=== PATIENT | male | born 1955 | race Caucasian/White ===

== ENCOUNTER 2019-04-29 09:42 | Inpatient (IN) | payer MEDICARE, MEDICAID, SELFPAY ==
[2019-04-29] VITALS (18 sets, daily range): BP systolic 100–161; BP diastolic 63–113; PULSE 71–120; RESP 16–28; TEMP 36–36.8; O2SAT 81–100
--- NOTE | 2019-04-29 | ECHO_ITS ---
Patient Info Name: Dez Platt Age: 64 years : 1955 Gender: Male Ht: 68 in Wt: 250 lbs BSA: 2.38 m2 HR: 95 bpm Heart Rhythm: Sinus Rhythm Technical Quality: Poor Exam Date: 04/29/2019 4:55 PM Exam Location: [facility] Pulmonary Patient Status: Inpatient Admit Date: 04/29/2019 Staff Ordering Physician: Wes Mandujano MD Coverstitch Elastic Attacher: Tomy Loco RDCS Attending Provider: Eliza Tilley MD Referring Physician: Nazia GOMEZ; Exam Type: CA echo dop color flow w con Study Info Indications R06.02 - Shortness of breath Complete two-dimensional, color flow and Doppler transthoracic echocardiogram is performed with contrast to opacify the left ventrical and to improve the deliniation of the left ventrical endocarial boarders. Contrast/Agitated Saline Contrast/Ag. Saline: Definity Amount: 3.00 ml Administered By: Adelaida Ansari RN Reason for Poor Study: poor echocardiographic windows History/Risk Factors SOB, COPD exacerbation; CAD, HTN. Summary 1. Technically difficult study, poor image quality. Low normal LV systolic function, ejection fraction estimated at about 50-55%. Cannot comment on segmental wall motion abnormality due to poor image quality. Diastolic dysfunction is present. valves are not well visualized. No hemodynamically significant aortic stenosis by Doppler. Unable to assess RVSP due to suboptimal TR jet. Left Ventricle Left ventricular chamber dimension is normal. Left ventricular systolic function is normal, estimated at 50-55%. There is mildly increased left ventricular wall thickness. Left ventricular septal wall motion is normal. The left ventricular diastolic function is abnormal. Right Ventricle Right ventricular chamber dimension is normal. Right ventricular systolic function is normal. Left Atria Left atrial chamber dimension is not well visualized. Right Atria Right atrial chamber dimension is not well visualized. Aortic Valve The aortic valve is not well visualized. Pulmonic Valve The pulmonic valve is not well visualized. Mitral Valve The mitral valve has not well visualized. Tricuspid Valve The tricuspid valve leaflets are not well visualized. Pericardium/Pleural The pericardium appears epicardial fat pad. Aorta The aortic root size at the sinus of Valsalva is not well visualized. The prox ascending aorta size is not well visualized. Left Ventricular Outflow Tract Name Value Normal LVOT 2D LVOT Diameter 2.00 cm LVOT Doppler LVOT Peak Gradient 3 mmHg LVOT Mean Gradient 1 mmHg LVOT VTI 10.60 cm LVOT VTI/AV VTI Ratio 0.59 LVOT Stroke Volume 33.41 ml LVOT CO 2.99 l/min LVOT CI 1.26 L/min/m2 Aortic Valve Name Value Normal
--- NOTE | ~2019-04-29 | XR_ITS ---
EXAMINATION: XR chest 2V EXAM DATE: 04/29/2019 10:26 INDICATION: Upper mid back pain since fall 2018. TECHNIQUE: Frontal and lateral projections of the chest obtained and reviewed. Comparison is made to prior examination from 05/11/2018. FINDINGS: The lungs are clear. There are no pleural effusions. The cardiomediastinal silhouette is within normal limits. There is no pneumothorax suspected. The bones and soft tissues are unremarkab le. IMPRESSION: No acute cardiopulmonary findings. Reviewed, dictated and finalized at location A. ETRICS INSTRUCTOR
--- NOTE | ~2019-04-29 | CT_ITS ---
EXAMINATION: CTA chest PE protocol EXAM DATE: 04/30/2019 09:28 INDICATION: Respiratory recent travel. COPD emphysema bronchitis asthma. Elevated troponin. History h ypertension. TECHNIQUE: Spiral CTA of the chest (pulmonary arteries) was performed with 100 cc Omnipaque 350 intr avenous contrast injection. Images were acquired during the pulmonary arterial phase. Coronal maxi mum intensity projection 3D-reconstructions were created by the technologist on dedicated workstation . Axial, coronal and sagittal reformatted images were reviewed. The dose-length product (DLP) for t his examination was 781.06 mGy-cm. The exposure was tailored according to patient size (auto mA exp osure control), and iterative reconstruction (ASIR) was used as additional dose reduction technique. Comparison is made to prior examination from 02/15/2019. FINDINGS: Pulmonary arteries are well opacified and without intraluminal filling defects. Mildly dil ated ascending aorta at 4.6 cm. The main, central pulmonary arteries are dilated which can indicate e levated pulmonary arterial pressure, pulmonary arterial hypertension. No thoracic aortic dissection . There is moderate to severe emphysema, upper lobes most affected. Some scattered small regions of bilateral tree-in-bud opacities, post infectious or possibly infectious. These are new compared to pr ior study. No confluent consolidation. There are no pleural or pericardial effusions. Tracheobronc hial tree is patent. There is no mediastinal, hilar or axillary lymphadenopathy. There is no pneu mothorax. Heart normal in size. There is moderate coronary arterial calcification, arterial scler osis. Upper abdomen is unremarkable. There is mild thoracic spondylosis without osteoblastic or os teolytic lesions identified. IMPRESSION: 1. No pulmonary emboli. 2. Small regions tree-in-bud opacities likely postinfectious or possibly infectious. These are new c ompared to February examination. 3. Moderate to severe emphysema. Reviewed, dictated and finalized at location A. OW DRAPER IMPRESSION: 1. No pulmonary emboli. 2. Small regions tree-in-bud opacities likely postinfectious or possibly infec tious. These are new compared to February examination. 3. Moderate to severe emphysema.
--- NOTE | 2019-04-29 09:50 | ECG_ITS ---
Measurements Intervals [place] Rate: 112 P: 83 MT: 177 QRS: 239 QRSD: 109 T: 62 QT: 334 QTc: 457 Interpretive Statements SINUS TACHYCARDIA RIGHT AXIS DEVIATION INCOMPLETE RIGHT BUNDLE BRANCH BLOCK CONSIDER ANTEROLATERAL INFARCT, AGE INDETERMINATE INFERIOR INFARCT, AGE INDETERMINATE BASELINE ARTIFACT- I, II, III, AVR, AVL, AVF, V1 ABNORMAL ECG Electronically Signed On 04-29-2019 17:26:42 ILLUSTRATOR SET by Yonatan Kennedy D.O.
[2019-04-29 10:29] LABS: Basophils Percent Auto 0.3 % (0.2-1.2); Eosinophils Absolute Auto 0.1 K/mm3 (0-0.3); Eosinophils Percent Auto 0.6 % (0-4.4); Hemoglobin 14.5 g/dL (14.0-18.0); Immature Granulocyte Absolute 0.09 K/mm3 (0.00-0.031); Immature Granulocyte Percent A 0.7 % (0-0.5); Lymphocytes Absolute Auto 0.83 K/mm3 (0.9-3.2); Lymphocytes Percent Auto 6.8 % (18.3-44.2); Mean Corpuscular HGB Conc 33.7 g/dl (32-36); Mean Corpuscular Hemoglobin 36.3 pg (26-34); Mean Corpuscular Volume 107.5 fl (80-100); Mean Platelet Volume 10.3 fl (7.4-10.4); Monocytes Absolute Auto 1.1 K/mm3 (0.1-0.6); Monocytes Percent Auto 9.3 % (2.6-8.5); Neutrophils Absolute Auto 10.1 K/mm3 (1.3-6.7); Neutrophils Percent Auto 82.3 % (45.5-73.1); Platelet Count Result 334 k/mm3 (150-375); Red Cell Distribution Width 13.4 % (11.5-14.5); White Blood Count 12.2 K/mm3 (4.5-10.0)
--- NOTE | 2019-04-29 11:11 | ED.SOB ---
HPI - SOB/Dyspnea General Chief Complaint: Shortness of Breath/Dyspnea Stated Complaint: anxiety/diff breathing Time Seen by Provider: 04/29/19 09:54 Source: patient and RN notes reviewed Mode of arrival: ambulatory Limitations: no limitations History of Present Illness HPI Narrative: Pt is a 64 y/o male who presents to the ED with c/o SOB which began 5 days ago. Pt states he recently traveled by air from [place] back here 5 days ago and has been experiencing increasing SOB and anxiety since then. He also reports diaphoresis and a productive cough of white sputum. He reports his symptoms are alleviated when he sits up, but are aggravated when he lays down on his back. Pt reports he is typically on 2 liters of oxygen at night only, but this has not been alleviating his symptoms. Pt was at 81% oxygen saturation upon arrival to the ED. After starting the pt on 4 liters of oxygen, his oxygen saturation increased to 95%. Pt reports a PMHx of COPD, but denies a PMHx of CHF. MD elicited complaint: shortness of breath Pertinent past history: COPD Onset (ago): day(s) (5 days ago) Context: anxiety and other (recent air travel) Timing: constant Exacerbating factors: lying flat Relieving factors: oxygen (4 liters) and other (sitting up) Known history of: COPD Associated symptoms: cough (productive), sputum production (white) and diaphoresis Related Data Home Medications Medication Instructions Recorded Confirmed albuterol sulfate 2.5 mg INHALATION Q4-6H PRN 01/30/19 alprazolam 0.25 mg tablet 0.25 mg PO BID 01/30/19 metoprolol succinate 50 mg capsule 50 mg PO DAILY 01/30/19 sprinkle, ext. release 24 hr aspirin 81 mg tablet,delayed 81 mg PO DAILY 01/31/19 release ursodiol 300 mg capsule 300 mg PO QID cap 01/31/19 Allergies Allergy/AdvReac Type Severity Reaction Status Date / Time adhesive tape Allergy Mild BLISTERS Verified 03/05/19 10:50 ciprofloxacin Allergy Unknown Rash Verified 03/05/19 10:50 venom-honey bee Allergy Unknown ANAPHYLAXIS Verified 03/05/19 10:50 Review of Systems Review of Systems: All systems reviewed & are unremarkable except as noted in HPI and below Constitutional: Constitutional: Reports excessive sweating Cardiovascular: Cardiovascular: Reports diaphoresis Respiratory: Respiratory: Reports cough (productive), Reports dyspnea and Reports other (white sputum production) Psychiatric: Psychiatric: Reports anxiety (increased) [facility] Past Medical History Medical History (Updated 04/29/19 @ 15:48 by Michel Kline MD) Anemia Arthritis CAD (coronary atherosclerotic disease) Diverticulitis Esophageal ulcer GERD (gastroesophageal reflux disease) GI bleed Hypercholesterolemia Hypertension Liver disease Rectal polyp TIA (transient ischemic attack) Surgical History Surgical History (Updated 04/29/19 @ 11:29 by Raeann Bardales) H/O inguinal hernia repair H/O vasectomy History of appendectomy History of colon resection Hx of tonsillectomy Social History Social History Smoking packs per day: 1 Smoking cigarettes per day: 20.0 Smoking status: Current every day smoker Alcohol intake: current Gender identity (if verbalized by the patient): Male Exam Narrative: Exam Narrative: GENERAL: Well-appearing, well-nourished, extremely diaphoretic and anxious. HEAD: Normocephalic, atraumatic. EYES: PERRLA and EOMI. ENT: Mucous membranes moist. NECK: Supple. CHEST: Bilateral wheeze and rhonchi HEART: Regular rate and rhythm. No murmur heard. Normal peripheral pulses. ABDOMEN: Soft, non tender, non distended, normal active bowel sounds. EXTREMITIES: Normal range of motion. No edema. SKIN: Diaphoretic NEURO: No focal deficits. Alert and oriented x3. PSYCH: Normal mood and affect. Course Course Emergency Course: Patient have to work after couple doses of Ativan seem to be more relaxed. However throughout his entire stay he den
[2019-04-29 11:16] LABS: Blood Urea Nitrogen 12 mg/dL (9-20); Calcium 9.5 mg/dL (8.4-10.2); Carbon Dioxide 29 mmol/L (22-30); Chloride 96 mmol/L (98-107); Estimated CRCL calculation 92 ml/min; Estimated Glomerular Filt Rate > 60; Glucose 123 mg/dL (75-110); Sodium 136 mmol/L (137-145)
[2019-04-29] MEDS: LORAZEPAM INJ 2 MG/ML VIAL 0.5 MG IV PUSH ×2 (11:18→13:30)
[2019-04-29] MEDS: methylPREDNISolone SOD SUCC 125 MG VIAL (11:19)
[2019-04-29] MEDS: FUROSEMIDE INJ 40 MG/4 ML VIAL (11:19)
[2019-04-29 11:38] LABS: Alveolar/Arterial O2 Gradient 121.1 mmHg; Base Excess ABG 3.2 mEq/l (+/-2.0); Device NASAL CANNULA; Fractional Inspired Oxygen 36 %; HCO3 ABG 30.2 mEq/l (22.0-26.0); Modified Allen's Test Pass; Oxygen Content ABG 19.5 %vol (16.0-22.0); Oxygen Saturation ABG 93.4 % (95.0-100.0); Oxyhemoglobin 91.1 % THb (90.0-100.0); PCO2 ABG 55.4 mmHg (35.0-45.0); PO2 ABG 71.3 mmHg (80.0-100.0); PO2 FiO2 Ratio Arterial Blood 1.98 %; Site Drawn RIGHT RADIAL; Total Hemoglobin 15.2 g/dL (12.0-18.0); pH ABG 7.355 (7.350-7.450)
[2019-04-29 11:39] LABS: NT Pro B Type Natriuretic Pept 347 PG/ML (5-100)
--- NOTE | 2019-04-29 13:03 | ECG_ITS ---
Measurements Intervals [place] Rate: 102 P: 76 IA: 167 QRS: 239 QRSD: 109 T: 66 QT: 351 QTc: 458 Interpretive Statements SINUS TACHYCARDIA RIGHT AXIS DEVIATION INCOMPLETE RIGHT BUNDLE BRANCH BLOCK LOW QRS VOLTAGE IN LIMB LEADS POOR R WAVE PROGRESSION, ANTERIOR LEADS MINIMAL Q WAVES- LATERAL LEADS INFERIOR INFARCT, AGE INDETERMINATE BORDERLINE T WAVE ABNORMALITY- ANTERIOR LEADS BASELINE ARTIFACT- II, III, AVL, AVF, V1, V3-V6 ABNORMAL ECG Electronically Signed On 04-29-2019 17:33:32 INFRASTRUCTURE TECHNICIAN by Yonatan Kennedy D.O.
--- NOTE | 2019-04-29 13:26 | PC.NURSE ---
ERP CONRADO VERBAL ORDER FOR 0.5 MG ATIVAN IVP STAT. ORDER PLACED.
[2019-04-29 13:49] LABS: D Dimer 0.86 ug/mL (<0.48)
[2019-04-29 14:15] LABS: Troponin I 0.649 ng/mL (0.000-0.034)
[2019-04-29] MEDS: METOPROLOL TARTRATE INJ 5 MG/5 ML VIAL (15:21)
[2019-04-29] MEDS: NITROGLYCERIN OINTMENT 1 INCH DOSE (15:21)
--- NOTE | 2019-04-29 16:04 | PM.CNCAR ---
Assessment and Plan Additional Plan Elevated troponin level done in this 64-year-old man who appears clinically to have obvious COPD exacerbation. 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 As stated above he has had these inferior Q-waves chronically. At the moment I will order an echocardiogram to see if he has wall motion abnormalities compatible with the infarction described above. It would be interesting to review the stress test findings of those are in the old records. At this point I do not believe he is a candidate for an ischemic evaluation since his work of breathing is his principal problem and needs to be addressed by the primary team. He is on appropriate medical therapy for his heart including aspirin anti-platelet therapy beta-madisyn and BRYN-inhibitor. Wes Mandujano MD [facility] History of Present Illness History of Present Illness Consult date/time: Date of service: 04/29/19 16:04 Reason For Visit: non stemi Narrative: This is a 64-year-old man I am seeing in the emergency room he is being admitted to the hospitalist service because of dyspnea, apparent COPD exacerbation. In the emergency room for reasons that are not immediately clear troponin levels were done and are abnormal at 0.6 resulting in the request for me to see him in consultation. The patient is a gentleman with well known significant lung disease due to heavy tobacco use. According to the records he has accumulated between 80-100 pack years of smoking and sees a offset assistant press operator as well as his PCP and has significant chronic obstructive lung disease. Patient states that he does not believe he is known to have any significant cardiac problems. Before this he denies any specific symptoms of chest pain. He states that his PCP has performed stress test on him several times over the years he can't remember the reason for those test but he was told that they were favorable results. In the emergency room he was being evaluated for his respiratory difficulty and electrocardiogram was done which shows sinus mechanism with inferior Q-waves compatible with previous inferior infarction. Looking at his chart these are not new electrocardiographic findings. 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 No surgical treatment of this was felt to be appropriate and was not recommended. He states his left carotid artery was patent and providing adequate cerebral perfusion. Patient is in the ER room 8. Awaiting for a bed upstairs and so I came down here to see him. He does not appear to be in any distress he was talking to family members on his cell phone. Review of Systems Constitutional: Constitutional: Reports lethargy Eyes: Eyes: Reports no additional eye complaints ENT: Reports system reviewed and no additional complaints, except as documented Cardiovascular: Cardiovascular: Reports no additional cardiovascular complaints Respiratory: Respiratory: Reports chest congestion, Reports dyspnea and Reports wheezing Gastrointestinal: Gastrointestinal: Reports no additional gastrointestinal complaints Genitourinary: Genitourinary: Reports no additional male genitourinary complaints Comments: Previous history of colovesical fistula repaired in the past according to his history today. Musculoskeletal: Musculoskeletal: Reports no additional musculoskeletal complaints Neurologic: Reports system reviewed and no additional complaints, except as documented [facility] Past Medical History Medical History (Updated 04/29/19 @ 15:48 by Michel Kline MD) Anemia Arthritis CAD (coronary atherosclerotic disease) Diverticulitis Esophageal ulcer GERD (gastroe
[2019-04-29] MEDS: PERFLUTREN LIPID MICROSPHERES 1.5 ML VIAL DILUTED TO 10 ML TOTAL VOLUME IV PUSH (17:14)
--- NOTE | 2019-04-29 17:21 | ADMIMU ---
This patient, Dez Platt, was admitted to IMU status, and placed in IMU Room 202-01. Patient/family oriented to hospital policies and general routines including ID bracelet, bed and alarms, visiting hours, pain management, procedures, bathroom and other care routines, personal items, smoking policy, room service/diet, and visiting hours. Valuables list has been completed. Information on how to activate the Rapid Response Team has been discussed. Patient/Family are encouraged to report perceived risks to care and to ask questions if they do not understand what they are told or what they should do.
--- NOTE | 2019-04-29 17:42 | PM.IMHP ---
H&P: HPI History of Present Illness Chief complaint: non stemi Narrative: Dez Platt is a 64 year old male who lives home alone. He does have severe COPD. The patient denies having any history of CHF. He denies having any coronary artery disease. The patient stated he became short of breath approximately 5 days going he was more anxious. Patient stated he was having a panic attack and became very diaphoretic. The patient states that he has a bed at home that he can races had in his feet. He never lays flat. The patient is having thick yellow sputum. He does wear oxygen at night but he tells me that he does not have sleep apnea. He tells me that he did apneic link and they determined that he did get hypoxic during the night. He states that he just worse the 2 L at night. He also has nebulizer treatments at home that he has been using. The patient stated that he recently went to [place] and just got back a few days ago. He has had no history of any DVTs or PEs has no swelling in his legs. Patient had O2 saturation of 81% when he arrived to the emergency room. He was started on 4 L per nasal cannula his O2 saturations came back up to 95%. On his ABGs pH was normal but he his CO2 slightly high at 55.4 PO2 71.3. Bicarb 30.2. Chest x-ray shows no acute cardiopulmonary findings. Echo was performed but not read as of yet. Patient was given IV Lasix and started on IV Solu-Medrol in the emergency room he was given nebulizer treatments. He was given metoprolol for his elevated blood pressure. The patient was very talkative and talking full sentences. Date of service 04/29/2019 Review of Systems Review of Systems: Narrative: The patient was unsure about on his TIA diagnosis. The patient states that he lost temporary vision in the right eye and went to the eye doctor and they told him that he had a stroke in his right eye. All systems reviewed & are unremarkable except as noted in HPI and below Constitutional: Constitutional: Reports as per HPI and Reports no additional constitutional complaints Eyes: Eyes: Reports as per HPI and Reports no additional eye complaints ENT: Reports system reviewed and no additional complaints, except as documented and Reports Normal hearing present Cardiovascular: Cardiovascular: Reports no additional cardiovascular complaints Respiratory: Respiratory: Reports no additional respiratory complaints and Reports no additional respiratory complaints Gastrointestinal: Gastrointestinal: Reports as per HPI and Reports no additional gastrointestinal complaints Musculoskeletal: Musculoskeletal: Reports no additional musculoskeletal complaints Integumentary/Breasts: Skin/Breast: Reports system reviewed and no additional complaints, except as docu and Reports as per HPI Neurologic: Reports system reviewed and no additional complaints, except as documented, Reports as per HPI and Reports Normal hearing present Psychiatric: Psychiatric: Reports no additional psychiatric complaints and Reports as per HPI Comments: Patient stated that he has panic attacks at times. Endocrine: Endocrine: Reports no additional endocrine complaints Hematologic/Lymphatic: Hematologic/Lymphatic: Reports no additional hematologic/lymphatic complaints Allergic/Immunologic: Allergic/Immunologic: Reports no additional allergic/immunologic complaints [facility] Past Medical History Medical History (Updated 04/29/19 @ 18:18 by Sena Osullivan NP) Anemia Arthritis CAD (coronary atherosclerotic disease) Diverticulitis Esophageal ulcer Essential (primary) hypertension GERD (gastroesophageal reflux disease) GI bleed Hypercholesterolemia Hypertension Liver disease Mixed hyperlipidemia Rectal polyp TIA (transient ischemic attack) 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 now sees okay Surgical History Surgical History (Updated 04/29/19 @ 18:00 by Sena Osullivan NP) H/O inguinal hernia repair H/O rectal polypectomy H/O vasectomy Histor
[2019-04-29] MEDS: ALPRAZOLAM 0.25 MG TABLET PO (18:22)
[2019-04-29] MEDS: methylPREDNISolone SOD SUCC 125 MG VIAL 60 MG IV PUSH (18:22)
[2019-04-29] MEDS: lisinopriL 20 MG TABLET 40 MG PO (18:24)
[2019-04-29 18:35] LABS: Troponin I 0.514 ng/mL (0.000-0.034)
[2019-04-29] MEDS: IPRATROPIUM BR 0.02% INH SOLN 0.5 MG/2.5 ML VIAL INHALATION (20:23)
[2019-04-29] MEDS: ALBUTEROL SULFATE NEB 2.5 MG/0.5 ML INH 5 MG INHALATION (20:23)
[2019-04-29 20:41] LABS: Troponin I 0.473 ng/mL (0.000-0.034)
[2019-04-29] MEDS: ursodioL 300 MG CAPSULE PO (21:32)
[2019-04-30] VITALS (24 sets, daily range): BP systolic 120–151; BP diastolic 67–94; PULSE 77–110; RESP 16–24; TEMP 35.8–36.9; O2SAT 91–100
[2019-04-30] MEDS: methylPREDNISolone SOD SUCC 125 MG VIAL 60 MG IV PUSH ×4 (00:10→17:18)
[2019-04-30] MEDS: IPRATROPIUM BR 0.02% INH SOLN 0.5 MG/2.5 ML VIAL INHALATION ×4 (02:02→20:19)
[2019-04-30] MEDS: ALBUTEROL SULFATE NEB 2.5 MG/0.5 ML INH 5 MG INHALATION ×4 (02:02→20:18)
[2019-04-30 04:52] LABS: Basophils Percent Auto 0.1 % (0.2-1.2); Hematocrit 40.2 % (42.0-52.0); Hemoglobin 13.3 g/dL (14.0-18.0); Immature Granulocyte Absolute 0.05 K/mm3 (0.00-0.031); Immature Granulocyte Percent A 0.5 % (0-0.5); Lymphocytes Absolute Auto 0.35 K/mm3 (0.9-3.2); Lymphocytes Percent Auto 3.4 % (18.3-44.2); Mean Corpuscular HGB Conc 33.1 g/dl (32-36); Mean Corpuscular Hemoglobin 35.5 pg (26-34); Mean Corpuscular Volume 107.2 fl (80-100); Mean Platelet Volume 10.2 fl (7.4-10.4); Monocytes Absolute Auto 0.3 K/mm3 (0.1-0.6); Monocytes Percent Auto 3.1 % (2.6-8.5); Neutrophils Absolute Auto 9.4 K/mm3 (1.3-6.7); Neutrophils Percent Auto 92.9 % (45.5-73.1); Platelet Count Result 325 k/mm3 (150-375); Red Blood Count 3.75 M/mm3 (4.6-6.20); Red Cell Distribution Width 13.1 % (11.5-14.5); White Blood Count 10.2 K/mm3 (4.5-10.0)
[2019-04-30 05:13] LABS: Blood Urea Nitrogen 19 mg/dL (9-20); Calcium 9.4 mg/dL (8.4-10.2); Carbon Dioxide 32 mmol/L (22-30); Chloride 94 mmol/L (98-107); Estimated CRCL calculation 126 ml/min; Estimated Glomerular Filt Rate > 60; Glucose 141 mg/dL (75-110); Magnesium 2.3 mg/dL (1.6-2.3); Potassium 4.4 mmol/L (3.4-5.0); Sodium 134 mmol/L (137-145)
[2019-04-30] MEDS: lisinopriL 20 MG TABLET 40 MG PO ×2 (08:12→17:18)
[2019-04-30] MEDS: ALPRAZOLAM 0.25 MG TABLET PO ×2 (08:12→17:17)
[2019-04-30] MEDS: METOPROLOL SUCCINATE EXT REL 50 MG TABCR PO (08:13)
[2019-04-30] MEDS: CLOPIDOGREL BISULFATE 75 MG TABLET PO (08:13)
[2019-04-30] MEDS: ursodioL 300 MG CAPSULE PO (08:13)
[2019-04-30] MEDS: ATORVASTATIN 10 MG TABLET PO (08:13)
[2019-04-30] MEDS: ASPIRIN 81 MG CHEWABLE TABLET PO (08:13)
[2019-04-30] MEDS: ESCITALOPRAM OXALATE 10 MG TABLET PO (08:13)
--- NOTE | 2019-04-30 11:11 | PM.PNCARD ---
Progress Note: A&P Assessment and Plan (1) Elevated troponin: Code(s): R79.89 - Other specified abnormal findings of blood chemistry Status: Acute Assessment and Plan: Patient has some mild troponin elevation; no symptoms of chest pain at present. Echocardiogram which I personally evaluated shows EF 50-55%. He had MPI done on 07/30/2018 which was negative as ischemia. Mild troponin elevation appears to be type 2 [place] in the setting of COPD exacerbation, respiratory failure. Continue antiplatelet therapy. Continue statin. Outpatient follow-up with Cardiology. Need for any further ischemic evaluation to be determined as an outpatient. (2) Acute exacerbation of chronic obstructive pulmonary disease (COPD): Code(s): J44.1 - Chronic obstructive pulmonary disease with (acute) exacerbation Status: Acute Assessment and Plan: Management as per primary team Subjective Date/time seen: 04/30/19 11:11 Patient reports improvement in his shortness of breath. Denies chest pain. He still coughs with scanty expectoration. Denies any fever or chills. Exam Const: General: no acute distress, alert and awake HENMT: Head: normocephalic and atraumatic Ears: hearing grossly normal bilaterally and external ears normal General nose exam: Normal external nose present and no epistaxis Face and sinus: normal facial exam and no ecchymosis Mouth: Yes tongue normal and Yes moist mucous membranes Teeth and gingiva: dentition normal Eyes: Conjunctivae: conjunctivae normal Sclera: sclerae normal Pupils: Equal, round and reactive pupils present EOM: EOMs intact bilaterally Neck: Neck: normal visual inspection, supple and no JVD Thyroid: thyroid normal Carotids: normal carotid upstroke Resp: Effort & Inspection: normal respiratory effort, able to speak in complete sentences and audible wheezes Cardio: Jugular venous distension: no JVD Rate: regular rate Rhythm: regular rhythm Heart sounds: S1 normal heart sound present, S2 normal heart sound present and no murmurs GI: Inspection: normal to inspection GI Palp: No abdominal tenderness Auscultation: normal bowel sounds Skin: Other: no rash on exposed areas, no cyanosis Neuro: Cranial nerves: Yes Equal, round and reactive pupils present and Yes Normal hearing present Other: alert, oriented, no major focal deficits on gross neurological examination Extrem: Other: no edema, no cyanosis, no major deformities Psych: Appearance: grossly normal Mental Status: mental status grossly normal Objective Data Vital Signs Vital Signs: Vital Signs - 24 hr 04/29/19 13:04 04/29/19 15:21 04/29/19 15:30 Temperature Pulse Rate 113 H 104 H 86 Respiratory Rate 18 16 Blood Pressure 160/113 H 139/113 H Pulse Oximetry 100 93 04/29/19 16:11 04/29/19 16:20 04/29/19 17:00 Temperature Pulse Rate 91 95 91 Respiratory Rate 16 Blood Pressure 153/107 H 112/90 Pulse Oximetry 92 95 04/29/19 17:16 04/29/19 18:00 04/29/19 19:27 Temperature 36.0 C L 36.8 C Pulse Rate 94 94 98 Respiratory Rate 20 24 H Blood Pressure 138/103 H 100/63 Pulse Oximetry 97 93 04/29/19 20:00 04/29/19 20:25 04/29/19 20:35 Temperature Pulse Rate 107 H 110 H 115 H Respiratory Rate 24 H 24 H Blood Pressure Pulse Oximetry 100 95 04/29/19 21:00 04/29/19 22:00 04/29/19 23:47 Temperature 36.1 C L Pulse Rate 91 71 Respiratory Rate 18 Blood Pressure 124/74 Pulse Oximetry 95 98 04/30/19 00:00 04/30/19 02:00 04/30/19 02:05 Temperature Pulse Rate 77 81 91 Respiratory Rate 20 Blood Pressure Pulse Oximetry 98 04/30/19 03:51 04/30/19 04:00 04/30/19 06:00 Temperature 36.9 C Pulse Rate 79 81 82 Respiratory Rate 18 Blood Pressure 120/67 Pulse Oximetry 96 96 04/30/19 07:22 04/30/19 07:37 04/30/19 08:00 Temperature 35.8 C L Pulse Rate 86 98 98 Respiratory Rate 16 18 24 H Blood Pressure 134/89 Pulse Oximetry 91 100
--- NOTE | 2019-04-30 11:13 | PM.IMPN ---
Progress Note: A&P Assessment and Plan (1) Acute and chronic respiratory failure: Code(s): J96.20 - Acute and chronic respiratory failure, unspecified whether with hypoxia or hypercapnia Status: Acute Assessment and Plan: Patient hypoxic and hypercapnic on admission. pH normal so some of this may be chronic. Has chronic nocturnal hypoxia requiring O2 at night. Clinically improving. Wean O2 as toelrated. (2) COPD (chronic obstructive pulmonary disease): Qualifiers: COPD type: COPD with acute exacerbation Qualified Code(s): J44.1 - Chronic obstructive pulmonary disease with (acute) exacerbation Code(s): J44.9 - Chronic obstructive pulmonary disease, unspecified Status: Acute Assessment and Plan: Improving. CTA showing moderate to severe emphysema. Smoking cessation imperative. THis was discussed with the patient in detail. Continue with nebulizer treatments and Solu-Medrol. CTA noted and possibly infectious or postinfectious. Currently on doxycycline which we will continue. (3) Elevated troponin: Code(s): R79.89 - Other specified abnormal findings of blood chemistry Status: Acute Assessment and Plan: Trop elevated to 0.65. EKG reviewed showing RBBB but no acute changes. Cardiology consulted and felt Type II [place] from the respiratory failure. Echo showing EF 50% and diastolic dysfunction. Further workup being considered as outpatient. (4) Essential (primary) hypertension: Code(s): I10 - Essential (primary) hypertension Status: Chronic Assessment and Plan: BP reviewed on 04/30/19. BP mostly well controlled. Continue with lisinopril and metoprolol. Continue to monitor. (5) Mixed hyperlipidemia: Code(s): E78.2 - Mixed hyperlipidemia Status: Chronic Assessment and Plan: LFTs in the past have been normal. Continue home Lipitor. (6) Hypoxia: Code(s): R09.02 - Hypoxemia Status: Acute Assessment and Plan: Related to COPD. Has chronic nocturnal hypoxia requiring 2L NC. He may have LIANNE given the desats during the apnea link. CTA negative for PE. Treatment as above. Wean O2 as tolerated during the day. (7) Iron deficiency anemia: Qualifiers: Iron deficiency anemia type: unspecified iron deficiency Qualified Code(s): D50.9 - Iron deficiency anemia, unspecified Code(s): D50.9 - Iron deficiency anemia, unspecified Status: Acute Assessment and Plan: Stable. Hgb 14 on admission and about the same today. Contine to follow. No longer on iron. (8) Anxiety: Code(s): F41.9 - Anxiety disorder, unspecified Status: Acute Assessment and Plan: Patient has a hx of anxiety with panic attacks. Currently on scheduled Xanax and Lexapro. Mood stable. Continue to monitor. (9) WHITNEY (dyspnea on exertion): Code(s): R06.09 - Other forms of dyspnea Status: Acute Assessment and Plan: Related to above. (10) Tobacco abuse: Code(s): Z72.0 - Tobacco use Status: Acute Assessment and Plan: Patient educated about the benefits of smoking cessation. Even discussed the benefit of not smoking marijuana or any other agents using the lung as the portal of entry. Subjective Date/time seen: 04/30/19 11:13 Interval history: 64yo male with COPD and chronic respiratory failure here for COPD exacerbation. Assuming care. Chart reviewed. Patient complains of dry mouth. He has not had breakfast this morning. Still has a cough productive white sputum. He has chronic respiratory failure wearing 2 L of oxygen at night. He also uses albuterol 2 to 3 times a day on average. He ran out of his trelogy recently and converted back to [employer] that he had left over. No chest pain. No nausea or vomiting. He does feel hungry. Exam Narrative: Exam Narrative: Gen - NARD Chest -diffuse harsh inspiratory
[2019-04-30 20:51] LABS: Free T4 Free Thyroxine Reflex 0.79 ng/dL (0.78-2.19)
[2019-04-30 22:31] LABS: Total Triiodothyronine (T3) 0.68 NG/ML (0.97-1.69)
[2019-05-01] VITALS (25 sets, daily range): BP systolic 118–155; BP diastolic 66–107; PULSE 65–117; RESP 18–26; TEMP 35.9–37; O2SAT 91–97
[2019-05-01] MEDS: IPRATROPIUM BR 0.02% INH SOLN 0.5 MG/2.5 ML VIAL INHALATION ×4 (02:04→20:12)
[2019-05-01] MEDS: ALBUTEROL SULFATE NEB 2.5 MG/0.5 ML INH 5 MG INHALATION ×4 (02:04→20:12)
[2019-05-01] MEDS: methylPREDNISolone SOD SUCC 125 MG VIAL 60 MG IV PUSH ×3 (03:55→17:14)
[2019-05-01 04:53] LABS: Hematocrit 38.4 % (42.0-52.0); Hemoglobin 12.9 g/dL (14.0-18.0); Mean Corpuscular HGB Conc 33.6 g/dl (32-36); Mean Corpuscular Hemoglobin 35.4 pg (26-34); Mean Corpuscular Volume 105.5 fl (80-100); Mean Platelet Volume 10.1 fl (7.4-10.4); Platelet Count Result 346 k/mm3 (150-375); Red Blood Count 3.64 M/mm3 (4.6-6.20); Red Cell Distribution Width 12.9 % (11.5-14.5); White Blood Count 12.3 K/mm3 (4.5-10.0)
[2019-05-01 05:21] LABS: Blood Urea Nitrogen 25 mg/dL (9-20); Calcium 9.4 mg/dL (8.4-10.2); Carbon Dioxide 33 mmol/L (22-30); Chloride 90 mmol/L (98-107); Estimated CRCL calculation 109 ml/min; Estimated Glomerular Filt Rate > 60; Glucose 151 mg/dL (75-110); Sodium 132 mmol/L (137-145)
[2019-05-01 06:25] LABS: Folic Acid 7.4 ng/mL (2.76->20)
[2019-05-01] MEDS: ALPRAZOLAM 0.25 MG TABLET PO ×2 (08:56→17:13)
[2019-05-01] MEDS: lisinopriL 20 MG TABLET 40 MG PO ×2 (08:56→17:14)
[2019-05-01] MEDS: CLOPIDOGREL BISULFATE 75 MG TABLET PO (08:56)
[2019-05-01] MEDS: ATORVASTATIN 10 MG TABLET PO (08:56)
[2019-05-01] MEDS: ESCITALOPRAM OXALATE 10 MG TABLET PO (08:57)
[2019-05-01] MEDS: METOPROLOL SUCCINATE EXT REL 50 MG TABCR PO (08:57)
[2019-05-01] MEDS: ASPIRIN 81 MG CHEWABLE TABLET PO (08:58)
--- NOTE | 2019-05-01 10:47 | PM.PNCARD ---
Progress Note: A&P Assessment and Plan (1) Elevated troponin: Code(s): R79.89 - Other specified abnormal findings of blood chemistry Status: Acute Assessment and Plan: Mild troponin elevation; no symptoms of chest pain. Echocardiogram : EF 50-55%. He had MPI done on 07/30/2018 which was negative as ischemia. Mild troponin elevation appears to be type 2 VT in the setting of COPD exacerbation, respiratory failure. Continue antiplatelet therapy. Continue statin. Outpatient follow-up with Cardiology. See discharge instructions. (2) Acute exacerbation of chronic obstructive pulmonary disease (COPD): Code(s): J44.1 - Chronic obstructive pulmonary disease with (acute) exacerbation Status: Acute Assessment and Plan: Management as per primary team Additional Plan Plan discussed with Dr Mandujano [id number] 05/01/2019 Subjective Date/time seen: 05/01/19 10:47 Interval history: Follow-up for: Mild troponin elevation, COPD with acute exacerbation, hypertension, mixed hyperlipidemia Date of service: 05/01/2019 Subjective: Denied chest discomfort or lightheadedness. Cough is productive at times. Short of breath with exertional activity and anxiety. Just got off the phone with his sister and feeling very anxious. Review of Systems Constitutional: Constitutional: Reports lethargy Eyes: Eyes: Denies blurry vision ENT: Denies epistaxis Cardiovascular: Cardiovascular: Denies chest pain, Denies pedal edema, Denies leg edema, Denies lightheadedness and Denies palpitations Respiratory: Respiratory: Reports chest congestion, Reports cough (Productive only at times), Reports dyspnea, Reports dyspnea on exertion and Denies wheezing Gastrointestinal: Gastrointestinal: Denies abdominal pain Genitourinary: Genitourinary: Denies hematuria Musculoskeletal: Musculoskeletal: Reports arthralgias Integumentary/Breasts: Skin/Breast: Denies erythema and Denies rash Neurologic: Denies headache(s) and Denies numbness Psychiatric: Psychiatric: Reports anxiety Exam Const: General: no acute distress, alert and awake HENMT: Head: normocephalic and atraumatic Ears: hearing grossly normal bilaterally and external ears normal General nose exam: Normal external nose present, Normal nares present and no epistaxis Face and sinus: normal facial exam and no ecchymosis Mouth: Yes tongue normal and Yes moist mucous membranes Eyes: Conjunctivae: conjunctivae normal Sclera: sclerae normal Neck: Neck: normal visual inspection and supple Other: No audible bruits, JVD difficult to assess with very thick neck Resp: Effort & Inspection: normal respiratory effort and able to speak in complete sentences Auscultation: rhonchi and diminished lung sounds bilateral throughout Cardio: Rate: tachycardic Rhythm: regular rhythm Heart sounds: S1 normal heart sound present, S2 normal heart sound present and no murmurs Peripheral pulses: Peripheral pulses 2+ throughout GI: Inspection: normal to inspection and distended Auscultation: normal bowel sounds Skin: General skin exam: normal color Lesions: lesions noted Other: no rash on exposed areas, no cyanosis Neuro: Cranial nerves: Yes Equal, round and reactive pupils present and Yes Normal hearing present Extrem: General: normal to inspection and pedal edema present Psych: Appearance: grossly normal Mental Status: mental status grossly normal Speech and movement: Normal speech and movement present Affect: Anxious affect present Attitude: cooperative Objective Data Vital Signs Vital Signs: Vital Signs - 24 hr 04/30/19 12:00 04/30/19 14:00 04/30/19 14:36 Temperature 36.6 C Pulse Rate 99 103 H 109 H Respiratory Rate 24 H 20 Blood Pressure 151/91 H Pulse Oximetry 100 04/30/19 14:51 04/30/19 16:00 04/30/19 18:00 Temperature 36.2 C L Pulse Rate 109
[2019-05-01] MEDS: ONDANSETRON INJ 4 MG/2 ML VIAL IV PUSH (17:13)
--- NOTE | 2019-05-01 18:15 | PM.IMPN ---
Progress Note: A&P Assessment and Plan (1) Acute and chronic respiratory failure: Code(s): J96.20 - Acute and chronic respiratory failure, unspecified whether with hypoxia or hypercapnia Status: Acute Assessment and Plan: Patient hypoxic and hypercapnic on admission. pH normal so some of this may be chronic. Has chronic nocturnal hypoxia requiring O2 at night. Clinically improving. Wean O2 as toelrated. Home O2 evaluation close to discharge. (2) COPD (chronic obstructive pulmonary disease): Qualifiers: COPD type: COPD with acute exacerbation Qualified Code(s): J44.1 - Chronic obstructive pulmonary disease with (acute) exacerbation Code(s): J44.9 - Chronic obstructive pulmonary disease, unspecified Status: Acute Assessment and Plan: Improving. CTA showing moderate to severe emphysema. Influenza screen negative. Smoking cessation imperative. Continue with nebulizer treatments and Solu-Medrol. CTA noted and possibly infectious or postinfectious. Currently on doxycycline which we will continue. Wean O2 as tolerted. Out of bed. PT/OT (3) Elevated troponin: Code(s): R79.89 - Other specified abnormal findings of blood chemistry Status: Acute Assessment and Plan: Trop elevated to 0.65. EKG reviewed showing RBBB but no acute changes. Cardiology consulted and felt Type II [place] from the respiratory failure. Echo showing EF 50% and diastolic dysfunction. Further workup being considered as outpatient. (4) Essential (primary) hypertension: Code(s): I10 - Essential (primary) hypertension Status: Chronic Assessment and Plan: BP reviewed on 05/01/19. BP elevated at times but overall improved. Continue with lisinopril and metoprolol. Continue to monitor. (5) Mixed hyperlipidemia: Code(s): E78.2 - Mixed hyperlipidemia Status: Chronic Assessment and Plan: LFTs in the past have been normal. Continue home Lipitor. (6) Iron deficiency anemia: Qualifiers: Iron deficiency anemia type: unspecified iron deficiency Qualified Code(s): D50.9 - Iron deficiency anemia, unspecified Code(s): D50.9 - Iron deficiency anemia, unspecified Status: Acute Assessment and Plan: Stable. Hgb 14 on admission and stable. No longer on iron. Continue to follow. B12 low end of normal. Will add oral B12. (7) Anxiety: Code(s): F41.9 - Anxiety disorder, unspecified Status: Acute Assessment and Plan: Patient has a hx of anxiety with panic attacks. Currently on scheduled Xanax and Lexapro. Mood stable. Continue to monitor. (8) Tobacco abuse: Code(s): Z72.0 - Tobacco use Status: Acute Assessment and Plan: Patient educated about the benefits of smoking cessation. Also have discussed the benefit of not smoking marijuana or any other agents using the lung as the portal of entry. Subjective Date/time seen: 05/01/19 18:15 Interval history: 64yo male with COPD and chronic respiratory failure here for COPD exacerbation. SOB better. Cough productve whitish sputum. No n/v. Up to the chair earlier. +BM. Walking to the BR. No CP. Exam Narrative: Exam Narrative: Gen - NARD lying semirecumbent in bed Chest - expiratory wheezes, inspiratory rhonchi, nml RR CV - RRR; Tele showing PVCs Abd - soft, NT, +BS Ext - No pedal edema Psych - Nml mood and affect Skin - Warm and dry Objective Data Vital Signs Vital Signs: Vital Signs - 24 hr 04/30/19 19:45 04/30/19 20:00 04/30/19 20:19 Temperature 97.2 F L Pulse Rate 105 H 105 H 107 H Respiratory Rate 22 H 20 Blood Pressure 145/94 H Pulse Oximetry 95 04/30/19 20:22 04/30/19 20:25 04/30/19 22:00 Temperature Pulse Rate 109 H 93 Respiratory Rate 20 Blood Pressure Pulse Oximetry 94 04/30/19 23:48 05/01/19 00:00 05/01/19 02:00 Temperature 97.8 F Pulse Rate 89 65 67
--- NOTE | 2019-05-01 22:20 | PC.NURSE ---
Transfer received from IMU, room 202, per hospital bed. Belongings verified. Report received from RHONDA Menendez RN, per telephone at [phone].
--- NOTE | 2019-05-01 22:35 | PC.NURSE ---
Pt transferred to room 328 via bed with O2 on-accompanied by staff- personal belongings and home medications sent with pt report given to Tavia Acuña RN
[2019-05-01] MEDS: ACETAMINOPHEN 325 MG TABLET 650 MG PO (23:04)
[2019-05-02] VITALS (20 sets, daily range): BP systolic 121–150; BP diastolic 66–85; PULSE 66–98; RESP 18–22; TEMP 36.7–36.9; O2SAT 82–97
[2019-05-02] MEDS: methylPREDNISolone SOD SUCC 125 MG VIAL 60 MG IV PUSH ×4 (00:10→17:24)
[2019-05-02] MEDS: ALBUTEROL SULFATE NEB 2.5 MG/0.5 ML INH 5 MG INHALATION ×4 (02:20→20:17)
[2019-05-02] MEDS: IPRATROPIUM BR 0.02% INH SOLN 0.5 MG/2.5 ML VIAL INHALATION ×4 (02:20→20:16)
[2019-05-02] MEDS: METOPROLOL SUCCINATE EXT REL 50 MG TABCR PO (08:35)
[2019-05-02] MEDS: ASPIRIN 81 MG CHEWABLE TABLET PO (08:35)
[2019-05-02] MEDS: CLOPIDOGREL BISULFATE 75 MG TABLET PO (08:35)
[2019-05-02] MEDS: lisinopriL 20 MG TABLET 40 MG PO ×2 (08:35→17:24)
[2019-05-02] MEDS: ATORVASTATIN 10 MG TABLET PO (08:35)
[2019-05-02] MEDS: ALPRAZOLAM 0.25 MG TABLET PO ×2 (08:35→17:24)
[2019-05-02] MEDS: ESCITALOPRAM OXALATE 10 MG TABLET PO (08:35)
[2019-05-02] MEDS: CYANOCOBALAMIN 1,000 MCG TABLET 1000 MCG PO (08:36)
[2019-05-02 08:41] LABS: Blood Urea Nitrogen 23 mg/dL (9-20); Calcium 9.2 mg/dL (8.4-10.2); Carbon Dioxide 31 mmol/L (22-30); Chloride 87 mmol/L (98-107); Estimated CRCL calculation 96 ml/min; Estimated Glomerular Filt Rate > 60; Glucose 176 mg/dL (75-110); Magnesium 2.2 mg/dL (1.6-2.3); Potassium 4.3 mmol/L (3.4-5.0); Sodium 131 mmol/L (137-145)
--- NOTE | 2019-05-02 08:47 | PM.IMPN ---
Progress Note: A&P Assessment and Plan (1) Acute and chronic respiratory failure: Code(s): J96.20 - Acute and chronic respiratory failure, unspecified whether with hypoxia or hypercapnia Status: Acute Assessment and Plan: Patient hypoxic and hypercapnic on admission. pH normal so some of this may be chronic. Influenza negative. Has chronic nocturnal hypoxia requiring O2 at night. Clinically improving. Wean O2 as tolerated. (2) COPD (chronic obstructive pulmonary disease): Qualifiers: COPD type: COPD with acute exacerbation Qualified Code(s): J44.1 - Chronic obstructive pulmonary disease with (acute) exacerbation Code(s): J44.9 - Chronic obstructive pulmonary disease, unspecified Status: Acute Assessment and Plan: Improving. CTA showing moderate to severe emphysema. Smoking cessation imperative. Continue with nebulizer treatments and Solu-Medrol. CTA noted and possibly infectious or postinfectious. Currently on doxycycline for acute bronchitis. Wean to oral Prednisone tomorrow. Home O2 evaluation in the morning. (3) Elevated troponin: Code(s): R79.89 - Other specified abnormal findings of blood chemistry Status: Acute Assessment and Plan: Trop elevated to 0.65. EKG reviewed showing RBBB but no acute changes. Echo showing EF 50% and diastolic dysfunction. Cardiology consulted and felt Type II [place] from the respiratory failure. Further workup being considered as outpatient. Stop tele. (4) Essential (primary) hypertension: Code(s): I10 - Essential (primary) hypertension Status: Chronic Assessment and Plan: BP reviewed on 05/02/19. BP elevated at times. Continue with lisinopril and metoprolol. Continue to monitor. (5) Mixed hyperlipidemia: Code(s): E78.2 - Mixed hyperlipidemia Status: Chronic Assessment and Plan: LFTs in the past have been normal. Continue home Lipitor. (6) Hypoxia: Code(s): R09.02 - Hypoxemia Status: Acute Assessment and Plan: Related to COPD. Has chronic nocturnal hypoxia requiring 2L NC. He may have LIANNE. CTA negative for PE. Treatment as above. Wean O2 as tolerated during the day. (7) Iron deficiency anemia: Qualifiers: Iron deficiency anemia type: unspecified iron deficiency Qualified Code(s): D50.9 - Iron deficiency anemia, unspecified Code(s): D50.9 - Iron deficiency anemia, unspecified Status: Acute Assessment and Plan: Stable. Hgb 14 on admission and trended to 12.9 today. Continue to follow. No longer on iron. (8) Anxiety: Code(s): F41.9 - Anxiety disorder, unspecified Status: Acute Assessment and Plan: Patient has a hx of anxiety with panic attacks. Currently on scheduled Xanax and Lexapro. Mood stable. Continue to monitor. (9) WHITNEY (dyspnea on exertion): Code(s): R06.09 - Other forms of dyspnea Status: Acute Assessment and Plan: Related to above. (10) Tobacco abuse: Code(s): Z72.0 - Tobacco use Status: Acute Assessment and Plan: Patient educated about the benefits of smoking cessation. Even discussed the benefit of not smoking marijuana or any other agents using the lung as the portal of entry. Subjective Date/time seen: 05/02/19 08:47 Interval history: 64yo male with COPD and chronic respiratory failure here for COPD exacerbation. Feeling better. Shortness of breath improved. No chest pain. No nausea or vomiting. Did have indigestion last evening after a sub sandwich he describes is acid taste in his mouth with belching. Still with a productive cough of whitish sputum. Exam Narrative: Exam Narrative: Gen - NARD lying semirecumbent in bed Chest -mild bibasilar inspiratory crackles. Diffuse expiratory rhonchi/wheeze CV - RRR with distant S1-S2; Tele showing PVCs Abd -soft. Obese. Nontender. Positive melodie
--- NOTE | 2019-05-02 11:55 | HOMEO2EVAL ---
Home Oxygen Evaluation RC: Home Oxygen (O2) Evaluation Start: 05/02/19 08:49 Freq: ONCE Status: Active Protocol: RPE Activity Type Activity Date Activity User E-Sign Co-Sign Detail Recorded Client Recorded Date Recorded By Document 05/02/19 11:00 KMV [id number] 05/02/19 11:49 KMV Document 05/02/19 11:40 KMV [id number] 05/02/19 11:50 KMV 05/02/19 05/02/19 11:00 11:40 Home O2 Evaluation Test Phase Resting Exercise Oxygen Delivery Room Air Nasal Cannula Oxygen Flow Rate (L/min) 2 Pulse Oximetry (90-100 %) 85 L 91 Treatment Charges O2 Evaluation
[2019-05-02] MEDS: ONDANSETRON INJ 4 MG/2 ML VIAL IV PUSH ×2 (14:17→21:05)
--- NOTE | 2019-05-02 22:52 | PCPTNOTE ---
Attempted to see this patient this afternoon for initial eval....pt declined, stating that he was 'worn out' from OT and breathing treatment, that he had just returned to bed, and he wished to 'take a nap'...will see tomorrow as able
[2019-05-03 02:12] VITALS: PULSE 74; RESP 18
[2019-05-03 02:22] VITALS: PULSE 77; RESP 18
[2019-05-03 06:00] VITALS: BP 140/91; PULSE 79; RESP 18; TEMP 36.8; O2SAT 91
[2019-05-03] MEDS: ONDANSETRON INJ 4 MG/2 ML VIAL IV PUSH (08:32)
[2019-05-03] MEDS: ASPIRIN 81 MG CHEWABLE TABLET PO (08:32)
[2019-05-03 08:33] VITALS: PULSE 79
[2019-05-03] MEDS: METOPROLOL SUCCINATE EXT REL 50 MG TABCR PO (08:33)
[2019-05-03] MEDS: CLOPIDOGREL BISULFATE 75 MG TABLET PO (08:33)
[2019-05-03] MEDS: lisinopriL 20 MG TABLET 40 MG PO (08:33)
[2019-05-03] MEDS: ESCITALOPRAM OXALATE 10 MG TABLET PO (08:33)
[2019-05-03] MEDS: predniSONE 20 MG TABLET 40 MG PO (08:34)
[2019-05-03] MEDS: CYANOCOBALAMIN 1,000 MCG TABLET 1000 MCG PO (08:34)
[2019-05-03] MEDS: ALPRAZOLAM 0.25 MG TABLET PO (08:34)
[2019-05-03] MEDS: ATORVASTATIN 10 MG TABLET PO (08:34)
[2019-05-03 08:49] VITALS: PULSE 85; RESP 16
[2019-05-03] MEDS: ALBUTEROL SULFATE NEB 2.5 MG/0.5 ML INH 5 MG INHALATION (08:49)
[2019-05-03] MEDS: IPRATROPIUM BR 0.02% INH SOLN 0.5 MG/2.5 ML VIAL INHALATION (08:49)
[2019-05-03 09:10] VITALS: PULSE 95; RESP 18
--- NOTE | 2019-05-03 11:20 | PM.DS ---
DS: Diagnosis Admitting Diagnosis Admitting Diagnosis: Chronic obstructive pulmonary disease, unspecified Discharge Diagnosis (1) Acute and chronic respiratory failure: Code(s): J96.20 - Acute and chronic respiratory failure, unspecified whether with hypoxia or hypercapnia Status: Acute Assessment and Plan: Patient hypoxic and hypercapnic on admission. pH normal so some of this may be chronic. Influenza negative. Has chronic nocturnal hypoxia requiring O2 at night. Treated aggressively with steroids, nebs and abx. Clinically improving. Required O2 during the day at discharge. (2) COPD (chronic obstructive pulmonary disease): Qualifiers: COPD type: COPD with acute exacerbation Qualified Code(s): J44.1 - Chronic obstructive pulmonary disease with (acute) exacerbation Code(s): J44.9 - Chronic obstructive pulmonary disease, unspecified Status: Acute Assessment and Plan: Improving. CTA showing no PE but moderate to severe emphysema. Smoking cessation imperative and discussed multiple times. Treated with nebulizer treatments and Solu-Medrol. CTA noted and possibly infectious or postinfectious. Treated with doxycycline for acute bronchitis. Weaned to oral Prednisone. Qualified for home O2 during the day. (3) Elevated troponin: Code(s): R79.89 - Other specified abnormal findings of blood chemistry Status: Acute Assessment and Plan: Trop elevated to 0.65. EKG reviewed showing RBBB but no acute changes. Echo showing EF 50% and diastolic dysfunction. Cardiology consulted and felt Type II [place] from the respiratory failure. Further workup being considered as outpatient. (4) Essential (primary) hypertension: Code(s): I10 - Essential (primary) hypertension Status: Chronic Assessment and Plan: BP monitored closely. BP elevated at times. We continued lisinopril and metoprolol. Continue to monitor. (5) Mixed hyperlipidemia: Code(s): E78.2 - Mixed hyperlipidemia Status: Chronic Assessment and Plan: LFTs in the past have been normal. We continued home Lipitor. (6) Hypoxia: Code(s): R09.02 - Hypoxemia Status: Acute Assessment and Plan: Related to COPD. Has chronic nocturnal hypoxia requiring 2L NC. He may have LIANNE. CTA negative for PE. Treatment as above. (7) Iron deficiency anemia: Qualifiers: Iron deficiency anemia type: unspecified iron deficiency Qualified Code(s): D50.9 - Iron deficiency anemia, unspecified Code(s): D50.9 - Iron deficiency anemia, unspecified Status: Acute Assessment and Plan: Stable. Hgb 14 on admission and remained relatively stable. (8) Anxiety: Code(s): F41.9 - Anxiety disorder, unspecified Status: Acute Assessment and Plan: Patient has a hx of anxiety with panic attacks. Currently on scheduled Xanax and Lexapro. Mood remained stable. (9) WHITNEY (dyspnea on exertion): Code(s): R06.09 - Other forms of dyspnea Status: Acute Assessment and Plan: Related to above. (10) Tobacco abuse: Code(s): Z72.0 - Tobacco use Status: Acute Assessment and Plan: Patient educated about the benefits of smoking cessation. Even discussed the benefit of not smoking marijuana or any other agents using the lung as the portal of entry. He voices understanding of this. DS: Summary Hospital Course Reason for hospitalization: 64yo male with COPD here for COPD exacerbation. Please see H&P for details. Hospital Course: As above Time Spent with Patient Time attestation: Total time spent providing and/or coordinating discharge services:33 minutes Time spent: Greater than 30 minutes Exam Narrative: Exam Narrative: Gen - NARD sitting up in chair Chest -few basilar crackles o/w distant BS. no wheezing CV - RRR with distant S1-S2 Abd -soft. Obese. Nontend
== END 2019-05-03 13:30 | disposition home or self-care (01) | DRG 189 ==
LOC: ANHED 15:48 → ANHIMU 16:08 → ANH3MEDSUR 05-01 22:57
PROVIDERS: Nurse Practitioner; Admitting Provider Hospitalist; Emergency Provider Family Medicine; PCP Internal Medicine; Visit Provider Internal Medicine
DX: J96.21 Acute and chronic respiratory failure with hypoxia (principal); J43.9 Emphysema, unspecified; J96.22 Acute and chronic respiratory failure with hypercapnia; M19.90 Unspecified osteoarthritis, unspecified site; I25.10 Atherosclerotic heart disease of native coronary artery without angina pectoris; I10 Essential (primary) hypertension; K21.9 Gastro-esophageal reflux disease without esophagitis; E78.2 Mixed hyperlipidemia; Z87.19 Personal history of other diseases of the digestive system; E78.00 Pure hypercholesterolemia, unspecified; D50.9 Iron deficiency anemia, unspecified; F41.9 Anxiety disorder, unspecified; F41.0 Panic disorder [episodic paroxysmal anxiety]; Z90.49 Acquired absence of other specified parts of digestive tract; Z99.81 Dependence on supplemental oxygen; Z79.82 Long term (current) use of aspirin; I73.9 Peripheral vascular disease, unspecified
CPT/HCPCS: 36415; 36600; 71046; 71275; 80048; 82607; 82746; 82805; 83735; 83880; 84439; 84443; 84480; 84484; 85025; 85027; 85380; 87070; 87205; 87804; 93005; 94618; 94640; 94668; 96374; 96375; 96376; 97165; 99291; A9270; C8929; J1940; J2060; J2405; J2930; J7512; Q9957; Q9967

== ENCOUNTER 2019-07-17 11:30 | Outpatient (CLI) | payer MEDICARE, MEDICAID, SELFPAY ==
[2019-07-17 12:23] LABS: Creatinine Urine 158.6 mg/dL
[2019-07-17 12:28] LABS: MALB Creatinine Ratio 4.9 mg/g (0-30); Microalbumin Urine Random 7.8 mg/L (0-16.7)
[2019-07-17 12:37] LABS: Hemoglobin A1C 5.3 % (<5.7)
[2019-07-17 13:49] LABS: Alanine Aminotransferase 14 U/L (4-50); Albumin Level 4.4 g/dL (3.5-5.1); Alkaline Phosphatase 120 U/L (38-126); Aspartate Amino Transferase 24 U/L (17-59); Bilirubin,Total 0.4 mg/dL (0.2-1.3); Blood Urea Nitrogen 8 mg/dL (9-20); Calcium 9.1 mg/dL (8.4-10.2); Carbon Dioxide 27 mmol/L (22-30); Chloride 101 mmol/L (98-107); Cholesterol 173 mg/dL (0-200); Estimated Glomerular Filt Rate > 60; Glucose 133 mg/dL (75-110); HDL Direct 52 mg/dL; Potassium 4.1 mmol/L (3.4-5.0); Sodium 136 mmol/L (137-145); Triglycerides 111 mg/dL (<150)
[2019-07-17 14:00] LABS: LDL Cholesterol Direct 101 mg/dL
[2019-07-17 14:19] LABS: Prostate Specific Antigen 0.5 ng/mL (< OR = 4.0)
== END 2019-07-17 11:31 | disposition home or self-care (01) ==
PROVIDERS: PCP Internal Medicine; Visit Provider Internal Medicine
DX: Z12.5 Encounter for screening for malignant neoplasm of prostate (principal); I10 Essential (primary) hypertension; R74.8 Abnormal levels of other serum enzymes; E78.5 Hyperlipidemia, unspecified; E11.9 Type 2 diabetes mellitus without complications
CPT/HCPCS: 36415; 80053; 80061; 82043; 83036; 84153; G0103

== ENCOUNTER 2019-07-22 11:51 | Outpatient (CLI) | payer MEDICARE, MEDICAID, SELFPAY ==
[2019-07-23 13:19] LABS: Reference Lab Test Result NEGATIVE
== END 2019-07-22 11:52 | disposition home or self-care (01) ==
PROVIDERS: PCP Internal Medicine; Visit Provider Internal Medicine
DX: Z01.84 Encounter for antibody response examination (principal); J06.9 Acute upper respiratory infection, unspecified; R69 Illness, unspecified; Z20.828 Contact with and (suspected) exposure to other viral communicable diseases
CPT/HCPCS: 36415; 86769

== ENCOUNTER 2019-08-20 19:21 | Outpatient (CLI) | payer MEDICARE, MEDICAID, SELFPAY ==
--- NOTE | ~2019-08-20 | MR_ITS ---
EXAMINATION: MR lumbar spine wo con DATE: 08/20/2019 19:53 INDICATION: Lumbar spondylosis without myelopathy or radiculopathy. TECHNIQUE: Magnetic resonance imaging (MRI) of the lumbar spine was performed without intravenous con trast. Sequences included sagittal T2-weighted FSE, sagittal T2-weighted FS FSE, sagittal T1-weighted FSE, and axial T2-weighted FSE. COMPARISON: Lumbar spine MRI 03/03/2014 FINDINGS: There is 4 degrees levocurvature of lumbar spine. There are Schmorl's nodes at most levels. There is mild chronic anterior wedging of T11-L1 vertebral bodies. There is severely decreased disc height at L5-S1. The distal spinal cord signal intensity is normal. The conus medullaris is at L1-L2. The following disc levels are specifically discussed: L1-L2: The disc does not extend beyond the endplate margin. There is mild bilateral facet joint osteo arthritis. There is no neural foraminal stenosis. There is no central canal stenosis. L2-L3: There is a left foraminal protrusion. There is mild bilateral facet joint osteoarthritis. Ther e is mild left neural foraminal stenosis. There is no central canal stenosis. L3-L4: The disc is bulging. There is mild bilateral facet joint osteoarthritis. There is mild right a nd moderate left neural foraminal stenosis. There is mild central canal stenosis. L4-L5: The disc is mildly bulging. There is mild bilateral facet joint osteoarthritis. There is mild right and moderate left neural foraminal stenosis. There is mild central canal stenosis. L5-S1: The disc is bulging and has an annular fissure. There is mild bilateral facet joint osteoarthr itis. There is mild bilateral neural foraminal stenosis. There is mild central canal stenosis. IMPRESSION: 1. Severe lower lumbar spondylosis, stable from 03/03/2014. Reviewed, dictated and finalized at location E.
== END 2019-08-20 19:22 | disposition home or self-care (01) ==
PROVIDERS: PCP Internal Medicine; Visit Provider Nurse Practitioner Adult Health
DX: M47.816 Spondylosis without myelopathy or radiculopathy, lumbar region (principal)
CPT/HCPCS: 72148

== ENCOUNTER 2019-10-17 08:40 | Outpatient (CLI) | payer MEDICARE, MEDICAID, SELFPAY ==
--- NOTE | 2019-10-17 11:00 | NEURO_ITS ---
Patient Number: [id number] Impression: # Complains of severe pain and numbness in hands. # Bilateral Carpal Tunnel Syndrome, left more than right. # Bilateral ulnar neuropathy across the elbow. # Normal needle/EMG exam. Nerve Conduction Studies Anti Sensory Summary Table Stim Site NR Peak (ms) P-T Amp (?V) Site1 Site2 Delta-P (ms) Dist (cm) Eddie (m/s) Left Median Anti Sensory (2-3nd Digit) Wrist 4.3 27.8 Wrist 2-3nd Digit 4.3 14.0 33 Wrist 4.2 30.9 Wrist 2-3nd Digit 4.3 14.0 33 Right Median Anti Sensory (2-3nd Digit) Wrist 4.0 26.7 Wrist 2-3nd Digit 4.0 14.0 35 Wrist 3.7 28.8 Wrist 2-3nd Digit 4.0 14.0 35 Left Radial Anti Sensory (Base 1st Digit) Wrist 2.3 25.4 Wrist Base 1st Digit 2.3 0.0 Right Radial Anti Sensory (Base 1st Digit) Wrist 2.6 21.4 Wrist Base 1st Digit 2.6 0.0 Left Ulnar Anti Sensory (5th Digit) Wrist 2.9 28.8 Wrist 5th Digit 2.9 14.0 48 Right Ulnar Anti Sensory (5th Digit) Wrist 2.8 32.8 Wrist 5th Digit 2.8 14.0 50 Motor Summary Table Stim Site NR Onset (ms) O-P Amp (mV) Site1 Site2 Delta-0 (ms) Dist (cm) Eddie (m/s) Left Median Motor (Abd Poll Brev) Wrist 4.5 0.7 Elbow Wrist 5.5 31.0 56 Elbow 10.0 0.9 Right Median Motor (Abd Poll Brev) Wrist 4.1 2.2 Elbow Wrist 5.3 31.0 58 Elbow 9.4 1.1 Left Ulnar Motor (Abd Dig Minimi) Wrist 2.8 7.3 A Elbow Wrist 7.3 31.0 42 A Elbow 10.1 4.9 B Elbow Wrist 5.2 24.0 46 B Elbow 8.0 5.7 Right Ulnar Motor (Abd Dig Minimi) Wrist 2.5 5.2 A Elbow Wrist 6.7 32.0 48 A Elbow 9.2 4.1 B Elbow Wrist 4.9 24.0 49 B Elbow 7.4 4.8 F Wave Studies NR F-Lat (ms) L-R F-Lat (ms) Left Median (Mrkrs) (Abd Poll Brev) 31.89 0.05 Right Median (Mrkrs) (Abd Poll Brev) 31.84 0.05 Left Ulnar (Mrkrs) (Abd Dig Min) 33.93 0.65 Right Ulnar (Mrkrs) (Abd Dig Min) 33.28 0.65 EMG Side Muscle Nerve Root Ins Act Fibs Amp Dur Recrt Comment Right 1stDorInt Ulnar C8-T1 Nml Nml Nml Nml Nml Right Ext Indicis Radial (Post Int) C7-8 Nml Nml Nml Nml Nml Right Ext Digitorum Radial (Post Int) C7-8 Nml Nml Nml Nml Nml Right BrachioRad Radial C5-6 Nml Nml Nml Nml Nml Right PronatorTeres Median C6-7 Nml Nml Nml Nml Nml Right Abd Poll Brev Median C8-T1 Nml Nml Nml Nml Nml Left 1stDorInt Ulnar C8-T1 Nml Nml Nml Nml Nml Left Ext Indicis Radial (Post Int) C7-8 Nml Nml Nml Nml Nml Left Ext Digitorum Radial (Post Int) C7-8 Nml Nml Nml Nml Nml Left BrachioRad Radial C5-6 Nml Nml Nml Nml Nml Left PronatorTeres Median C6-7 Nml Nml Nml Nml Nml Left Abd Poll Brev Median C8-T1 Nml Nml Nml Nml Nml Left ABD Dig Min Ulnar C8-T1 Nml Nml Nml Nml Nml Right ABD Dig Min Ulnar C8-T1 Nml Nml Nml Nml Nml Right Anconeus Radial C7-8 Nml Nml Nml Nml Nml Right Abd Poll Long Radial (Post Int) C7-8 Nml Nml Nml Nml Nml Left Anconeus Radial C7-8 Nml Nml Nml Nml Nml Left Abd Poll Long Radial (Post Int) C7-8 Nml Nml Nml Nml Nml MTDD
== END 2019-10-17 08:41 | disposition home or self-care (01) ==
LOC: ANHNEURO 08:42
PROVIDERS: PCP Internal Medicine; Visit Provider Orthopaedic Surgery
DX: G56.03 Carpal tunnel syndrome, bilateral upper limbs (principal); G56.23 Lesion of ulnar nerve, bilateral upper limbs
CPT/HCPCS: 95886; 95911

== ENCOUNTER 2019-11-14 13:30 | Outpatient (CLI) | payer MEDICARE, MEDICAID, SELFPAY ==
--- NOTE | 2019-11-14 14:08 | ECG_ITS ---
Measurements Intervals Vera Rate: 76 P: 59 NV: 195 QRS: -79 QRSD: 104 T: 42 QT: 395 QTc: 445 Interpretive Statements SINUS RHYTHM LEFT AXIS DEVIATION INCOMPLETE RIGHT BUNDLE BRANCH BLOCK BORDERLINE R WAVE PROGRESSION, ANTERIOR LEADS INFERIOR INFARCT, AGE INDETERMINATE ST-T WAVE ABNORMALITY IN ANTERIOR LEADS- CONSIDER ISCHEMIA BASELINE WANDER- V3 ABNORMAL ECG Electronically Signed On 11-14-2019 16:28:21 CDT by Yonatan Kennedy D.O.
[2019-11-14 14:13] LABS: Anion Gap 5 mmol/L (8-16); Blood Urea Nitrogen 6 mg/dL (9-20); Calcium 9.2 mg/dL (8.4-10.2); Carbon Dioxide 28 mmol/L (22-30); Chloride 98 mmol/L (98-107); Estimated Glomerular Filt Rate > 60; Glucose 106 mg/dL (75-110); Potassium 4.7 mmol/L (3.4-5.0); Sodium 131 mmol/L (137-145)
== END 2019-11-14 13:31 | disposition home or self-care (01) ==
LOC: ANHLAB 13:33
PROVIDERS: PCP Internal Medicine; Visit Provider Orthopaedic Surgery
DX: Z01.818 Encounter for other preprocedural examination (principal); I45.10 Unspecified right bundle-branch block
CPT/HCPCS: 36415; 80048; 93005

== ENCOUNTER 2019-12-30 00:43 | Outpatient (CLI) | payer MEDICARE, MEDICAID, SELFPAY ==
[2019-12-30 17:41] LABS: SARS-CoV-2 RNA PCR Negative
== END 2019-12-30 00:44 | disposition home or self-care (01) ==
LOC: ANHCOVIDDT 00:43
PROVIDERS: PCP Internal Medicine; Visit Provider Orthopaedic Surgery
DX: Z01.812 Encounter for preprocedural laboratory examination (principal); Z20.828 Contact with and (suspected) exposure to other viral communicable diseases
CPT/HCPCS: 87635; C9803; U0003

== ENCOUNTER 2020-01-01 01:47 | Day surgery (SDC) | payer MEDICARE, MEDICAID, SELFPAY ==
[2019-12-19 13:55] VITALS: BMI 34.7
--- NOTE | 2019-12-27 14:21 | PM.IMHP ---
H&P: HPI History of Present Illness Date/Time: 12/27/19 14:21 Chief complaint: Left Rotator Cuff Tear Narrative: Dez Platt is a 64 year old male Who presents with chronic ongoing history of left shoulder pain and pain with overhead type motion that radiates into his upper arm. He notes inability to do anything heavy repetitive with the shoulder. He has pain with overhead type motion or trying to reach out across his body, his pain is worse with activity somewhat relieved by rest although he has trouble sleeping at night as well. Despite conservative measures including cortisone therapy and anti-inflammatories as symptoms continue. He has painful giving way if he tries to do anything heavy. An MRI scan was performed that shows a partial-thickness articular surface tear of the supraspinatus tendon insertion. There is no evidence of a full-thickness tear seen on the MRI according to the radiologist. The bicipital labrum is intact as well as the long head. There is AC joint hypertrophy [id number] nature with subacromial space narrowing due to a prominent acromion. There is a small glenohumeral joint effusion. At this point the patient is where the above findings he has failed conservative measures and discuss further treatment options in detail with Dr. Swann he did elect to proceed with surgical intervention. Review of Systems Review of Systems: All systems reviewed & are unremarkable except as noted in HPI and below PMFSH Past Medical History Medical History Anemia Arthritis CAD (coronary atherosclerotic disease) Diverticulitis Esophageal ulcer Essential (primary) hypertension GERD (gastroesophageal reflux disease) GI bleed Hypercholesterolemia Hypertension Liver disease Mixed hyperlipidemia Rectal polyp TIA (transient ischemic attack) 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 now sees okay Surgical History Surgical History H/O inguinal hernia repair H/O rectal polypectomy H/O vasectomy History of appendectomy History of colon resection Hx of tonsillectomy Family History Family History Father Family history of Alzheimer's disease Patient's father is , Onset Age: 88 Heart disease Sibling Family history of Parkinson's disease Cerebrovascular accident Mother Family history of heart disease in male family member before age 55 Rheumatoid arthritis Family history of Alzheimer's disease Other Hypertension Social History Social History Social History: Patient stated over the last week he dropped down to about half a pack a cigarettes or last maybe 1/3 of a pack. He lives with his dog. The patient may drink 6-10 stag beers in a week's time. The patient tells me that he does have medical marijuana 80 smokes though oils. Smoking packs per day: 0.75 Smoking cigarettes per day: 15.0 Years smoked: 50 Smoking pack-years: 37.50 Smoking status: Current every day smoker Tobacco type: cigarettes Alcohol intake: current Drinks per week: 15 Substance use: current Substance use type: marijuana Other substance usage details: smokes THC oils Last use: DAILY Additional occupation/education comments: Construction Gender identity (if verbalized by the patient): Male Spiritual care concerns: No Agree to blood products: Yes Meds Home Medications and Allergies Home Medications Medication Instructions Recorded Confirmed Type metoprolol succinate 50 mg capsule 50 mg PO QPM 01/30/19 12/26/19 History sprinkle, ext. release 24 hr aspirin 81 mg tablet,delayed 81 mg PO DAILY 01/31/19 12/26/19 History release atorvastatin 10 mg tablet 10 mg PO DAILY #90 tablet 07/17/19 12/19/19 Rx albuterol sulfate 2.5 mg INHALATION Q4-6H PRN #90 ml 07/25/19 12/26/19 Rx flutic
--- NOTE | 2019-12-31 13:12 | WPDANESEPPF ---
Anes - Initial Pre Proc Eval Procedure: Operation Date: 01/01/20 07:30 Proposed Procedures p Left Shoulder Arthroscopy, Acromioplasty, Open Distal Clavicle Excision, Rotator Cuff Repair, Proceed As Indicated - Wallace Swann MD Date/Time: 12/31/19 13:12 Surgeon: Wallace Swann MD Pre Op Diagnosis: Left Rotator Cuff Tear Patient Data Age: 64 Gender: M Height: 1.75 m Weight: 106.59 kg Allergies Allergy/AdvReac Type Severity Reaction Status Date / Time adhesive tape Allergy Mild BLISTERS Verified 01/01/20 06:33 ciprofloxacin Allergy Unknown Rash Verified 01/01/20 06:33 venom-honey bee Allergy Unknown ANAPHYLAXIS Verified 01/01/20 06:33 Home Medications Medication Instructions Recorded Confirmed Type metoprolol succinate 50 mg capsule 50 mg PO QPM 01/30/19 01/01/20 History sprinkle, ext. release 24 hr aspirin 81 mg tablet,delayed 81 mg PO DAILY 01/31/19 01/01/20 History release atorvastatin 10 mg tablet 10 mg PO DAILY #90 tablet 07/17/19 01/01/20 Rx albuterol sulfate 2.5 mg INHALATION Q4-6H PRN #90 ml 07/25/19 01/01/20 Rx fluticasone fur. 100 mcg-umeclid 1 inhalation INHALATION DAILY #60 08/01/19 01/01/20 Rx 62.5 mcg-vilant 25 mcg each inhalat.powder escitalopram oxalate 10 mg tablet 10 mg PO DAILY #90 tablet 08/06/19 01/01/20 Rx albuterol sulfate 90 mcg/actuation 2 inhalation INHALATION Q4-6H PRN 08/14/19 01/01/20 Rx aerosol inhaler #8.5 gm alprazolam 0.25 mg tablet 0.25 mg PO BID #60 tablet 11/04/19 01/01/20 Rx hydrocodone 5 mg-acetaminophen 325 1 tablet PO Q8H PRN #90 tablet 12/02/19 01/01/20 Rx mg tablet clopidogrel 75 mg PO DAILY 12/19/19 01/01/20 History lisinopril 40 mg PO BID 12/19/19 01/01/20 History ECG: Date of Service: 11/14/19 Procedure(s): CA 12 lead EKG Accession Number(s): [id number] cc: ~ Measurements Intervals [place] Rate: 76 P: 59 SC: 195 QRS: -79 QRSD: 104 T: 42 QT: 395 QTc: 445 Interpretive Statements SINUS RHYTHM LEFT AXIS DEVIATION INCOMPLETE RIGHT BUNDLE BRANCH BLOCK BORDERLINE R WAVE PROGRESSION, ANTERIOR LEADS INFERIOR INFARCT, AGE INDETERMINATE ST-T WAVE ABNORMALITY IN ANTERIOR LEADS- CONSIDER ISCHEMIA BASELINE WANDER- V3 ABNORMAL ECG Electronically Signed On 11-14-2019 16:28:21 CDT by Yonatan Kennedy D.O. Dictated By: Yonatan Kennedy DO 11/14/19 1415 Other Studies: negative stress test 2019 Patient hx anesthesia problems: none Family hx anesthesia problems: none PMFSH Past Medical History Medical History (Updated 12/31/19 @ 13:15 by Edwardo Renteria MD) Abnormal EKG Acute exacerbation of chronic obstructive pulmonary disease (COPD) Anemia Antiplatelet or antithrombotic long-term use Anxiety Arthritis Bilateral carotid bruits Body mass index (BMI) 35.0-35.9, adult (10/15/18) CAD (coronary atherosclerotic disease) Carotid artery disease Chronic low back pain Chronic pain syndrome Cigarette nicotine dependence without complication COPD (chronic obstructive pulmonary disease) Diverticulitis WHITNEY (dyspnea on exertion) Elevated liver enzymes Emphysema of lung Esophageal ulcer Essential (primary) hypertension GERD (gastroesophageal reflux disease) GI bleed Hypercholesterolemia Hypertension Liver disease Mixed hyperlipidemia Primary biliary cholangitis Rectal polyp Rotator cuff tear On the left without repair TIA (transient ischemic attack) 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 now sees okay Tobacco abuse Ulcer of esophagus without bleeding Surgical History Surgical History (Updated 12/31/19 @ 13:15 by Edwardo Renteira MD) H/O inguinal hernia repair H/O rectal polypectomy H/O vasectomy History of appendectomy History of carpal tunne
[2020-01-01] VITALS (9 sets, daily range): BP systolic 103–131; BP diastolic 65–88; PULSE 74–97; RESP 12–20; TEMP 36.4–36.6; O2SAT 90–98; BMI 35.2
[2020-01-01] MEDS: LACTATED RINGERS 1,000 ML 30 ML IV CONT (06:48)
--- NOTE | 2020-01-01 06:54 | SUR.PREOP ---
0615; PT STATES LAST DOSE OF ASA AND PLAVIX WAS YESTERDAY, 12/31/2019. PT STATES I CALLED BOTH MY PRIMARY DOCTOR AND ANDERSONS OFFICE AND THEY COULDN'T GET COORDINATED PT DID NOT TAKE TODAY.
[2020-01-01] MEDS: KETOROLAC 15 MG/ML VIAL (*BKC) IV PUSH (07:00)
--- NOTE | 2020-01-01 07:01 | SUR.PREOP ---
0655; NOTIFIED DR WU THAT PT DID NOT STOP PLAVIX OR ASA. PT TOOK YESTERDAY, 12/31/2019. DID NOT TAKE TODAY. OK TO PROCEED.
--- NOTE | 2020-01-01 07:02 | SUR.PREOP ---
LATE NOTE, 619; CALLED DR MCNAIR, NOTIFIED THAT PT DID NOT STOP ASA OR PLAVIX. LAST DOSE YESTERDAY, 12/31/2019. MAY PROCEED WITH SURGERY.
--- NOTE | 2020-01-01 07:03 | SUR.PREOP ---
0700; DR WU NOTIFIED OF PT DYSPNEA ON EXERTION AND ROOM AIR SAO2 94%. PT DENIES SOB
--- NOTE | 2020-01-01 07:10 | WPDHPUPDATE1 ---
History and Physical Update Update Date/Time: 01/01/20 07:10 History and Physical has been reviewed, including an updated exam of the patient. There are NO changes in the patient's condition. Risks, benefits, and alternatives have been discussed and questions answered. Patient agrees to proceed with procedure.
--- NOTE | 2020-01-01 07:24 | SUR.PREOP ---
0720; ASKED PT TO GO TO BATHROOM AND ATTEMPT TO URINATE. PT REFUSED. STATES HE URINATED 3 TIMES OVER NIGHT.
[2020-01-01] MEDS: ceFAZolin 2 GM/D5W 50 ML 2 GM/50 ML BAG IVPB (07:27)
--- NOTE | 2020-01-01 07:28 | SUR.PREOP ---
PT TOOK HOME ALBUTEROL WITH HIM TO OR. PT OVERNIGHT CASHIER IT
[2020-01-01] MEDS: LIDO 1%/EPINEPHRINE 1:100,000 20 ML VIAL INFILTRATE (08:02)
--- NOTE | 2020-01-01 08:31 | P.OP_ITS ---
Procedure Note - Detailed Date of procedure: 01/01/20 Pre-op diagnosis: Left Rotator Cuff Tear Post-op diagnosis: same Anesthesia: GETA Surgeon: Wallace Swann MD Patient brought to operating room 7. A general anesthetic was administered and placed on the operating table in the beach chair position a standard posterolateral portal was used and diagnostic arthroscopy performed the biceps was frayed was gently debrided and the remainder of the tendon 97% looked intact of the rotator cuff showed some fraying and then went to the subacromial space and intense bursa was found this is debrided acromioplasty begun with shaver and distal clavicle noted to be degenerative. A longitudinal incision made dissection carried down the fascia AC joint found split debrided repair distal clavicle excision performed remaining removing about 3 millimeters of distal clavicle deltoid was then split from the tip of the acromion and dissection carried down through subacromial space and the remainder of the bursa gently debrided the acromioplasty gently wrapped no fur ther impingement was noted I could put my finger between the rotator cuff acromion without difficulty with full motion the tendon was noted to be thinned in the supraspinatus area of the suspected been repaired with 2. Ethibond suture the deltoid was repaired to itself the acromion and the trapezius with 2. Ethibond suture at this point the wound was closed 2 Vicryl channing sterile dressing applied patient tolerated procedure well thanks [employer]: Jorgito Patricia Estimated blood loss (mL): 50 Drains: No Packing: No Pathology: none sent Complications: No immediate complications Condition: stable Disposition: PACU
== END 2020-01-01 10:50 | disposition home or self-care (01) ==
PROVIDERS: PCP Internal Medicine; Visit Provider Orthopaedic Surgery
PROC: (CPT 29805; principal; 2020-01-01 07:30)
DX: M75.102 Unspecified rotator cuff tear or rupture of left shoulder, not specified as traumatic (principal); I10 Essential (primary) hypertension; I25.10 Atherosclerotic heart disease of native coronary artery without angina pectoris; E78.2 Mixed hyperlipidemia; Z86.73 Personal history of transient ischemic attack (TIA), and cerebral infarction without residual deficits; K21.9 Gastro-esophageal reflux disease without esophagitis; J44.9 Chronic obstructive pulmonary disease, unspecified; G89.4 Chronic pain syndrome; D64.9 Anemia, unspecified; F17.210 Nicotine dependence, cigarettes, uncomplicated; F12.90 Cannabis use, unspecified, uncomplicated; E66.9 Obesity, unspecified; Z68.35 Body mass index [BMI] 35.0-35.9, adult; Z90.49 Acquired absence of other specified parts of digestive tract; Z79.02 Long term (current) use of antithrombotics/antiplatelets; Z79.82 Long term (current) use of aspirin
CPT/HCPCS: 23420; 23120; A4565; C9290; J0690; J1100; J1170; J1885; J2250; J2370; J2405; J2704; J2710; J3010; J7120

== ENCOUNTER → 2020-05-05 07:03 | Outpatient (CLI) | payer MEDICARE, MEDICAID, SELFPAY ==
[2020-05-05 20:35] LABS: SARS-CoV-2 RNA PCR Negative
== END ==
PROVIDERS: PCP Internal Medicine; Visit Provider Internal Medicine
DX: Z20.822 Contact with and (suspected) exposure to COVID-19 (principal); R68.89 Other general symptoms and signs
CPT/HCPCS: C9803; U0003; U0005

== ENCOUNTER 2020-05-11 10:08 | Outpatient (CLI) | payer MEDICARE, MEDICAID, SELFPAY | END 2020-05-11 10:09 | disposition home or self-care (01) | LOC: ANHCOVIDVC 10:09 | PROVIDERS: PCP Internal Medicine | DX: Z23 Encounter for immunization (principal) | CPT/HCPCS: 0001A; 91300 ==

== ENCOUNTER 2020-06-01 09:58 | Outpatient (CLI) | payer MEDICARE, MEDICAID, SELFPAY | END 2020-06-01 09:59 | disposition home or self-care (01) | LOC: ANHCOVIDVC 09:59 | PROVIDERS: PCP Internal Medicine | DX: Z23 Encounter for immunization (principal) | CPT/HCPCS: 0002A; 91300 ==

== ENCOUNTER 2020-07-09 13:44 | Outpatient (CLI) | payer MEDICARE, MEDICAID, SELFPAY ==
[2020-07-09 14:27] LABS: Alanine Aminotransferase 27 U/L (4-50); Albumin Level 4.4 g/dL (3.5-5.1); Alkaline Phosphatase 126 U/L (38-126); Anion Gap 6 mmol/L (8-16); Aspartate Amino Transferase 36 U/L (17-59); Bilirubin,Total 0.2 mg/dL (0.2-1.3); Blood Urea Nitrogen 14 mg/dL (9-20); Calcium 9.1 mg/dL (8.4-10.2); Carbon Dioxide 27 mmol/L (22-30); Chloride 92 mmol/L (98-107); Cholesterol 141 mg/dL (0-200); Estimated Glomerular Filt Rate > 60; Glucose 106 mg/dL (75-110); HDL Direct 59 mg/dL; Sodium 125 mmol/L (137-145); Triglycerides 76 mg/dL (<150)
[2020-07-09 14:39] LABS: LDL Cholesterol Direct 70 mg/dL
[2020-07-09 14:56] LABS: Prostate Specific Antigen 0.4 ng/mL (< OR = 4.0)
[2020-07-09 15:24] LABS: Iron 26 ug/dL (49-181)
[2020-07-09 15:33] LABS: Percent Iron Saturation 5 % (20-50)
[2020-07-09 21:50] LABS: Hemoglobin A1C 5.4 % (<5.7)
== END 2020-07-09 13:45 | disposition home or self-care (01) ==
LOC: ANHLAB 13:50
PROVIDERS: PCP Internal Medicine; Visit Provider Internal Medicine
DX: R74.8 Abnormal levels of other serum enzymes (principal); I10 Essential (primary) hypertension; Z12.5 Encounter for screening for malignant neoplasm of prostate; D50.9 Iron deficiency anemia, unspecified; E78.5 Hyperlipidemia, unspecified; R73.02 Impaired glucose tolerance (oral)
CPT/HCPCS: 36415; 80053; 80061; 83036; 83540; 83550; 84153; G0103

== ENCOUNTER 2020-07-20 11:05 | Emergency (ER) | payer MEDICARE, MEDICAID, SELFPAY ==
--- NOTE | ~2020-07-20 | XR_ITS ---
EXAMINATION: XR ankle RT min 3V DATE: 07/20/2020 11:33 INDICATION: Right ankle pain. Injury. TECHNIQUE: 4 views of right ankle were obtained. COMPARISON: None. FINDINGS: There is a transverse fracture of distal fibula 6 mm proximal to the level of the tibial pl afond. The distal fracture fragment demonstrates 2 mm medial and posterior displacement. There is a f racture of posterior malleolus with 2 mm step-off at the articular surface. There is a nondisplaced o blique fracture of medial malleolus. There is a small osteochondral lesion of lateral talar dome. The re is mild osteoarthritis of talonavicular joint. There is an enthesophyte at plantar aspect of calca abad tuberosity. Ankle soft tissue swelling is noted. IMPRESSION: 1. Trimalleolar ankle fracture. 2. Polyarticular osteoarthritis. Reviewed, dictated and finalized at location B.
--- NOTE | 2020-07-20 11:10 | ED.LOWEXIN ---
HPI - Extremity Injury (Lower) General Chief Complaint: Extremity Injury, Lower Stated Complaint: right ankle pain Time Seen by Provider: 07/20/20 11:11 Source: patient and RN notes reviewed Mode of arrival: ambulatory Limitations: no limitations History of Present Illness HPI Narrative: 65-year-old male presents to the [facility] with complaint of right ankle pain. Patient reports that he rolled his ankle 6 days ago. Has been icing it and heating it and soaking in Epson salt with no relief. has been unable to walk for 6 days. Positive pedal pulse. Sensation intact in all 5 toes. Decreased range of motion secondary to pain and swelling. Swelling noted to the lateral and medial aspect of the ankle. Related Data Home Medications Medication Instructions Recorded Confirmed aspirin 81 mg tablet,delayed 81 mg PO DAILY 01/31/19 07/20/20 release chinbiea-psb-ufqtl acid 0.4 1 tablet PO DAILY 07/10/20 07/20/20 mg-lycopene 300 mcg-lutein 250 mcg tablet Allergies Allergy/AdvReac Type Severity Reaction Status Date / Time adhesive tape Allergy Mild BLISTERS Verified 07/20/20 11:11 ciprofloxacin Allergy Unknown Rash Verified 07/20/20 11:11 venom-honey bee Allergy Unknown ANAPHYLAXIS Verified 07/20/20 11:11 Review of Systems Review of Systems: All systems reviewed & are unremarkable except as noted in HPI and below Constitutional: Constitutional: Reports no additional constitutional complaints Cardiovascular: Cardiovascular: Reports no additional cardiovascular complaints and Denies chest pain Respiratory: Respiratory: Reports no additional respiratory complaints, Denies cough, Denies dyspnea and Denies wheezing Gastrointestinal: Gastrointestinal: Reports no additional gastrointestinal complaints, Denies abdominal pain, Denies nausea and Denies vomiting Musculoskeletal: Musculoskeletal: Reports as per HPI, Reports arthralgias (Right ankle) and Reports joint swelling (Right ankle) Integumentary/Breasts: Skin/Breast: Reports system reviewed and no additional complaints, except as docu and Denies rash Neurologic: Reports system reviewed and no additional complaints, except as documented PMF Past Medical History Medical History Abnormal EKG Acute exacerbation of chronic obstructive pulmonary disease (COPD) Anemia Antiplatelet or antithrombotic long-term use Anxiety Arthritis Bilateral carotid bruits Body mass index (BMI) 35.0-35.9, adult (10/15/18) CAD (coronary atherosclerotic disease) Carotid artery disease Chronic low back pain Chronic pain syndrome Cigarette nicotine dependence without complication COPD (chronic obstructive pulmonary disease) Diverticulitis WHITNEY (dyspnea on exertion) Elevated liver enzymes Emphysema of lung Esophageal ulcer Essential (primary) hypertension GERD (gastroesophageal reflux disease) GI bleed Hypercholesterolemia Hypertension Liver disease Mixed hyperlipidemia Primary biliary cholangitis Rectal polyp Rotator cuff tear On the left without repair TIA (transient ischemic attack) 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 now sees okay Tobacco abuse Ulcer of esophagus without bleeding Surgical History Surgical History H/O inguinal hernia repair H/O rectal polypectomy H/O vasectomy History of appendectomy History of carpal tunnel surgery of left wrist History of colon resection Hx of tonsillectomy Family History Family History Father Family history of Alzheimer's disease Patient's father is , Onset Age: 88 Heart disease Sibling Family history of Parkinson's disease Cerebrovascular accident Mother Family history of heart disease in male family member before age 55 Rheumatoid arthritis Family history of Alzheimer's disease Other Hypertension Social History Social History (Reviewed 07/20/20 @ 16:51 by
[2020-07-20 11:20] VITALS: BP 105/82; PULSE 110; RESP 16; TEMP 36.4; O2SAT 95
== END 2020-07-20 12:21 | disposition home or self-care (01) ==
PROVIDERS: Emergency Provider Nurse Practitioner
DX: S82.851A Displaced trimalleolar fracture of right lower leg, initial encounter for closed fracture (principal); X50.9XXA Other and unspecified overexertion or strenuous movements or postures, initial encounter; F17.210 Nicotine dependence, cigarettes, uncomplicated; Z98.52 Vasectomy status; J44.9 Chronic obstructive pulmonary disease, unspecified; F41.9 Anxiety disorder, unspecified; M19.90 Unspecified osteoarthritis, unspecified site; I25.10 Atherosclerotic heart disease of native coronary artery without angina pectoris; I10 Essential (primary) hypertension; K21.9 Gastro-esophageal reflux disease without esophagitis; E78.00 Pure hypercholesterolemia, unspecified; E78.2 Mixed hyperlipidemia; Z86.73 Personal history of transient ischemic attack (TIA), and cerebral infarction without residual deficits; Z79.82 Long term (current) use of aspirin
CPT/HCPCS: 29515; 73610; 99214; G0463

== ENCOUNTER 2020-08-05 02:17 | Day surgery (SDC) | payer MEDICARE, MEDICAID, SELFPAY ==
[2020-08-04 14:44] VITALS: BMI 33.9
--- NOTE | 2020-08-04 16:08 | PM.IMHP ---
H&P: HPI History of Present Illness Date/Time: 08/04/20 16:08 The patient is a 65-year-old male who suffered an injury to his right ankle about 2 weeks ago. Patient slipped and fell suffered an injury where he had a minimally displaced fracture of the posterior and medial malleolus of the right ankle. The patient discussed treatment options in detail with Dr. Swann he elected to proceed with conservative measures and was placed in a short leg cast. However the patient has a hard time getting around he admits to putting weight on it. Followup x-rays the next week and the week after showed progression of displacement particularly of the posterior malleolus with progression of an off set of the weight-bearing surface of the distal tibia. He also appears have a non displaced fracture the lateral malleolus but the main concern is the posterior malleolus and weight-bearing surface. At this point Dr. Swann has recommended surgical intervention the patient admits that he has been noncompliant with nonweightbearing, he also knows that he has some increased risk of postoperative complications due to his problems with circulation in the lower extremities. The skin is otherwise intact at this time who does have some pedal edema and venous stasis changes both lower extremities. The patient has discussed risks benefits limitations and alternatives to surgery in great detail with Dr. Swann he would now like to proceed with open reduction internal fixation of the medial and posterior malleoli of right ankle. Chief Complaint: right ankle pain due to trimalleolar fracture Review of Systems Review of Systems: All systems reviewed & are unremarkable except as noted in HPI and below PMFSH Past Medical History Medical History Abnormal EKG Acute exacerbation of chronic obstructive pulmonary disease (COPD) Anemia Antiplatelet or antithrombotic long-term use Anxiety Arthritis Bilateral carotid bruits Body mass index (BMI) 35.0-35.9, adult (10/15/18) CAD (coronary atherosclerotic disease) Carotid artery disease Chronic low back pain Chronic pain syndrome Cigarette nicotine dependence without complication COPD (chronic obstructive pulmonary disease) Diverticulitis WHITNEY (dyspnea on exertion) Elevated liver enzymes Emphysema of lung Esophageal ulcer Essential (primary) hypertension GERD (gastroesophageal reflux disease) GI bleed Hypercholesterolemia Hypertension Liver disease Mixed hyperlipidemia Primary biliary cholangitis Rectal polyp Rotator cuff tear On the left without repair TIA (transient ischemic attack) 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 now sees okay Tobacco abuse Ulcer of esophagus without bleeding Surgical History Surgical History H/O inguinal hernia repair H/O rectal polypectomy H/O vasectomy History of appendectomy History of carpal tunnel surgery of left wrist History of colon resection Hx of tonsillectomy Family History Family History Father Family history of Alzheimer's disease Patient's father is , Onset Age: 88 Heart disease Sibling Family history of Parkinson's disease Cerebrovascular accident Mother Family history of heart disease in male family member before age 55 Rheumatoid arthritis Family history of Alzheimer's disease Other Hypertension Social History Social History Social History: Patient stated over the last week he dropped down to about half a pack a cigarettes or last maybe 1/3 of a pack. He lives with his dog. The patient may drink 6-10 stag beers in a week's time. The patient tells me that he does have medical marijuana 80 smokes though oils. Smoking packs per day: 0.75 Smoking cigarettes per day: 15.0 Years smoked: 50 Smoking pack-years: 37.50 Smoking status: Curr
[2020-08-05] VITALS (23 sets, daily range): BP systolic 107–153; BP diastolic 69–99; PULSE 79–105; RESP 12–20; TEMP 35.7–36.3; O2SAT 68–100
--- NOTE | ~2020-08-05 | XR_ITS ---
EXAMINATION: XR surgery orthopedic DATE: 08/05/2020 09:42 INDICATION: ORIF right ankle fracture TECHNIQUE: 2 fluoroscopic spot images of the right ankle were obtained during procedure performed by Dr. Swann. Radiologist was not present for the imaging or procedure. The amount of fluoroscopy coy e used during this procedure was 1.3 minutes. COMPARISON: 07/20/2020 FINDINGS: Interval reduction to essentially anatomic alignment and internal fixation of the distal tibial fract ures with cannulated lag screw spanning the medial malleolar fracture and a pair of cannulated lag sc rews extending from anterior to posterior across the central aspect of the tibial plafond. Negligible step-off at the articular surface of the posterior malleolar fracture. No internal fixation of the t ransverse fracture at the base of the lateral malleolus with no significant change in one cortical wi dth medial displacement. Joint spaces are normal. Tiny calcific density along the dorsal neck of the talus which could represent either a flake-like capsular avulsion fracture fragment or loose fragment within the anterior recess of the joint space. IMPRESSION: 1. Near-anatomic alignment post reduction and internal fixation of the medial and posterior malleolar fractures and unchanged minimal displacement of an unfixed lateral malleolar fracture. Reviewed, dictated and finalized at location A. IMPRESSION: 1. Near-anatomic alignment post reduction and internal fixation of the medial a nd posterior malleolar fractures and unchanged minimal displacement of an unfix ed lateral malleolar fracture.
--- NOTE | 2020-08-05 07:13 | WPDHPUPDATE1 ---
History and Physical Update Update Date/Time: 08/05/20 07:13 History and Physical has been reviewed, including an updated exam of the patient. There are NO changes in the patient's condition. Risks, benefits, and alternatives have been discussed and questions answered. Patient agrees to proceed with procedure.
--- NOTE | 2020-08-05 07:19 | WPDANESEPPF ---
Anes - Initial Pre Proc Eval Procedure: Operation Date: 08/05/20 08:30 Proposed Procedures p Open Reduction Internal Fixation Right Ankle - Wallace Swann MD Date/Time: 08/05/20 07:19 Surgeon: Wallace Swann MD Pre Op Diagnosis: Right Ankle Fracture Patient Data Age: 65 Gender: M Height: 1.75 m Weight: 104.3 kg Allergies Allergy/AdvReac Type Severity Reaction Status Date / Time adhesive tape Allergy Mild BLISTERS Verified 08/05/20 07:13 ciprofloxacin Allergy Unknown Rash Verified 08/05/20 07:13 venom-honey bee Allergy Unknown ANAPHYLAXIS Verified 08/05/20 07:13 Home Medications Medication Instructions Recorded Confirmed Type aspirin 81 mg tablet,delayed 81 mg PO DAILY 01/31/19 08/04/20 History release clopidogrel 75 mg tablet 75 mg PO DAILY #90 tablet 02/11/20 08/04/20 Rx fluticasone fur. 100 mcg-umeclid 1 inh INHALATION DAILY 90 Days 02/26/20 08/04/20 Rx 62.5 mcg-vilant 25 mcg #180 ea inhalat.powder albuterol sulfate 90 mcg/actuation See Rx Instructions .ROUTE 04/01/20 08/04/20 Rx aerosol inhaler .COMPLEX #25.5 g atorvastatin 10 mg tablet 10 mg PO DAILY #90 tablet 04/03/20 08/04/20 Rx albuterol sulfate See Rx Instructions .ROUTE 06/01/20 08/04/20 Rx .COMPLEX #120 vial metoprolol succinate 50 mg See Rx Instructions .ROUTE 07/02/20 08/04/20 Rx tablet,extended release 24 hr .COMPLEX #90 tablet lplszasu-hew-blmzk acid 0.4 1 tablet PO DAILY 07/10/20 08/04/20 History mg-lycopene 300 mcg-lutein 250 mcg tablet escitalopram oxalate 10 mg tablet 10 mg PO DAILY #90 tablet 07/27/20 08/04/20 Rx alprazolam 0.25 mg tablet 0.25 mg PO TID PRN #90 tablet 07/29/20 08/04/20 Rx lisinopril 40 mg tablet 40 mg PO BID #180 tablet 07/29/20 08/04/20 Rx hydrocodone 5 mg-acetaminophen 325 1 tablet PO Q8H PRN #90 tablet 07/30/20 08/04/20 Rx mg tablet Patient hx anesthesia problems: none Family hx anesthesia problems: none [facility] Past Medical History Medical History Abnormal EKG Acute exacerbation of chronic obstructive pulmonary disease (COPD) Anemia Antiplatelet or antithrombotic long-term use Anxiety Arthritis Bilateral carotid bruits Body mass index (BMI) 35.0-35.9, adult (10/15/18) CAD (coronary atherosclerotic disease) Carotid artery disease Chronic low back pain Chronic pain syndrome Cigarette nicotine dependence without complication COPD (chronic obstructive pulmonary disease) Diverticulitis WHITNEY (dyspnea on exertion) Elevated liver enzymes Emphysema of lung Esophageal ulcer Essential (primary) hypertension GERD (gastroesophageal reflux disease) GI bleed Hypercholesterolemia Hypertension Liver disease Mixed hyperlipidemia Primary biliary cholangitis Rectal polyp Rotator cuff tear On the left without repair TIA (transient ischemic attack) 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 now sees criss Tobacco abuse Ulcer of esophagus without bleeding Surgical History Surgical History H/O inguinal hernia repair H/O rectal polypectomy H/O vasectomy History of appendectomy History of carpal tunnel surgery of left wrist History of colon resection Hx of tonsillectomy Family History Family History Father Family history of Alzheimer's disease Patient's father is , Onset Age: 88 Heart disease Sibling Family history of Parkinson's disease Cerebrovascular accident Mother Family history of heart disease in male family member before age 55 Rheumatoid arthritis Family history of Alzheimer's disease Other Hypertension Social History Social History Social History: Patient stated over the last week he dropped down to about half a pack a cigarettes or last maybe 1/3 of a pack. He lives with his dog. The patient may drink 6-10 stag beers in a week's time. The patient tells
[2020-08-05] MEDS: LACTATED RINGERS 1,000 ML 30 ML IV CONT ×3 (07:40→12:18)
[2020-08-05] MEDS: ACETAMINOPHEN 500 MG TABLET 1000 MG PO (07:50)
[2020-08-05] MEDS: ceFAZolin 2 GM/D5W 50 ML 2 GM/50 ML BAG IVPB (08:33)
--- NOTE | 2020-08-05 09:27 | P.OP_ITS ---
Procedure Note - Detailed Date of procedure: 08/05/20 Pre-op diagnosis: Right Ankle Fracture trimalleolar Surgeon: Wallace Swann MD Quality Control Lab Technician Jorgito Know Diagnosis trimalleolar ankle fracture right preop and postop the same procedure open reduction internal fixation trimalleolar fracture patient brought to the operating room a general anesthetic was administered placed on the operating table sterilely prepped and draped in the usual manner. Longitudinal incision made just in front of the ankle and a posterolateral incision made as well dissection bluntly carried down protecting the neurovascular bundles and the dissection carried down to the bone tenaculum was then used to reduce the fracture and 2 cannulated screws drilled through it achieving fixation in both cortices this gave excellent alignment and fixation of the medial most of the posterior malleolar fracture and proceeded medially longitudinal incision made medial malleolus found tip was then a cannulated screw was placed up their of 40 millimeters in length the screws across the ankle were 44 at this point he had near anatomic alignment of the fracture the ankle was stable wounds closed with Petterchak Vicryl and channing cast applied thank you cautioned him before surgery therapy and sessile walking is going to displace any needed cautioned him after surgery the same things while admitted and for his medical conditions hopefully be able to get home health discussed
[2020-08-05] MEDS: fentaNYL CITRATE INJ (*CRX) 100 MCG/2 ML VIAL 25 MCG IV PUSH ×9 (10:10→10:50)
[2020-08-05] MEDS: HYDROmorphone HCL INJ (*CRX) 1 MG/ML SYR 0.25 MG IV PUSH ×6 (11:30→12:25)
--- NOTE | 2020-08-05 15:05 | ADMGEN ---
This patient, Dez Platt, was admitted to Medical Room 241-01. Patient/family oriented to hospital policies and general routines including ID bracelet, bed and alarms, visiting hours, pain management, procedures, bathroom and other care routines, personal items, smoking policy, room service/diet, and visiting hours. Information on how to activate the Rapid Response Team has been discussed. Patient/Family are encouraged to report perceived risks to care and to ask questions if they do not understand what they are told or what they should do.
[2020-08-05] MEDS: HYDROcodone/acetaminophen (*CRX) 5-325 MG TABLET 1 TAB PO (15:26)
[2020-08-05] MEDS: lisinopriL 20 MG TABLET 40 MG PO (17:12)
[2020-08-05] MEDS: ESCITALOPRAM OXALATE 10 MG TABLET PO (17:12)
[2020-08-05] MEDS: ASPIRIN 81 MG ENTERIC TABLET PO (17:12)
[2020-08-05] MEDS: HYDROcodone/acetaminophen (*CRX) 7.5-325 MG TABLET 1 TAB PO (20:38)
[2020-08-05] MEDS: METOPROLOL SUCCINATE EXT REL 50 MG TABCR BY MOUTH (21:29)
[2020-08-05] MEDS: MELATONIN 5 MG TABLET PO (22:35)
[2020-08-06] MEDS: HYDROcodone/acetaminophen (*CRX) 7.5-325 MG TABLET 1 TAB PO ×2 (02:34→08:42)
[2020-08-06 04:52] VITALS: BP 118/77; PULSE 80; RESP 20; TEMP 36.1; O2SAT 95
[2020-08-06] MEDS: ASPIRIN 81 MG ENTERIC TABLET PO (08:42)
[2020-08-06] MEDS: ESCITALOPRAM OXALATE 10 MG TABLET PO (08:42)
[2020-08-06] MEDS: lisinopriL 20 MG TABLET 40 MG PO (08:43)
[2020-08-06 09:21] VITALS: O2SAT 93
--- NOTE | 2020-08-06 12:30 | PM.DS ---
DS: Admitting Diagnosis Admitting Diagnosis Admitting Diagnosis: Admitting diagnosis- trimalleolar fracture displaced posterior and medial malleoli right ankle discharge diagnosis status post open reduction internal fixation medial and posterior malleoli right ankle fracture DS: Summary Hospital Course Hospital Course: patient was admitted status post open reduction internal fixation right ankle fracture posterior and medial malleoli. Patient was admitted overnight for pain control and physical therapy. The patient will be set up for home health care. The patient is to be nonweightbearing right lower extremity. He did well postoperatively and physical therapy. Pain is well controlled with oral pain medication. Vital signs are stable is afebrile neurovascular is intact cast is intact. Patient will follow-up postop as prescheduled with Dr. Swann. The patient voiced understanding agrees above plan. Time Spent with Patient Time attestation: Total time spent providing and/or coordinating discharge services: Exam Narrative: Exam Narrative: well-developed well-nourished male no acute distress alert oriented x3. Normal mood and affect. Neurovascular is intact. Right ankle cast intact good sensation circulation motor function toes equal to the opposite side. Moderate postoperative pain. Ambulated well in physical therapy nonweightbearing right lower extremity with a walker today. No other postoperative issues noted. Discharge Plan Discharge Patient Disposition: Home, Self-Care Discharge Instructions: Up ambulating independently with a walker nonweightbearing right lower extremity. Elevate the ankle on pillows for swelling control. Keep the cast clean dry and intact. Follow-up with Dr. Swann at his prescheduled appointment, the patient is to call the office at [phone] for any problems difficulties or questions. Continue with [place] 7.5 mg 1 tablet p.o. q.6 hours p.r.n. severe pain Patient Instructions: How to Stop Smoking (GEN) Stand Alone Forms: General Discharge Instructions Discharge Medications: New hydrocodone-acetaminophen 7.5-325 mg Tablet 1 tab PO Q6H PRN (Reason: Pain) Qty: 0 RF: 0 Continued aspirin [Adult Low Dose Aspirin] 81 mg tablet,delayed release (DR/EC) 81 mg PO DAILY RF: 0 clopidogrel 75 mg tablet 75 mg PO DAILY Qty: 90 RF: 1 Trelegy Ellipta 100-62.5-25 mcg blister with device 1 inh INHALATION DAILY 90 Days Qty: 180 RF: 2 albuterol sulfate 90 mcg/actuation HFA aerosol inhaler See Rx Instructions .ROUTE .COMPLEX Qty: 25.5 RF: 1 atorvastatin 10 mg tablet 10 mg PO DAILY Qty: 90 RF: 1 albuterol sulfate 2.5 mg /3 mL (0.083 %) solution for nebulization See Rx Instructions .ROUTE .COMPLEX Qty: 120 RF: 5 metoprolol succinate 50 mg tablet extended release 24 hr See Rx Instructions .ROUTE .COMPLEX Qty: 90 RF: 0 Centrum Silver 0.4-300-250 mg-mcg-mcg tablet 1 tablet PO DAILY RF: 0 escitalopram oxalate 10 mg tablet 10 mg PO DAILY Qty: 90 RF: 1 alprazolam 0.25 mg tablet 0.25 mg PO TID PRN (Reason: anxiety) Qty: 90 RF: 0 lisinopril 40 mg tablet 40 mg PO BID Qty: 180 RF: 1 No Action hydrocodone-acetaminophen 5-325 mg tablet 1 tablet PO Q8H PRN (Reason: pain) Qty: 90 RF: 0
--- NOTE | 2020-08-06 13:51 | WPDANESPN ---
Anes - Prog Note Post-Op Date/Time: 08/06/20 13:51 Cardiovascular status: normal Respiratory status: normal Airway patency: baseline Mental status: baseline Post-Op hydration status: normal Vital Signs: Last Vital Signs Temp 36.1 C L 08/06/20 04:52 Pulse 80 08/06/20 04:52 Resp 20 08/06/20 04:52 BP 118/77 08/06/20 04:52 Pulse Ox 93 08/06/20 09:21 Pain Score (VAS): 0/10. Patient resting in bed at time of assessment, appears comfortable. I/O: Intake & Output 08/05/20 08/06/20 08/06/20 23:59 07:59 15:59 Intake Total 780 290 780 Output Total 600 900 475 Balance 180 -610 305 Post-procedural complaints: none Patient Feedback: Patient satisfied with anesthetic care.
== END 2020-08-06 13:40 | disposition home or self-care (01) ==
LOC: ANHSURGERY 09:30 → ANH2MED 15:08
PROVIDERS: Visit Provider Orthopaedic Surgery
PROC: (CPT 27822; principal; 2020-08-05 08:30)
DX: S82.851A Displaced trimalleolar fracture of right lower leg, initial encounter for closed fracture (principal); W01.0XXA Fall on same level from slipping, tripping and stumbling without subsequent striking against object, initial encounter; J44.9 Chronic obstructive pulmonary disease, unspecified; I25.10 Atherosclerotic heart disease of native coronary artery without angina pectoris; I10 Essential (primary) hypertension; E78.00 Pure hypercholesterolemia, unspecified; E78.2 Mixed hyperlipidemia; K21.9 Gastro-esophageal reflux disease without esophagitis; F41.9 Anxiety disorder, unspecified; D64.9 Anemia, unspecified; G89.4 Chronic pain syndrome; Z86.73 Personal history of transient ischemic attack (TIA), and cerebral infarction without residual deficits; Z90.49 Acquired absence of other specified parts of digestive tract; F17.210 Nicotine dependence, cigarettes, uncomplicated; F12.90 Cannabis use, unspecified, uncomplicated; Z79.02 Long term (current) use of antithrombotics/antiplatelets; Z79.82 Long term (current) use of aspirin; Z79.51 Long term (current) use of inhaled steroids; Z79.891 Long term (current) use of opiate analgesic
CPT/HCPCS: 27822; 97161; 97165; A9270; C1713; J0690; J1100; J1170; J2370; J2405; J2704; J3010; J7120

== ENCOUNTER → 2020-11-18 01:36 | Outpatient (CLI) | payer MEDICARE, MEDICAID, SELFPAY ==
[2020-11-18 20:24] LABS: SARS-CoV-2 RNA PCR Negative
== END ==
PROVIDERS: PCP Internal Medicine; Visit Provider Nurse Practitioner
DX: Z20.822 Contact with and (suspected) exposure to COVID-19 (principal)
CPT/HCPCS: C9803; U0003; U0005

== ENCOUNTER → 2021-03-30 02:12 | Outpatient (CLI) | payer MEDICARE, MEDICAID, SELFPAY ==
[2021-03-30 13:17] LABS: SARS-CoV-2 RNA PCR Negative
[2021-03-31 14:47] LABS: Influenza A QL RT-PCR Negative (Negative); Influenza B QL RT-PCR Negative (Negative)
== END ==
PROVIDERS: PCP Internal Medicine; Visit Provider Internal Medicine
DX: R68.89 Other general symptoms and signs (principal); Z20.822 Contact with and (suspected) exposure to COVID-19
CPT/HCPCS: 87502; C9803; U0003; U0005

== ENCOUNTER 2021-04-09 12:36 | Emergency (ER) | payer MEDICARE, MEDICAID, SELFPAY ==
[2021-04-09 12:51] VITALS: BP 148/81; PULSE 99; RESP 16; TEMP 36.8; O2SAT 94
--- NOTE | 2021-04-09 13:05 | ED.WOUNDLAC ---
HPI - Wound/Laceration General Chief Complaint: Wound/Laceration Stated Complaint: Splinter in foot Time Seen by Provider: 04/09/21 13:05 Source: patient Mode of arrival: ambulatory History of Present Illness HPI narrative: Dez Platt is a 66 yo male with a PMH of asthma, anxiety, high cholesterol, anticoagulation,HTN, who comes with splinter in foot since yesterday, on the lateral side of foot anterior to heel. He has used forte grease and foot is soaking currently in detergent. Related Data Home Medications Medication Instructions Recorded Confirmed aspirin 81 mg tablet,delayed 81 mg PO DAILY 01/31/19 04/02/21 release prfywgim-xwi-upewd acid 0.4 1 tablet PO DAILY 07/10/20 04/02/21 mg-lycopene 300 mcg-lutein 250 mcg tablet omega 4-iqb-tjw-fish oil 100 cap PO DAILY cap 04/02/21 04/02/21 mg-160 mg-1,000 mg capsule Allergies Allergy/AdvReac Type Severity Reaction Status Date / Time adhesive tape Allergy Mild BLISTERS Verified 04/02/21 14:28 ciprofloxacin Allergy Unknown Rash Verified 04/02/21 14:28 venom-honey bee Allergy Unknown ANAPHYLAXIS Verified 04/02/21 14:28 Review of Systems Review of Systems: CONSTITUTIONAL: Denies fever, chills, sweats. EYES: Denies visual changes, redness, discharge. ENT: Denies rhinorrhea, congestion, sore throat, otalgia. CARDIOVASCULAR: Denies chest pain, palpitations, edema. RESPIRATORY: Denies dyspnea, wheezing, cough GASTROINTESTINAL: Denies abdominal pain, nausea, vomiting, diarrhea. GENITOURINARY: Denies dysuria, hematuria, abnormal discharge SKIN: Denies rash or itching. NEUROLOGIC: Denies numbness, or focal weakness. PSYCHIATRIC: Denies anxiety or depression. Splinter left foot, lateral side PMFSH Past Medical History Medical History Abnormal EKG Acute exacerbation of chronic obstructive pulmonary disease (COPD) Anemia Antiplatelet or antithrombotic long-term use Anxiety Arthritis Bilateral carotid bruits Body mass index (BMI) 35.0-35.9, adult (10/15/18) CAD (coronary atherosclerotic disease) Carotid artery disease Chronic low back pain Chronic pain syndrome Cigarette nicotine dependence without complication Colovesical fistula COPD (chronic obstructive pulmonary disease) Diverticulitis WHITNEY (dyspnea on exertion) Elevated liver enzymes Emphysema of lung Esophageal ulcer Essential (primary) hypertension GERD (gastroesophageal reflux disease) GI bleed Hypercholesterolemia Hypertension Liver disease Mixed hyperlipidemia Primary biliary cholangitis Rectal polyp Rotator cuff tear On the left without repair TIA (transient ischemic attack) 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 now sees okay Tobacco abuse Ulcer of esophagus without bleeding Surgical History Surgical History H/O inguinal hernia repair H/O rectal polypectomy H/O vasectomy History of appendectomy History of carpal tunnel surgery of left wrist History of colon resection Hx of tonsillectomy Family History Family History Father Family history of Alzheimer's disease Patient's father is , Onset Age: 88 Heart disease Sibling Family history of Parkinson's disease Cerebrovascular accident Mother Family history of heart disease in male family member before age 55 Rheumatoid arthritis Family history of Alzheimer's disease Other Hypertension Social History Social History Social History: Patient stated over the last week he dropped down to about half a pack a cigarettes or last maybe 1/3 of a pack. He lives with his dog. The patient may drink 6-10 stag beers in a week's time. The patient tells me that he does have medical marijuana 80 smokes though oils. Smoking packs per day: 0.75 Smoking cigarettes per day: 15.0 Years smoked: 50 Smoking pack-ye
[2021-04-09] MEDS: TETANUS,DIPHTHERIA,AC PERTUSSIS ADULT (0.5 ML) BOOSTRIX IM (13:50)
== END 2021-04-09 14:06 | disposition home or self-care (01) ==
PROVIDERS: Emergency Provider Nurse Practitioner; PCP Internal Medicine
DX: S91.342A Puncture wound with foreign body, left foot, initial encounter (principal); W45.8XXA Other foreign body or object entering through skin, initial encounter; Z23 Encounter for immunization; Z79.82 Long term (current) use of aspirin; J45.909 Unspecified asthma, uncomplicated; E78.00 Pure hypercholesterolemia, unspecified; I10 Essential (primary) hypertension; M19.90 Unspecified osteoarthritis, unspecified site; I25.10 Atherosclerotic heart disease of native coronary artery without angina pectoris; J44.9 Chronic obstructive pulmonary disease, unspecified; K21.9 Gastro-esophageal reflux disease without esophagitis; E78.2 Mixed hyperlipidemia; Z86.73 Personal history of transient ischemic attack (TIA), and cerebral infarction without residual deficits; F17.210 Nicotine dependence, cigarettes, uncomplicated
CPT/HCPCS: 90471; 90715; 99212; A9270; G0463

== ENCOUNTER 2021-05-14 15:54 | Outpatient (CLI) | payer MEDICARE, MEDICAID, SELFPAY ==
--- NOTE | ~2021-05-14 | XR_ITS ---
XR lumbar spine 2-3V 05/14/2021 16:54 Indication: Low back pain Procedure: 3 views lumbar spine Comparison: 10/06/2016 Findings: There is mild disc narrowing at L4-5 and L5-S1. There is atherosclerosis of the aorta. Mild wedge shaped appearance to T12 and L1, which appears chronic. There are facet degenerative changes a t L4-5 and L5-S1. There is fusiform aneurysm of the abdominal aorta measuring 4 cm. Impression: 1: Moderate lumbar spondylosis. 2: Fusiform abdominal aortic aneurysm measuring 4 cm. Reviewed, dictated and finalized at location A. 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 2: Fusiform abdominal aortic aneurysm measuring 4 cm.
--- NOTE | ~2021-05-14 | MR_ITS ---
EXAMINATION: MR lumbar spine wo con DATE: 05/14/2021 16:55 INDICATION: Radiculopathy, lumbar region. TECHNIQUE: Magnetic resonance imaging (MRI) of the lumbar spine was performed without intravenous con trast. Sequences included sagittal T2-weighted FSE, sagittal T2-weighted FS FSE, sagittal T1-weighted FSE, and axial T2-weighted FSE. COMPARISON: Lumbar spine MRI 08/20/2019, radiographs 05/14/2021 FINDINGS: Partially visualized is an abdominal aortic aneurysm measuring at least 3.1 cm. Bone alignm ent is normal. There is mild chronic anterior wedging of T11-L1 vertebral bodies. There are Schmorl's nodes at most levels. There is severely decreased disc height at L5-S1 with endplate remodeling. The distal spinal cord signal intensity is normal. The conus medullaris is at L1-L2. The following disc levels are specifically discussed: L1-L2: The disc does not extend beyond the endplate margin. There is mild bilateral facet joint osteo arthritis. There is no neural foraminal stenosis. There is no central canal stenosis. L2-L3: The disc does not extend beyond the endplate margin. There is mild bilateral facet joint osteo arthritis. There is no neural foraminal stenosis. There is no central canal stenosis. L3-L4: The disc is bulging and has an annular fissure. There is mild bilateral facet joint osteoarthr itis. There is mild right and moderate left neural foraminal stenosis. There is mild central canal st enosis. L4-L5: The disc is bulging and has an annular fissure. There is mild bilateral facet joint osteoarthr itis. There is mild right and moderate left neural foraminal stenosis. There is mild central canal st enosis. L5-S1: Is bulging and has an annular fissure. There is mild bilateral facet joint osteoarthritis. The re is mild bilateral neural foraminal stenosis. There is mild central canal stenosis. IMPRESSION: 1. Severe lower lumbar spondylosis, stable from 08/20/2019. Reviewed, dictated and finalized at location A. [employer] HOU[employer] K[employer]PER
== END 2021-05-14 15:55 | disposition home or self-care (01) ==
PROVIDERS: PCP Internal Medicine; Visit Provider Pain Medicine Interventional Pain Medicine
DX: E66.9 Obesity, unspecified (principal); F17.210 Nicotine dependence, cigarettes, uncomplicated; F41.1 Generalized anxiety disorder; G89.4 Chronic pain syndrome; I10 Essential (primary) hypertension; J44.9 Chronic obstructive pulmonary disease, unspecified; M47.26 Other spondylosis with radiculopathy, lumbar region; M47.24 Other spondylosis with radiculopathy, thoracic region; I71.4 Abdominal aortic aneurysm, without rupture
CPT/HCPCS: 72100; 72148

== ENCOUNTER 2021-06-09 12:35 | Outpatient (CLI) | payer MEDICARE, MEDICAID, SELFPAY ==
--- NOTE | ~2021-06-09 | US_ITS ---
EXAMINATION: US aorta DATE: 06/09/2021 11:49 INDICATION: Abdominal aortic aneurysm without rupture. TECHNIQUE: Grayscale, color Doppler, and pulsed Doppler images of the aorta and common iliac arteries were obtained. COMPARISON: None. FINDINGS: The proximal aorta measures 2.3 cm in AP diameter. The mid aorta measures 2.9 cm. The distal aorta me asures 3.0 cm. The right common iliac artery measures 1.9 cm. The left common iliac artery measures 1 .5 cm. IMPRESSION: 1. Mild ectasia of the distal abdominal aorta measuring up to 3.0 cm. Reviewed, dictated and finalized at location A.
--- NOTE | ~2021-06-09 | US_ITS ---
EXAMINATION: US carotid duplex BI EXAM DATE: 06/09/2021 11:51 INDICATION: R09.89 - Other specified symptoms and signs involving the... Right carotid occlusion. Ben ateral carotid bruit. TECHNIQUE: Grayscale, color and pulsed Doppler images of the cervical carotid arteries were obtained . The degree of vessel stenosis is placed in one of the following categories: normal, <50% stenosis, 50-69% stenosis, >=70% stenosis but less than near-occlusion, near-occlusion, or occlusion. Note that percent stenosis relative to normal distal artery lumen diameter is indirectly measured from velocit y measurements as described by Aden, et al. Radiology 2003; [id number]. Comparison is made to prior examination from 07/21/2017. FINDINGS: RIGHT SIDE: Right common carotid artery peak systolic velocity (PSV in cm/s): 40 Right bulb/internal carotid artery peak systolic velocity (PSV in cm/s): No flow Right internal carotid artery end diastolic velocity (EDV in cm/s): No flow Right external carotid artery peak systolic velocity (PSV in cm/s): 54 Right vertebral artery antegrade flow: yes ICA occlusion unchanged. LEFT SIDE: Left common carotid artery peak systolic velocity (PSV in cm/s): 73 Left bulb/internal carotid artery peak systolic velocity (PSV in cm/s): 59 Left internal carotid artery end diastolic velocity (EDV in cm/s): 18 Left ICA/CCA peak systolic ratio: 0.8 Left external carotid artery peak systolic velocity (PSV in cm/s): 40 Left vertebral artery antegrade flow: yes There is mild carotid bulb plaque. Velocity and Doppler waveforms in the common and internal carotid arteries is normal. IMPRESSION: 1. Occluded right internal carotid artery. 2. Less than 50 percent stenosis in the left internal carotid artery. > Reviewed, dictated and finalized at location B.
[2021-06-09 13:15] LABS: Alanine Aminotransferase 16 U/L (4-50); Alkaline Phosphatase 120 U/L (38-126); Anion Gap 7 mmol/L (8-16); Aspartate Amino Transferase 25 U/L (17-59); Bilirubin,Total 0.3 mg/dL (0.2-1.3); Blood Urea Nitrogen 7 mg/dL (9-20); Calcium 8.8 mg/dL (8.4-10.2); Carbon Dioxide 28 mmol/L (22-30); Chloride 98 mmol/L (98-107); Cholesterol 121 mg/dL (0-200); Estimated Glomerular Filt Rate > 60; Glucose 103 mg/dL (65-110); HDL Direct 42 mg/dL; Potassium 4.7 mmol/L (3.4-5.0); Sodium 133 mmol/L (137-145); Triglycerides 55 mg/dL (<150)
[2021-06-09 13:26] LABS: LDL Cholesterol Direct 56 mg/dL
== END 2021-06-09 12:36 | disposition home or self-care (01) ==
PROVIDERS: Nurse Practitioner; PCP Internal Medicine; Visit Provider Clinical Nurse Specialist
DX: E78.5 Hyperlipidemia, unspecified (principal); I71.4 Abdominal aortic aneurysm, without rupture; R09.89 Other specified symptoms and signs involving the circulatory and respiratory systems; I65.23 Occlusion and stenosis of bilateral carotid arteries
CPT/HCPCS: 36415; 76775; 80053; 80061; 93880

== ENCOUNTER 2021-07-05 12:03 | Outpatient (CLI) | payer MEDICARE, MEDICAID, SELFPAY ==
[2021-07-05 12:31] LABS: Basophils Percent Auto 0.7 % (0.2-1.2); Eosinophils Absolute Auto 0.3 K/mm3 (0-0.3); Eosinophils Percent Auto 4.2 % (0-4.4); Hematocrit 32.1 % (42.0-52.0); Hemoglobin 9.1 g/dL (14.0-18.0); Immature Granulocyte Absolute 0.04 K/mm3 (0.00-0.031); Immature Granulocyte Percent A 0.7 % (0-0.5); Immature Platelet Fraction Pct 5.3 % (0.9-11.2); Immature Reticulocyte Fraction 14.4 % (3.0-15.9); Lymphocytes Absolute Auto 1.06 K/mm3 (0.9-3.2); Lymphocytes Percent Auto 17.7 % (18.3-44.2); Mean Corpuscular HGB Conc 28.3 g/dl (32-36); Mean Corpuscular Hemoglobin 21.4 pg (26-34); Mean Corpuscular Volume 75.4 fl (80-100); Mean Platelet Volume 9.6 fl (7.4-10.4); Monocytes Absolute Auto 0.8 K/mm3 (0.1-0.6); Monocytes Percent Auto 12.9 % (2.6-8.5); Neutrophils Absolute Auto 3.8 K/mm3 (1.3-6.7); Neutrophils Percent Auto 63.8 % (45.5-73.1); Platelet Count Result 371 k/mm3 (150-375); Red Blood Count 4.26 M/mm3 (4.6-6.20); Red Cell Distribution Width 20.4 % (11.5-14.5); Reticulocyte Hemoglobin Conten 19.9 pg (28.2-35.7); Reticulocyte Percent 2.11 % (0.7-4.3); Reticulocytes Absolute 0.09 B/L (32.2-175.7)
[2021-07-05 12:48] LABS: Anisocytosis 3+ (NORMAL); Platelet Estimate Adequate (Adequate); Target Cells 1+ (NORMAL)
[2021-07-05 12:49] LABS: Hypochromasia 2+ (NORMAL)
[2021-07-05 12:50] LABS: Tear Drop Cells 1+ (NORMAL)
[2021-07-05 13:55] LABS: Folic Acid > 20.0 ng/mL (2.76->20)
[2021-07-05 14:06] LABS: Ferritin 4.59 ng/mL (11.1-264)
== END 2021-07-05 12:04 | disposition home or self-care (01) ==
LOC: ANHLAB 12:09
PROVIDERS: PCP Internal Medicine; Visit Provider Internal Medicine
DX: D64.9 Anemia, unspecified (principal)
CPT/HCPCS: 36415; 82607; 82728; 82746; 85025; 85046; 85055

== ENCOUNTER 2021-08-06 11:58 | Outpatient (CLI) | payer MEDICARE, MEDICAID, SELFPAY ==
[2021-08-06 12:36] LABS: Hematocrit 45.7 % (42.0-52.0); Hemoglobin 13.9 g/dL (14.0-18.0); Mean Corpuscular HGB Conc 30.4 g/dl (32-36); Mean Corpuscular Hemoglobin 26.8 pg (26-34); Mean Corpuscular Volume 88.2 fl (80-100); Platelet Count Result 387 k/mm3 (150-375); Red Blood Count 5.18 M/mm3 (4.6-6.20); White Blood Count 7.8 K/mm3 (4.5-10.0)
[2021-08-06 16:29] LABS: Alanine Aminotransferase 20 U/L (6-50); Alkaline Phosphatase 122 U/L (38-126); Anion Gap 6 mmol/L (8-16); Aspartate Amino Transferase 26 U/L (17-59); Bilirubin,Total 0.4 mg/dL (0.2-1.3); Blood Urea Nitrogen 14 mg/dL (9-20); Calcium 9.6 mg/dL (8.4-10.2); Carbon Dioxide 30 mmol/L (22-30); Chloride 97 mmol/L (98-107); Estimated Glomerular Filt Rate > 60; Glucose 102 mg/dL (65-110); Potassium 5.1 mmol/L (3.4-5.0); Sodium 133 mmol/L (137-145)
[2021-08-06 16:39] LABS: Iron 521 ug/dL (49-181)
[2021-08-06 17:12] LABS: Percent Iron Saturation 89 % (20-50)
[2021-08-06 17:38] LABS: Folic Acid > 20.0 ng/mL (2.76->20)
== END 2021-08-06 11:59 | disposition home or self-care (01) ==
LOC: ANHLAB 12:00
PROVIDERS: PCP Internal Medicine; Visit Provider Internal Medicine Hematology & Oncology
DX: D64.9 Anemia, unspecified (principal)
CPT/HCPCS: 36415; 80053; 82607; 82728; 82746; 83540; 83550; 85027

== ENCOUNTER 2021-08-26 01:42 | Day surgery (SDC) | payer MEDICARE, MEDICAID, SELFPAY ==
[2021-08-20 12:20] VITALS: BMI 34.0
--- NOTE | 2021-08-25 13:18 | PM.HPGS ---
History of Present Illness History of Present Illness Consent: Risks, benefits, and alternatives have been discussed and questions answered. Patient agrees to proceed with procedure. Chief complaint: TELLO Narrative: Dez Platt is a 66 year old male Who has been found to have iron deficiency anemia. Hemoglobin is 10.6. He had an EGD 3 years ago that was normal. He has had a sigmoid colon resection for diverticulitis. He is taking iron supplements and is scheduled for iron infusion. He does not see blood in his stools Review of Systems Review of Systems: All systems reviewed & are unremarkable except as noted in HPI and below PMFSH Past Medical History Medical History Abnormal EKG Acute exacerbation of chronic obstructive pulmonary disease (COPD) Anemia Antiplatelet or antithrombotic long-term use Anxiety Arthritis Bilateral carotid bruits Body mass index (BMI) 35.0-35.9, adult (10/15/18) CAD (coronary atherosclerotic disease) Carotid artery disease Chronic low back pain Chronic pain syndrome Cigarette nicotine dependence without complication Colovesical fistula COPD (chronic obstructive pulmonary disease) Diverticulitis WHITNEY (dyspnea on exertion) Elevated liver enzymes Emphysema of lung Esophageal ulcer Essential (primary) hypertension GERD (gastroesophageal reflux disease) GI bleed Hypercholesterolemia Hypertension Liver disease Mixed hyperlipidemia Primary biliary cholangitis Rectal polyp Rotator cuff tear On the left without repair TIA (transient ischemic attack) 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 now sees okay Tobacco abuse Ulcer of esophagus without bleeding Surgical History Surgical History H/O inguinal hernia repair H/O rectal polypectomy H/O vasectomy History of appendectomy History of carpal tunnel surgery of left wrist History of colon resection Hx of tonsillectomy Family History Family History Father Family history of Alzheimer's disease Patient's father is , Onset Age: 88 Heart disease Dementia Sibling Family history of Parkinson's disease Cerebrovascular accident Hypertension Mother Family history of heart disease in male family member before age 55 Rheumatoid arthritis Family history of Alzheimer's disease Hypertension Grandparent Dementia Social History Social History Social History: Patient stated over the last week he dropped down to about half a pack a cigarettes or last maybe 1/3 of a pack. He lives with his dog. The patient may drink 6-10 stag beers in a week's time. The patient tells me that he does have medical marijuana 80 smokes though oils. Smoking packs per day: 0.50 Smoking cigarettes per day: 10.0 Years smoked: 52 Smoking pack-years: 26.00 Smoking status: Current every day smoker Tobacco type: cigarettes Second hand tobacco smoke exposure: Yes Alcohol intake: current Drinks per week: 5 Alcohol use details: HAS CUT BACK- NONE THROUGH THE WEEK Substance use: current Substance use type: marijuana Other substance usage details: DAILY- SMOKE Last use: 08/04/20 Living arrangements: with family Additional occupation/education comments: Construction Gender identity (if verbalized by the patient): Male Spiritual care concerns: No Agree to blood products: Yes Meds Home Medications and Allergies Home Medications Medication Instructions Recorded Confirmed Type aspirin 81 mg tablet,delayed 81 mg PO DAILY 01/31/19 08/20/21 History release (Adult Low Dose Aspirin) albuterol sulfate 2.5 mg/3 mL See Rx Instructions .Route 06/01/20 08/20/21 Rx (0.083 %) solution for nebulization .COMPLEX #120 vials obvhaglg-azl-ijrmm acid 0.4 1 tablet PO DAILY 07/10/20 08/20/21 History mg-lycopene 300 mcg-l
--- NOTE | 2021-08-25 15:34 | WPDANESEPPF ---
Anes - Initial Pre Proc Eval Procedure: Operation Date: 08/26/21 12:30 Proposed Procedures p Colonoscopy - Adolfo Mcmahan MD Date/Time: 08/25/21 15:34 Surgeon: Adolfo Mcmahan MD Pre Op Diagnosis: TELLO Patient Data Age: 66 Gender: M Height: 1.75 m Weight: 104.5 kg Allergies Allergy/AdvReac Type Severity Reaction Status Date / Time venom-honey bee Allergy Severe ANAPHYLAXIS Verified 08/20/21 12:20 ciprofloxacin Allergy Intermediate Rash Verified 08/20/21 12:20 adhesive tape Allergy Mild BLISTERS Verified 08/20/21 12:20 Home Medications Medication Instructions Recorded Confirmed Type aspirin 81 mg tablet,delayed 81 mg PO DAILY 01/31/19 08/20/21 History release (Adult Low Dose Aspirin) albuterol sulfate 2.5 mg/3 mL See Rx Instructions .Route 06/01/20 08/20/21 Rx (0.083 %) solution for nebulization .COMPLEX #120 vials tjcbyhhl-oye-zqljs acid 0.4 1 tablet PO DAILY 07/10/20 08/20/21 History mg-lycopene 300 mcg-lutein 250 mcg tablet (Centrum Silver) omega 3-vkv-nwc-fish oil 100 1 cap PO DAILY 04/02/21 08/20/21 History mg-160 mg-1,000 mg capsule (Fish Oil) atorvastatin 10 mg tablet 10 mg PO DAILY #90 tabs 04/05/21 08/20/21 Rx albuterol sulfate 90 mcg/actuation See Rx Instructions .Route 04/08/21 08/20/21 Rx aerosol inhaler .COMPLEX #8.5 grams escitalopram oxalate 20 mg tablet 20 mg PO DAILY #30 tabs 04/23/21 08/20/21 Rx (Lexapro) metoprolol succinate 50 mg See Rx Instructions .Route 05/03/21 08/20/21 Rx tablet,extended release 24 hr .COMPLEX #90 tabs hydrocodone 7.5 mg-acetaminophen 1 tablet PO Q8H PRN pain #90 tabs 05/14/21 08/20/21 Rx 325 mg tablet clopidogrel 75 mg tablet 75 mg PO DAILY #90 tabs 05/31/21 08/20/21 Rx alprazolam 0.5 mg tablet (Xanax) 0.5 mg PO TID PRN anxiety #90 tabs 06/30/21 08/20/21 Rx ferrous sulfate 325 mg (65 mg 325 mg PO BID #60 tabs 07/10/21 08/20/21 Rx iron) tablet fluticasone fur. 100 mcg-umeclid See Rx Instructions .Route 08/05/21 08/20/21 Rx 62.5 mcg-vilant 25 mcg .COMPLEX PRN copd #28 ea inhalat.powder (Trelegy Ellipta) lisinopril 40 mg tablet 40 mg PO BID #180 tabs 08/23/21 Rx Patient hx anesthesia problems: none Family hx anesthesia problems: none Results Review: All pre-operative results and documents have been reviewed as part of the pre-operative evaluation. [facility] Past Medical History Medical History Abnormal EKG Acute exacerbation of chronic obstructive pulmonary disease (COPD) Anemia Antiplatelet or antithrombotic long-term use Anxiety Arthritis Bilateral carotid bruits Body mass index (BMI) 35.0-35.9, adult (10/15/18) CAD (coronary atherosclerotic disease) Carotid artery disease Chronic low back pain Chronic pain syndrome Cigarette nicotine dependence without complication Colovesical fistula COPD (chronic obstructive pulmonary disease) Diverticulitis WHITNEY (dyspnea on exertion) Elevated liver enzymes Emphysema of lung Esophageal ulcer Essential (primary) hypertension GERD (gastroesophageal reflux disease) GI bleed Hypercholesterolemia Hypertension Liver disease Mixed hyperlipidemia Primary biliary cholangitis Rectal polyp Rotator cuff tear On the left without repair TIA (transient ischemic attack) 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 now sees okay Tobacco abuse Ulcer of esophagus without bleeding Surgical History Surgical History H/O inguinal hernia repair H/O rectal polypectomy H/O vasectomy History of appendectomy History of carpal tunnel surgery of left wrist History of colon resection Hx of tonsillectomy Family History Family History Father Family history of Alzheimer's disease Patient's father is , Onset Age: 88 Heart disease Dementia Sibling Family history of Parkinson's disease Cerebrovascular accident Hyperte
[2021-08-26 10:33] VITALS: BP 141/103; PULSE 114; RESP 22; TEMP 36.9; O2SAT 94
[2021-08-26 10:37] VITALS: BMI 33.1
[2021-08-26] MEDS: LACTATED RINGERS 1,000 ML 150 ML IV CONT (10:45)
[2021-08-26 11:38] VITALS: BP 114/78; PULSE 95; RESP 21; O2SAT 94
[2021-08-26 11:48] VITALS: BP 137/92; PULSE 91; RESP 18; O2SAT 92
[2021-08-26 11:58] VITALS: BP 149/98; PULSE 86; RESP 17; O2SAT 94
== END 2021-08-26 12:01 | disposition home or self-care (01) ==
PROVIDERS: PCP Internal Medicine; Visit Provider Internal Medicine Gastroenterology
PROC: 0DJD8ZZ Inspection of Lower Intestinal Tract, Via Natural or Artificial Opening Endoscopic (ICD-10-PCS; CPT 45378; principal; 2021-08-26 12:30)
DX: D50.9 Iron deficiency anemia, unspecified (principal); K57.30 Diverticulosis of large intestine without perforation or abscess without bleeding; D17.5 Benign lipomatous neoplasm of intra-abdominal organs; Z98.0 Intestinal bypass and anastomosis status; Z87.19 Personal history of other diseases of the digestive system; Z90.49 Acquired absence of other specified parts of digestive tract; J44.9 Chronic obstructive pulmonary disease, unspecified; F41.9 Anxiety disorder, unspecified; I25.10 Atherosclerotic heart disease of native coronary artery without angina pectoris; I10 Essential (primary) hypertension; K21.9 Gastro-esophageal reflux disease without esophagitis; G89.4 Chronic pain syndrome; E78.00 Pure hypercholesterolemia, unspecified; E78.2 Mixed hyperlipidemia; Z86.73 Personal history of transient ischemic attack (TIA), and cerebral infarction without residual deficits; F17.210 Nicotine dependence, cigarettes, uncomplicated; F12.90 Cannabis use, unspecified, uncomplicated; Z79.82 Long term (current) use of aspirin; Z79.51 Long term (current) use of inhaled steroids; Z79.02 Long term (current) use of antithrombotics/antiplatelets; Z79.891 Long term (current) use of opiate analgesic; E66.9 Obesity, unspecified; Z68.33 Body mass index [BMI] 33.0-33.9, adult
CPT/HCPCS: 45378; J2704; J7120

== ENCOUNTER 2021-09-21 14:18 | Outpatient (CLI) | payer MEDICARE, MEDICAID, SELFPAY ==
[2021-09-21 15:02] LABS: Hematocrit 45.2 % (42.0-52.0); Hemoglobin 15.2 g/dL (14.0-18.0); Mean Corpuscular HGB Conc 33.6 g/dl (32-36); Mean Corpuscular Hemoglobin 32.1 pg (26-34); Mean Corpuscular Volume 95.6 fl (80-100); Mean Platelet Volume 9.3 fl (7.4-10.4); Platelet Count Result 336 k/mm3 (150-375); Red Blood Count 4.73 M/mm3 (4.6-6.20); White Blood Count 7.3 K/mm3 (4.5-10.0)
[2021-09-21 16:09] LABS: Iron 324 ug/dL (49-181)
[2021-09-21 16:19] LABS: Percent Iron Saturation 56 % (20-50)
== END 2021-09-21 14:19 | disposition home or self-care (01) ==
PROVIDERS: PCP Internal Medicine; Visit Provider Internal Medicine Hematology & Oncology
DX: D64.9 Anemia, unspecified (principal)
CPT/HCPCS: 36415; 82728; 83540; 83550; 85027

== ENCOUNTER 2022-08-30 13:49 | Outpatient (CLI) | payer MEDICARE, MEDICAID, SELFPAY ==
[2022-08-30 14:40] LABS: Basophils Percent Auto 0.4 % (0.2-1.2); Eosinophils Absolute Auto 0.1 K/mm3 (0-0.3); Eosinophils Percent Auto 1.7 % (0-4.4); Hematocrit 30.3 % (42.0-52.0); Hemoglobin 8.8 g/dL (14.0-18.0); Immature Granulocyte Absolute 0.11 K/mm3 (0.00-0.031); Immature Granulocyte Percent A 1.5 % (0-0.5); Lymphocytes Absolute Auto 0.87 K/mm3 (0.9-3.2); Mean Corpuscular Hemoglobin 22.2 pg (26-34); Mean Corpuscular Volume 76.3 fl (80-100); Mean Platelet Volume 9.7 fl (7.4-10.4); Monocytes Absolute Auto 0.8 K/mm3 (0.1-0.6); Monocytes Percent Auto 11.2 % (2.6-8.5); Neutrophils Absolute Auto 5.3 K/mm3 (1.3-6.7); Neutrophils Percent Auto 73.2 % (45.5-73.1); Platelet Count Result 461 k/mm3 (150-375); Red Blood Count 3.97 M/mm3 (4.6-6.20); White Blood Count 7.2 K/mm3 (4.5-10.0)
[2022-08-30 16:52] LABS: Platelet Estimate Increased (Adequate)
[2022-08-30 16:53] LABS: Anisocytosis 1+ (NORMAL); Hypochromasia 1+ (NORMAL); Ovalocytes 1+ (NORMAL); Schistocytes None Seen (NORMAL); Target Cells 1+ (NORMAL)
[2022-08-30 19:45] LABS: Alanine Aminotransferase 21 U/L (6-50); Alkaline Phosphatase 119 U/L (38-126); Anion Gap 3 mmol/L (8-16); Aspartate Amino Transferase 55 U/L (17-59); Bilirubin,Total 0.3 mg/dL (0.2-1.3); Blood Urea Nitrogen 14 mg/dL (9-20); Calcium 9.5 mg/dL (8.4-10.2); Carbon Dioxide 32 mmol/L (22-30); Chloride 94 mmol/L (98-107); Cholesterol 132 mg/dL (0-200); Estimated Glomerular Filt Rate > 60; Glucose 109 mg/dL (65-110); HDL Direct 52 mg/dL; Potassium 4.3 mmol/L (3.4-5.0); Sodium 129 mmol/L (137-145); Triglycerides 102 mg/dL (<150)
[2022-08-30 19:55] LABS: LDL Cholesterol Direct 53 mg/dL
[2022-08-30 20:15] LABS: Prostate Specific Antigen 0.5 ng/mL (< OR = 4.0)
[2022-08-30 20:58] LABS: Ferritin 5.71 ng/mL (11.1-264)
== END 2022-08-30 13:50 | disposition home or self-care (01) ==
LOC: ANHGOSHLAB 13:51
PROVIDERS: PCP Internal Medicine; Visit Provider Internal Medicine
DX: D50.9 Iron deficiency anemia, unspecified (principal); I10 Essential (primary) hypertension; J43.9 Emphysema, unspecified; R73.02 Impaired glucose tolerance (oral); Z72.0 Tobacco use; Z12.5 Encounter for screening for malignant neoplasm of prostate
CPT/HCPCS: 36415; 80053; 80061; 82728; 83036; 84153; 85025; G0103

== ENCOUNTER 2022-09-14 13:32 | Outpatient (CLI) | payer MEDICARE, MEDICAID, SELFPAY ==
[2022-09-14 14:56] LABS: Basophils Percent Auto 0.4 % (0.2-1.2); Eosinophils Absolute Auto 0.2 K/mm3 (0-0.3); Eosinophils Percent Auto 2.3 % (0-4.4); Hematocrit 31.4 % (42.0-52.0); Hemoglobin 9.4 g/dL (14.0-18.0); Immature Granulocyte Percent A 1.4 % (0-0.5); Immature Platelet Fraction Pct 4.5 % (0.9-11.2); Immature Reticulocyte Fraction 28.6 % (3.0-15.9); Mean Corpuscular HGB Conc 29.9 g/dl (32-36); Mean Corpuscular Hemoglobin 24.4 pg (26-34); Mean Corpuscular Volume 81.6 fl (80-100); Mean Platelet Volume 9.7 fl (7.4-10.4); Monocytes Absolute Auto 0.7 K/mm3 (0.1-0.6); Monocytes Percent Auto 9.4 % (2.6-8.5); Neutrophils Absolute Auto 5.2 K/mm3 (1.3-6.7); Neutrophils Percent Auto 71.5 % (45.5-73.1); Platelet Count Result 462 k/mm3 (150-375); Red Blood Count 3.85 M/mm3 (4.6-6.20); Red Cell Distribution Width 26.9 % (11.5-14.5); Reticulocyte Hemoglobin Conten 32.2 pg (28.2-35.7); Reticulocyte Percent 4.71 % (0.7-4.3); Reticulocytes Absolute 0.18 M/mm3 (0.02-0.1); White Blood Count 7.3 K/mm3 (4.5-10.0)
[2022-09-14 14:58] LABS: Alanine Aminotransferase 19 U/L (6-50); Albumin Level 4.1 g/dL (3.5-5.1); Alkaline Phosphatase 129 U/L (38-126); Anion Gap 7 mmol/L (8-16); Aspartate Amino Transferase 22 U/L (17-59); Bilirubin,Total 0.4 mg/dL (0.2-1.3); Blood Urea Nitrogen 10 mg/dL (9-20); Calcium 9.2 mg/dL (8.4-10.2); Carbon Dioxide 27 mmol/L (22-30); Chloride 93 mmol/L (98-107); Estimated Glomerular Filt Rate > 60; Glucose 97 mg/dL (65-110); Potassium 4.3 mmol/L (3.4-5.0); Sodium 127 mmol/L (137-145)
[2022-09-14 16:05] LABS: Platelet Estimate Increased (Adequate)
[2022-09-14 16:06] LABS: Schistocytes None Seen (NORMAL)
[2022-09-14 16:07] LABS: Erythrocyte Sedimentation Rate 45 mm/hr (0-20); Hypochromasia 1+ (NORMAL)
[2022-09-14 16:08] LABS: Anisocytosis 3+ (NORMAL)
[2022-09-16 09:18] LABS: Haptoglobin 368 mg/dL (43-212)
== END 2022-09-14 13:33 | disposition home or self-care (01) ==
PROVIDERS: PCP Internal Medicine; Visit Provider Internal Medicine
DX: D64.9 Anemia, unspecified (principal); E87.1 Hypo-osmolality and hyponatremia
CPT/HCPCS: 36415; 80053; 83010; 85025; 85046; 85055; 85652

== ENCOUNTER 2022-09-26 15:31 | Outpatient (CLI) | payer MEDICARE, MEDICAID, SELFPAY ==
[2022-09-26 16:24] LABS: Basophils Percent Auto 0.3 % (0.2-1.2); Eosinophils Absolute Auto 0.2 K/mm3 (0-0.3); Eosinophils Percent Auto 3.3 % (0-4.4); Hematocrit 36.1 % (42.0-52.0); Hemoglobin 10.7 g/dL (14.0-18.0); Immature Granulocyte Absolute 0.04 K/mm3 (0.00-0.031); Immature Granulocyte Percent A 0.7 % (0-0.5); Lymphocytes Absolute Auto 1.05 K/mm3 (0.9-3.2); Mean Corpuscular HGB Conc 29.6 g/dl (32-36); Mean Corpuscular Hemoglobin 26.2 pg (26-34); Mean Corpuscular Volume 88.3 fl (80-100); Mean Platelet Volume 9.7 fl (7.4-10.4); Monocytes Absolute Auto 0.5 K/mm3 (0.1-0.6); Monocytes Percent Auto 9.2 % (2.6-8.5); Neutrophils Percent Auto 68.5 % (45.5-73.1); Platelet Count Result 425 k/mm3 (150-375); Red Blood Count 4.09 M/mm3 (4.6-6.20); White Blood Count 5.8 K/mm3 (4.5-10.0)
[2022-09-26 16:42] LABS: Anion Gap 5 mmol/L (8-16); Blood Urea Nitrogen 8 mg/dL (9-20); Calcium 9.1 mg/dL (8.4-10.2); Carbon Dioxide 31 mmol/L (22-30); Chloride 94 mmol/L (98-107); Estimated Glomerular Filt Rate > 60; Glucose 112 mg/dL (65-110); Hypochromasia 1+ (NORMAL); Ovalocytes 1+ (NORMAL); Platelet Estimate Increased (Adequate); Schistocytes None Seen (NORMAL); Sodium 130 mmol/L (137-145)
== END 2022-09-26 15:32 | disposition home or self-care (01) ==
PROVIDERS: PCP Internal Medicine; Visit Provider Internal Medicine
DX: E87.1 Hypo-osmolality and hyponatremia (principal); D64.9 Anemia, unspecified
CPT/HCPCS: 36415; 80048; 85025

== ENCOUNTER 2022-09-29 02:00 | Day surgery (SDC) | payer MEDICARE, MEDICAID, SELFPAY ==
[2022-09-21 11:25] VITALS: BMI 33.2
--- NOTE | 2022-09-29 06:20 | PM.HPGS ---
History of Present Illness History of Present Illness Consent: Risks, benefits, and alternatives have been discussed and questions answered. Patient agrees to proceed with procedure. Chief complaint: Iron Deficiency Anemia Narrative: Dez Platt is a 67 year old male with a history of iron deficiency anemia along with a history of sigmoid resection related to diverticulitis and fistula, gastric AVMs and esophageal ulcers.? In [address] Alvarez he was found to have esophageal ulcer measuring 15 mm and gastric body AVMs that were not actively bleeding that were but were treated with APC x2 ? He had a follow-up EGD several months later in [address] Grace with with no evidence of ulcers or AVM's.? Review of Systems Review of Systems: All systems reviewed & are unremarkable except as noted in HPI and below PMFSH Past Medical History Medical History Abnormal EKG Acute exacerbation of chronic obstructive pulmonary disease (COPD) Anemia Antiplatelet or antithrombotic long-term use Anxiety Arthritis AVM (arteriovenous malformation) of stomach, acquired Bilateral carotid bruits Body mass index (BMI) 35.0-35.9, adult (10/15/18) CAD (coronary atherosclerotic disease) Carotid artery disease Chronic low back pain Chronic pain syndrome Cigarette nicotine dependence without complication Colovesical fistula COPD (chronic obstructive pulmonary disease) Diverticulitis WHITNEY (dyspnea on exertion) Elevated liver enzymes Emphysema of lung Esophageal ulcer Essential (primary) hypertension GERD (gastroesophageal reflux disease) GI bleed Hypercholesterolemia Hypertension Liver disease Mixed hyperlipidemia Primary biliary cholangitis Rectal polyp Rotator cuff tear On the left without repair TIA (transient ischemic attack) 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 now sees okay Tobacco abuse Ulcer of esophagus without bleeding Surgical History Surgical History H/O inguinal hernia repair H/O rectal polypectomy H/O vasectomy History of appendectomy History of carpal tunnel surgery of left wrist History of colon resection Hx of tonsillectomy Family History Family History Father Family history of Alzheimer's disease Patient's father is , Onset Age: 88 Heart disease Dementia Sibling Family history of Parkinson's disease Cerebrovascular accident Hypertension Mother Family history of heart disease in male family member before age 55 Rheumatoid arthritis Family history of Alzheimer's disease Hypertension Grandparent Dementia Social History Social History Social History: Patient stated over the last week he dropped down to about half a pack a cigarettes or last maybe 1/3 of a pack. He lives with his dog. The patient may drink 6-10 stag beers in a week's time. The patient tells me that he does have medical marijuana 80 smokes though oils. Smoking packs per day: 0.5 Smoking cigarettes per day: 10.0 Years smoked: 50 Smoking pack-years: 25.00 Smoking status: Current every day smoker Tobacco type: cigarettes Second hand tobacco smoke exposure: Yes Alcohol intake: current Drinks per week: 3 Alcohol use details: BEERS/DRINKS Substance use: current Substance use type: marijuana Other substance usage details: MEDICAL CARD- COUPLE TIMES A WEEK SMOKES Last use: 08/04/20 Lack of Transportation: No Lack of Food: Never True Current Housing: I Have Housing Concerned About Future Housing: No Difficulty Paying Gas/Electric Bills: YES Difficulty Paying for Meds: No Currently Unemployed: No Education: High School Diploma/GED Difficulty w/ Childcare or Family Care: No Living arrangements: alone Occupation/Education: retired Additional occupation/education commen
[2022-09-29 12:12] VITALS: BP 122/87; PULSE 102; RESP 18; TEMP 36.5; O2SAT 94; BMI 32.6
[2022-09-29] MEDS: LACTATED RINGERS 1,000 ML 150 ML IV CONT (12:22)
--- NOTE | 2022-09-29 13:07 | WPDANESEPPF ---
Anes - Initial Pre Proc Eval Procedure: Operation Date: 09/29/22 13:45 Proposed Procedures p Esophagogastroduodenoscopy - Adolfo Mcmahan MD Date/Time: 09/29/22 13:07 Surgeon: Adolfo Mcmahan MD Pre Op Diagnosis: Iron Deficiency Anemia Patient Data Age: 67 Gender: M Height: 1.75 m Weight: 100.3 kg Last Vital Signs Temp 97.7 F 09/29/22 12:12 Pulse 102 H 09/29/22 12:12 Resp 18 09/29/22 12:12 BP 122/87 09/29/22 12:12 Pulse Ox 94 09/29/22 12:12 O2 Del Method Room Air 09/29/22 12:12 Allergies Allergy/AdvReac Type Severity Reaction Status Date / Time venom-honey bee Allergy Severe ANAPHYLAXIS Verified 09/29/22 12:11 ciprofloxacin Allergy Intermediate Rash Verified 09/29/22 12:11 adhesive tape Allergy Mild BLISTERS Verified 09/29/22 12:11 Home Medications Medication Instructions Recorded Confirmed Type aspirin 81 mg tablet,delayed 81 mg PO DAILY 01/31/19 09/29/22 History release (Adult Low Dose Aspirin) albuterol sulfate 2.5 mg/3 mL See Rx Instructions .Route 06/01/20 09/29/22 Rx (0.083 %) solution for nebulization .COMPLEX #120 vials izaeldkr-wvc-pybsm acid 0.4 1 tablet PO DAILY 07/10/20 09/29/22 History mg-lycopene 300 mcg-lutein 250 mcg tablet (Centrum Silver) omega 7-vsn-inq-fish oil 100 2 cap PO DAILY 04/02/21 09/29/22 History mg-160 mg-1,000 mg capsule (Fish Oil) sildenafil 100 mg tablet 100 mg PO DAILY PRN sexual 03/10/22 09/29/22 Rx activity #50 tabs albuterol sulfate 90 mcg/actuation See Rx Instructions .Route 04/22/22 09/29/22 Rx aerosol inhaler .COMPLEX #8.5 grams fluticasone fur. 100 mcg-umeclid See Rx Instructions .Route 04/26/22 09/29/22 Rx 62.5 mcg-vilant 25 mcg .COMPLEX #60 ea inhalat.powder (Trelegy Ellipta) metoprolol succinate 50 mg See Rx Instructions .Route 05/16/22 09/29/22 Rx tablet,extended release 24 hr .COMPLEX #90 tabs clonazepam 0.5 mg tablet (Klonopin) 0.5 mg PO BID PRN anxiety #60 tabs 07/13/22 09/29/22 Rx escitalopram oxalate 20 mg tablet 20 mg PO DAILY #30 tabs 08/09/22 09/29/22 Rx (Lexapro) atorvastatin 10 mg tablet 10 mg PO DAILY #90 tabs 08/19/22 09/29/22 Rx clopidogrel 75 mg tablet 75 mg PO DAILY #90 tabs 09/09/22 09/29/22 Rx hydrocodone 7.5 mg-acetaminophen 1 tablet PO Q8H PRN pain #45 tabs 09/19/22 09/29/22 Rx 325 mg tablet ferrous sulfate 325 mg (65 mg 325 mg PO DAILY 09/21/22 09/29/22 History iron) tablet lisinopril 40 mg tablet 40 mg PO DAILY 09/21/22 09/29/22 History Patient hx anesthesia problems: none Family hx anesthesia problems: none Results Review: All pre-operative results and documents have been reviewed as part of the pre-operative evaluation. [facility] Past Medical History Medical History (Updated 09/14/22 @ 14:51 by Hetal Peck APRN) Abnormal EKG Acute exacerbation of chronic obstructive pulmonary disease (COPD) Anemia Antiplatelet or antithrombotic long-term use Anxiety Arthritis AVM (arteriovenous malformation) of stomach, acquired Bilateral carotid bruits Body mass index (BMI) 35.0-35.9, adult (10/15/18) CAD (coronary atherosclerotic disease) Carotid artery disease Chronic low back pain Chronic pain syndrome Cigarette nicotine dependence without complication Colovesical fistula COPD (chronic obstructive pulmonary disease) Diverticulitis WHITNEY (dyspnea on exertion) Elevated liver enzymes Emphysema of lung Esophageal ulcer Essential (primary) hypertension GERD (gastroesophageal reflux disease) GI bleed Hypercholesterolemia Hypertension Liver disease Mixed hyperlipidemia Primary biliary cholangitis Rectal polyp Rotator cuff tear On the left without repair TIA (transient ischemic attack) 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 now sees okay Tobacco abuse Ulcer of esophagus without bleeding Surgical History Surgical History H/O inguinal hernia repair H/O rectal polypectomy H/O vasectomy History of appendect
[2022-09-29 14:11] VITALS: BP 106/63; PULSE 77; RESP 21; O2SAT 93
[2022-09-29 14:21] VITALS: BP 135/89; PULSE 79; RESP 21; O2SAT 93
[2022-09-29 14:31] VITALS: BP 133/84; PULSE 77; RESP 16; O2SAT 93
== END 2022-09-29 14:48 | disposition home or self-care (01) ==
PROVIDERS: PCP Internal Medicine; Visit Provider Internal Medicine Gastroenterology
PROC: 0DJ08ZZ Inspection of Upper Intestinal Tract, Via Natural or Artificial Opening Endoscopic (ICD-10-PCS; CPT 43235; principal; 2022-09-29 13:45)
DX: D50.9 Iron deficiency anemia, unspecified (principal); K21.9 Gastro-esophageal reflux disease without esophagitis; K29.70 Gastritis, unspecified, without bleeding; J43.9 Emphysema, unspecified; I10 Essential (primary) hypertension; E78.00 Pure hypercholesterolemia, unspecified; G89.4 Chronic pain syndrome; I25.10 Atherosclerotic heart disease of native coronary artery without angina pectoris; F17.210 Nicotine dependence, cigarettes, uncomplicated; F12.90 Cannabis use, unspecified, uncomplicated; Z79.82 Long term (current) use of aspirin; Z79.02 Long term (current) use of antithrombotics/antiplatelets; Z79.51 Long term (current) use of inhaled steroids; Z79.891 Long term (current) use of opiate analgesic; Z86.73 Personal history of transient ischemic attack (TIA), and cerebral infarction without residual deficits; E66.9 Obesity, unspecified; Z68.32 Body mass index [BMI] 32.0-32.9, adult
CPT/HCPCS: 43239; 82274; 88305; 88342; J2704; J7120

== ENCOUNTER 2022-09-29 17:38 | Outpatient (NON) | payer MEDICARE, MEDICAID, SELFPAY ==
[2022-09-29 17:57] LABS: IFOB Positive Control Positive; Immunochemical Fecal Occult Bl Negative (N)
== END 2022-09-29 17:39 | disposition home or self-care (01) ==
LOC: ANHLAB 17:40
PROVIDERS: PCP Internal Medicine; Visit Provider Nurse Practitioner
DX: D50.9 Iron deficiency anemia, unspecified (principal)
CPT/HCPCS: 82274

== ENCOUNTER 2022-12-05 10:13 | Outpatient (CLI) | payer MEDICARE, MEDICAID, SELFPAY ==
[2022-12-05 11:25] LABS: Basophils Percent Auto 0.5 % (0.2-1.2); Eosinophils Absolute Auto 0.2 K/mm3 (0-0.3); Eosinophils Percent Auto 3.2 % (0-4.4); Hemoglobin 8.5 g/dL (14.0-18.0); Immature Granulocyte Absolute 0.08 K/mm3 (0.00-0.031); Immature Granulocyte Percent A 1.4 % (0-0.5); Lymphocytes Absolute Auto 0.96 K/mm3 (0.9-3.2); Lymphocytes Percent Auto 16.3 % (18.3-44.2); Mean Corpuscular HGB Conc 30.4 g/dl (32-36); Mean Corpuscular Hemoglobin 28.9 pg (26-34); Mean Corpuscular Volume 95.2 fl (80-100); Mean Platelet Volume 9.7 fl (7.4-10.4); Monocytes Absolute Auto 0.6 K/mm3 (0.1-0.6); Monocytes Percent Auto 10.9 % (2.6-8.5); Neutrophils Percent Auto 67.7 % (45.5-73.1); Platelet Count Result 442 k/mm3 (150-375); Red Blood Count 2.94 M/mm3 (4.6-6.20); Red Cell Distribution Width 18.3 % (11.5-14.5); White Blood Count 5.9 K/mm3 (4.5-10.0)
[2022-12-05 11:51] LABS: Anion Gap 7 mmol/L (8-16); Blood Urea Nitrogen 9 mg/dL (9-20); Carbon Dioxide 26 mmol/L (22-30); Chloride 94 mmol/L (98-107); Estimated Glomerular Filt Rate > 60; Glucose 106 mg/dL (65-110); Potassium 4.4 mmol/L (3.4-5.0); Sodium 127 mmol/L (137-145)
== END 2022-12-05 10:14 | disposition home or self-care (01) ==
LOC: ANHLAB 10:17
PROVIDERS: PCP Internal Medicine; Visit Provider Internal Medicine
DX: E87.1 Hypo-osmolality and hyponatremia (principal); D64.9 Anemia, unspecified
CPT/HCPCS: 36415; 80048; 82728; 85025

== ENCOUNTER 2022-12-21 13:47 | Outpatient (CLI) | payer MEDICARE, MEDICAID, SELFPAY ==
[2022-12-21 17:46] LABS: Iron 20 ug/dL (49-181)
[2022-12-21 17:56] LABS: Percent Iron Saturation 4 % (20-50)
[2022-12-21 18:22] LABS: Ferritin 6.38 ng/mL (11.1-264)
== END 2022-12-21 13:48 | disposition home or self-care (01) ==
PROVIDERS: PCP Internal Medicine; Visit Provider Clinical Nurse Specialist
DX: D64.9 Anemia, unspecified (principal)
CPT/HCPCS: 36415; 82728; 83540; 83550

== ENCOUNTER 2023-01-14 19:53 | Emergency (ER) | payer MEDICARE, MEDICAID, SELFPAY ==
--- NOTE | ~2023-01-14 | CT_ITS ---
EXAMINATION: CTA brain carotid DATE: 01/14/2023 22:35 INDICATION: Weakness TECHNIQUE: Computed tomographic angiography (CTA) of the head was performed without and with 100 mL O mnipaque-350 intravenous contrast. CTA of the neck was performed with intravenous contrast. The dose- length product was 1865.30 mGy-cm. Maximum intensity projection and volume rendered 3D-reconstruction s were created by the technologist on a separate workstation. Automated exposure control and iterativ e reconstruction technique were employed. COMPARISON: 02/20/2012 FINDINGS: HEAD CTA: There is no intracranial hemorrhage or acute infarction. There is a 10 mm mass in the right frontal lobe with a large amount of surrounding vasogenic edema. The ventricles are normal. There is no midline shift. The deleon-white matter differentiation is normal. The basal cisterns are patent. Th e orbits are normal. The paranasal sinuses, mastoids and calvarium are normal. There is no significant stenosis of the basilar artery or posterior cerebral arteries. There is no si gnificant stenosis of the intracranial left internal carotid artery or the anterior or middle cerebra l arteries. The anterior communicating artery and posterior communicating arteries are normal. 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 Calcified intracranial atherosclerosis is noted. There is chronic occlusion of the right internal ca rotid artery with recanalization of the supraclinoid segment. NECK CTA: The thyroid gland is unremarkable. The submandibular and parotid glands are symmetric. Ther e is severe emphysema in the visualized upper lobes. The airway is unremarkable. There is moderate ce rvical spondylosis. There is chronic total occlusion of the right internal carotid artery from the carotid bulb through t he siphon. There is 0% stenosis of the proximal left internal carotid artery relative to normal dista l artery lumen diameter. IMPRESSION: 1. 10 mm mass in the right frontal lobe with surrounding vasogenic edema, consistent with metastatic disease. 2. Chronic complete occlusion of the right internal carotid artery from the carotid bulb through the siphon. 3. 0% stenosis of the proximal left internal carotid artery relative to normal distal artery lumen di ameter. 4. 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 5. Partially imaged 7 cm left upper lobe mass with mediastinal lymphadenopathy, consistent with prima ry bronchogenic carcinoma and lymph node metastasis. Reviewed, dictated and finalized at location F. NISTRATIVE SERVICES SPECIALIST IMPRESSION: 1. 10 mm mass in the right frontal lobe with surrounding vasogenic edema, consi stent with metastatic disease. 2. Chronic complete occlusion of the right internal carotid artery from the car otid bulb through the siphon. 3. 0% stenosis of the proximal left internal carotid artery relative to normal distal artery lumen diameter. 4. 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 5. Partially imaged 7 cm left upper lobe mass with mediastinal lymphadenopathy, consistent with primary bronchogenic carcinoma and lymph node metastasis.
--- NOTE | ~2023-01-14 | XR_ITS ---
EXAMINATION: XR chest 1V INDICATION: Weakness, COPD TECHNIQUE: AP view of the chest is obtained. COMPARISON: 04/29/2019 FINDINGS: There is a 7 cm mass of the left upper lobe. There appears to be atelectasis in the right l balbina apex. The heart size is upper limits of normal for technique. No pleural effusion or pneumothorax . IMPRESSION: 1. Left upper lobe mass suspicious for primary bronchogenic carcinoma. Further evaluation with CT is recommended. Reviewed, dictated and finalized at location F. ETS AND PIECES NECKTIE OPERATOR
--- NOTE | ~2023-01-14 | CT_ITS ---
Non-contrast Head CT History: Weakness COMPARISON: 423 Technique: Axial non-contrast imaging of the brain was performed. Dose reduction technique was used on this scan by utilizing automated exposure control and iterative reconstruction technique. The dose -length product (DLP) was 681.00 mGy-cm. Findings: There is a 10-11 mm mass in the posterior right frontal lobe with surrounding vasogenic florence ma, essentially stable from prior exam. No intracranial hemorrhage identified. No midline shift. The ventricles and subarachnoid spaces are normal in size. The calvarium appears normal. The visualized paranasal sinuses and mastoid air cells are clear. Impression: 10-11 mm mass in the posterior right frontal lobe with surrounding vasogenic edema, most likely metas tatic lesion. This is unchanged since 01/14/2023. Reviewed, dictated and finalized at [facility]. RITY OPERATIONS SPECIALIST Impression: 10-11 mm mass in the posterior right frontal lobe with surrounding vasogenic ed cherri, most likely metastatic lesion. This is unchanged since 01/14/2023.
--- NOTE | ~2023-01-14 | CT_ITS ---
EXAMINATION: CT cervical spine wo con DATE: 01/14/2023 22:36 INDICATION: Weakness TECHNIQUE: Computed tomography (CT) of the cervical spine was performed without intravenous contrast. The dose-length product (DLP) was 519.58 mGy-cm. Automated exposure control and iterative reconstruc tion technique were employed. COMPARISON: None FINDINGS: Bone alignment is normal. There is no fracture. There is mild loss of intervertebral disc s pace height at C5-C6 and C6-7. The odontoid process is intact. Small degenerative osteophytes project from the anterior endplates of multiple vertebral bodies. There is posterior fusion of the facets on the right and C2-3. There is multilevel moderate facet and uncovertebral joint osteoarthritis. There is severe emphysema visualized lung apices. IMPRESSION: 1. Mild cervical spondylosis without acute findings. Reviewed, dictated and finalized at location F. ON FURNACE OPERATOR HELPER
--- NOTE | ~2023-01-14 | XR_ITS ---
EXAMINATION: XR humerus LT INDICATION: Pain after fall TECHNIQUE: Two views of the left humerus are obtained. COMPARISON: None available FINDINGS: No fracture, dislocation, or subluxation. The bones, soft tissues, and joint spaces are nor mal. A mass is noted in the left upper lobe. IMPRESSION: 1. No acute osseous abnormality. 2. Left upper lobe mass suspicious for primary bronchogenic carcinoma. Further evaluation with CT of the chest is recommended. Reviewed, dictated and finalized at location F. ERN TECHNICIAN
--- NOTE | ~2023-01-14 | XR_ITS ---
EXAMINATION: XR shoulder LT min 2V INDICATION: Left shoulder pain TECHNIQUE: Four views of the left shoulder are submitted. COMPARISON: 06/13/2018 FINDINGS: Normal alignment. No fracture. There is mild osteoarthritis of the glenohumeral and acromio clavicular joints. Soft tissues are unremarkable. A mass is noted in the left upper lobe. IMPRESSION: 1. No acute osseous abnormality. 2. Left upper lobe mass suspicious for primary bronchogenic carcinoma. Further evaluation with CT of the chest is recommended. Reviewed, dictated and finalized at location F. ING FOREMAN
[2023-01-14 19:54] VITALS: BP 121/91; PULSE 105; RESP 20; TEMP 36.5; O2SAT 94
[2023-01-14 20:02] VITALS: PULSE 103
--- NOTE | 2023-01-14 20:04 | PC.NURSE ---
Patient is wheezing. Patient states that he is smoker and cannot remember when his wheezing started. Patient's SPO2% is 95 on room air.
--- NOTE | 2023-01-14 20:16 | PC.NURSE ---
Patient states that he had degenerative disc disease and has chronic back pain.
[2023-01-14 20:40] VITALS: BP 109/76; PULSE 100; RESP 15; O2SAT 95
--- NOTE | 2023-01-14 20:44 | ECG_ITS ---
Measurements Intervals Shannon Rate: 100 P: 94 WA: 197 QRS: 89 QRSD: 102 T: 36 QT: 340 QTc: 438 Interpretive Statements SINUS TACHYCARDIA INCOMPLETE RIGHT BUNDLE BRANCH BLOCK ST-T WAVE ABNORMALITY IN ANTERIOR LEADS- CONSIDER ISCHEMIA ABNORMAL ECG COMPARED TO ECG 11/14/2019 14:15:13 SINUS TACHYCARDIA NOW PRESENT Electronically Signed On 01-15-2023 6:47:14 BACK TENDER [employer]ULATION BOARD by Yonatan Kennedy D.O.
[2023-01-14 20:52] LABS: Basophils Percent Auto 0.2 % (0.2-1.2); Eosinophils Absolute Auto 0.1 K/mm3 (0-0.3); Eosinophils Percent Auto 1.5 % (0-4.4); Hematocrit 27.9 % (42.0-52.0); Hemoglobin 8.3 g/dL (14.0-18.0); Immature Granulocyte Absolute 0.03 K/mm3 (0.00-0.031); Immature Granulocyte Percent A 0.4 % (0-0.5); Lymphocytes Absolute Auto 0.96 K/mm3 (0.9-3.2); Lymphocytes Percent Auto 11.7 % (18.3-44.2); Mean Corpuscular HGB Conc 29.7 g/dl (32-36); Mean Corpuscular Volume 80.6 fl (80-100); Mean Platelet Volume 10.9 fl (7.4-10.4); Monocytes Absolute Auto 0.8 K/mm3 (0.1-0.6); Monocytes Percent Auto 9.1 % (2.6-8.5); Neutrophils Absolute Auto 6.4 K/mm3 (1.3-6.7); Neutrophils Percent Auto 77.1 % (45.5-73.1); Platelet Count Result 378 k/mm3 (150-375); Red Blood Count 3.46 M/mm3 (4.6-6.20); Red Cell Distribution Width 20.1 % (11.5-14.5); White Blood Count 8.2 K/mm3 (4.5-10.0)
--- NOTE | 2023-01-14 20:58 | PC.NURSE ---
Per EDP Dr. San order a CT of the head for the patient.
[2023-01-14 21:03] LABS: Alanine Aminotransferase 14 U/L (6-50); Albumin Level 4.2 g/dL (3.5-5.1); Alkaline Phosphatase 137 U/L (38-126); Anion Gap 7 mmol/L (8-16); Aspartate Amino Transferase 26 U/L (17-59); Bilirubin,Total 0.5 mg/dL (0.2-1.3); Blood Urea Nitrogen 9 mg/dL (9-20); Calcium 9.4 mg/dL (8.4-10.2); Carbon Dioxide 29 mmol/L (22-30); Chloride 93 mmol/L (98-107); Estimated Glomerular Filt Rate > 60; Glucose 124 mg/dL (65-110); Potassium 3.8 mmol/L (3.4-5.0); Sodium 129 mmol/L (137-145)
--- NOTE | 2023-01-14 21:06 | ED.GENADULT ---
HPI - General Adult General Chief complaint: Weakness Stated complaint: l arm pain, frequent falls Time Seen by Provider: 01/14/23 21:00 History of Present Illness HPI narrative: Patient is a 67-year-old male with history of prior TIA, known 97% right carotid occlusion, anticoagulated on plavix, COPD, CAD, HTN here with weakness. patient states his last known normal was approximately 4-5 days ago. He states that over the last 45 days he began having left-sided weakness. He notes that it seems to be worse in the upper than the lower extremity. The upper extremity weakness began approximately 4-5 days ago, he left upper extremity seemed it began more than 24 hours ago yesterday morning. he notes some associated pain in his left shoulder. He notes that he has had multiple falls in the last 5 days due to the weakness, the last one occurring today out of his scooter. He does endorse chronic back pain which seems to be unchanged from baseline. He denies fever or chills. Notes chronic cough and shortness of breath due to his COPD. He is a fairly poor historian and does not answer questions directly however does not appear to have word finding difficulties or slurred speech. Related Data Home Medications Medication Instructions Recorded Confirmed aspirin 81 mg tablet,delayed 81 mg PO DAILY 01/31/19 01/11/23 release (Adult Low Dose Aspirin) pabgjqjy-kgi-urhtd acid 0.4 1 tablet PO DAILY 07/10/20 01/11/23 mg-lycopene 300 mcg-lutein 250 mcg tablet (Centrum Silver) omega 9-gjr-ibe-fish oil 100 2 cap PO DAILY 04/02/21 01/11/23 mg-160 mg-1,000 mg capsule (Fish Oil) lisinopril 40 mg tablet 40 mg PO DAILY 09/21/22 01/11/23 Allergies Allergy/AdvReac Type Severity Reaction Status Date / Time venom-honey bee Allergy Severe ANAPHYLAXIS Verified 01/11/23 15:40 ciprofloxacin Allergy Intermediate Rash Verified 01/11/23 15:40 adhesive tape Allergy Mild BLISTERS Verified 01/11/23 15:40 Review of Systems Review of Systems: All systems reviewed & are unremarkable except as noted in HPI and below PMFSH Past Medical History Medical History (Updated 01/15/23 @ 01:34 CDT by Karely San MD) Abnormal EKG Acute exacerbation of chronic obstructive pulmonary disease (COPD) Anemia Antiplatelet or antithrombotic long-term use Anxiety Arthritis AVM (arteriovenous malformation) of stomach, acquired Bilateral carotid bruits Body mass index (BMI) 35.0-35.9, adult (10/15/18) CAD (coronary atherosclerotic disease) Carotid artery disease Chronic low back pain Chronic pain syndrome Cigarette nicotine dependence without complication Colovesical fistula COPD (chronic obstructive pulmonary disease) Diverticulitis WHITNEY (dyspnea on exertion) Elevated liver enzymes Emphysema of lung Esophageal ulcer Essential (primary) hypertension Gastritis GERD (gastroesophageal reflux disease) GI bleed Hypercholesterolemia Hypertension Liver disease Mixed hyperlipidemia Primary biliary cholangitis Rectal polyp Rotator cuff tear On the left without repair TIA (transient ischemic attack) 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 now sees okdavid Tobacco abuse Ulcer of esophagus without bleeding Surgical History Surgical History H/O inguinal hernia repair H/O rectal polypectomy H/O vasectomy History of appendectomy History of carpal tunnel surgery of left wrist History of colon resection Hx of tonsillectomy Family History Family History Father Family history of Alzheimer's disease Patient's father is , Onset Age: 88 Heart disease Dementia Sibling Family history of Parkinson's disease Cerebrovascular accident Hypertension Mother Family history of heart disease in male family member before age 55 Rheumatoid arthritis Family history of Alzheimer's disease Hypertension Grandparent Dementia Social History Social History
[2023-01-14 21:18] LABS: Hypochromasia 1+ (NORMAL); Ovalocytes 1+ (NORMAL); Schistocytes None Seen (NORMAL)
[2023-01-14 22:31] VITALS: BP 123/81; PULSE 100; RESP 19; O2SAT 93
[2023-01-14 23:08] LABS: Appearance Urine Clear (Clear); Bacteria Urine None Seen /hpf; Bilirubin Urine Negative (Negative); Blood Urine Negative (Negative); Color Urine Yellow (Yellow); Glucose Urine UA Negative (Negative); Ketones Urine Trace mg/dL (Negative); Leukocyte Esterase Ur Negative LEU/UL (Negative); Need Manual Microscopic Reviewed; Nitrate Urine Negative (Negative); Protein Urine Trace mg/dL (Negative); RBC Urine 0-2 /hpf (0-2); Squamous Epithelial Cell Urine Occasional /hpf (Few); WBC Urine 0-5 /hpf; pH Urine 5.5 (5.0-9.0)
[2023-01-14 23:09] LABS: Add Urine Microscopic? YES; Specific Grav Ur 1.052 (1.001-1.035)
[2023-01-15] VITALS (13 sets, daily range): BP systolic 100–166; BP diastolic 62–104; PULSE 78–113; RESP 16–25; TEMP 36.8; O2SAT 94–100
[2023-01-15] MEDS: MORPHINE SULFATE (*CRX) 4 MG/ML INJ IV PUSH ×2 (00:45→22:12)
[2023-01-15] MEDS: ONDANSETRON INJ 4 MG/2 ML VIAL IV PUSH (00:46)
[2023-01-15] MEDS: IPRATROPIUM BR 0.02% INH SOLN 0.5 MG/2.5 ML VIAL INHALATION (00:56)
[2023-01-15] MEDS: ALBUTEROL SULFATE NEB 2.5 MG/3 ML INH INHALATION (00:56)
--- NOTE | 2023-01-15 01:28 | PC.NURSE ---
[facility] called to gather information for placement for patient
[2023-01-15] MEDS: MELATONIN 5 MG TABLET PO ×2 (01:45→22:17)
[2023-01-15] MEDS: DEXAMETHASONE SOD PHOS INJ 4 MG/ML VIAL IV PUSH (01:45)
[2023-01-15] MEDS: levETIRAcetam 500 MG TABLET PO ×2 (01:45→22:17)
--- NOTE | 2023-01-15 08:00 | PC.NURSE ---
pt updated on POC breakfast ordered pt now has family in room [facility] called, possibly a bed this evening
--- NOTE | 2023-01-15 10:46 | PC.NURSE ---
[facility], do not think there will be a bed today
--- NOTE | 2023-01-15 18:12 | PC.NURSE ---
Hospital bed was given for pt
--- NOTE | 2023-01-15 20:15 | ED.GENADULT ---
HPI - General Adult General Chief complaint: Weakness Stated complaint: l arm pain, frequent falls Time Seen by Provider: 01/14/23 21:00 History of Present Illness HPI narrative: I assumed care of patient from Dr. Browning. Patient has a brain mass. Plan of care to transfer him to [facility] for neurosurgery care. I had extensive history and exam with him and his family. Patient states weakness started 3 days ago. His sister thought he might of had a stroke. However weakness gradually got worse. Last night he noticed he was unable to bear weight on his left leg and fell. He has been here 24 hours pending transfer. In that time his left arm has been stable. However, he notes his left leg is weaker. Initially he could put some weight and turn it. Now cannot move it at all. He states that dangles his son and [id number] are at bedside. Related Data Home Medications Medication Instructions Recorded Confirmed aspirin 81 mg tablet,delayed 81 mg PO DAILY 01/31/19 01/11/23 release (Adult Low Dose Aspirin) nsvdawyq-rvj-nanrc acid 0.4 1 tablet PO DAILY 07/10/20 01/11/23 mg-lycopene 300 mcg-lutein 250 mcg tablet (Centrum Silver) omega 4-eti-vig-fish oil 100 2 cap PO DAILY 04/02/21 01/11/23 mg-160 mg-1,000 mg capsule (Fish Oil) lisinopril 40 mg tablet 40 mg PO DAILY 09/21/22 01/11/23 Allergies Allergy/AdvReac Type Severity Reaction Status Date / Time venom-honey bee Allergy Severe ANAPHYLAXIS Verified 01/11/23 15:40 ciprofloxacin Allergy Intermediate Rash Verified 01/11/23 15:40 adhesive tape Allergy Mild BLISTERS Verified 01/11/23 15:40 Review of Systems Review of Systems: Review of systems negative except what is documented in my HPI, please refer to previous note as well PMFSH Past Medical History Medical History (Updated 01/15/23 @ 01:34 CDT by Karely San MD) Abnormal EKG Acute exacerbation of chronic obstructive pulmonary disease (COPD) Anemia Antiplatelet or antithrombotic long-term use Anxiety Arthritis AVM (arteriovenous malformation) of stomach, acquired Bilateral carotid bruits Body mass index (BMI) 35.0-35.9, adult (10/15/18) CAD (coronary atherosclerotic disease) Carotid artery disease Chronic low back pain Chronic pain syndrome Cigarette nicotine dependence without complication Colovesical fistula COPD (chronic obstructive pulmonary disease) Diverticulitis WHITNEY (dyspnea on exertion) Elevated liver enzymes Emphysema of lung Esophageal ulcer Essential (primary) hypertension Gastritis GERD (gastroesophageal reflux disease) GI bleed Hypercholesterolemia Hypertension Liver disease Mixed hyperlipidemia Primary biliary cholangitis Rectal polyp Rotator cuff tear On the left without repair TIA (transient ischemic attack) 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 now sees okay Tobacco abuse Ulcer of esophagus without bleeding Surgical History Surgical History H/O inguinal hernia repair H/O rectal polypectomy H/O vasectomy History of appendectomy History of carpal tunnel surgery of left wrist History of colon resection Hx of tonsillectomy Family History Family History Father Family history of Alzheimer's disease Patient's father is , Onset Age: 88 Heart disease Dementia Sibling Family history of Parkinson's disease Cerebrovascular accident Hypertension Mother Family history of heart disease in male family member before age 55 Rheumatoid arthritis Family history of Alzheimer's disease Hypertension Grandparent Dementia Social History Social History Social History: Patient stated over the last week he dropped down to about half a pack a cigarettes or last maybe 1/3 of a pack. He lives with his dog. The patient may drink 6-10 stag beers in a week's time. The patient tells me
[2023-01-16 01:27] VITALS: PULSE 81; RESP 18
[2023-01-16] MEDS: ALBUTEROL SULFATE NEB 2.5 MG/3 ML INH INHALATION (01:32)
[2023-01-16 02:00] VITALS: BP 117/85; PULSE 78; RESP 16; O2SAT 100
--- NOTE | 2023-01-16 03:50 | PC.NURSE ---
pt. accepted to [facility] Neuro surgery floor. [id number] report can be called at [phone]
--- NOTE | 2023-01-16 04:00 | PC.NURSE ---
[facility] called for pt. transport states approx. 20-30 minute eta.
[2023-01-16 05:41] VITALS: BP 134/74; PULSE 89; RESP 14; O2SAT 97
== END 2023-01-16 05:41 | disposition short-term general hospital (02) ==
PROVIDERS: Student in an Organized Health Care Education/Training Program; Emergency Provider Emergency Medicine; PCP Internal Medicine
DX: G93.89 Other specified disorders of brain (principal); J98.4 Other disorders of lung; M62.81 Muscle weakness (generalized); R29.6 Repeated falls; I65.21 Occlusion and stenosis of right carotid artery; I25.10 Atherosclerotic heart disease of native coronary artery without angina pectoris; I10 Essential (primary) hypertension; J43.9 Emphysema, unspecified; E78.2 Mixed hyperlipidemia; D64.9 Anemia, unspecified; K76.9 Liver disease, unspecified; M19.90 Unspecified osteoarthritis, unspecified site; K21.9 Gastro-esophageal reflux disease without esophagitis; F17.210 Nicotine dependence, cigarettes, uncomplicated; Z86.73 Personal history of transient ischemic attack (TIA), and cerebral infarction without residual deficits; Z87.19 Personal history of other diseases of the digestive system; Z90.49 Acquired absence of other specified parts of digestive tract; Z79.02 Long term (current) use of antithrombotics/antiplatelets; Z79.82 Long term (current) use of aspirin; R00.0 Tachycardia, unspecified; I45.10 Unspecified right bundle-branch block; R94.31 Abnormal electrocardiogram [ECG] [EKG]; M47.812 Spondylosis without myelopathy or radiculopathy, cervical region
CPT/HCPCS: 36415; 70450; 70496; 70498; 71045; 72125; 73030; 73060; 80053; 81001; 85025; 93005; 94640; 96374; 96375; 96376; 99285; A9270; J1100; J2270; J2405; Q9967

== ENCOUNTER 2023-02-10 14:28 | Inpatient (IN) | payer MEDICARE, MEDICAID, SELFPAY ==
[2023-02-10] VITALS (27 sets, daily range): BP systolic 119–160; BP diastolic 74–92; PULSE 78–121; RESP 14–38; TEMP 36.7–37; O2SAT 91–100; BMI 35.1
--- NOTE | ~2023-02-10 | XR_ITS ---
EXAMINATION: XR chest 1V portable DATE: 02/10/2023 15:10 INDICATION: Cough TECHNIQUE: frontal view of the chest was obtained. COMPARISON: Chest radiograph dated 01/14/2023 FINDINGS: Emphysema with increased lucency and architectural distortion in the bilateral upper lung zones. No s ignificant interval change in approximately 7 cm mass in the suprahilar left upper lobe concerning fo r malignancy. Bilateral perihilar interstitial and subtle airspace opacities which could represent mi ld pulmonary edema or pneumonia. No other airspace opacities, pleural effusion or pneumothorax. Borde rline heart size accounting for AP technique. IMPRESSION: 1. Mild bilateral perihilar interstitial and subtle airspace opacities which could represent mild pul monary edema or pneumonia. 2. Large left upper lobe mass concerning for primary bronchogenic carcinoma. 3. Emphysema. 4. Borderline heart size. Reviewed, dictated and finalized at location [facility] IMPRESSION: 1. Mild bilateral perihilar interstitial and subtle airspace opacities which co uld represent mild pulmonary edema or pneumonia. 2. Large left upper lobe mass concerning for primary bronchogenic carcinoma. 3. Emphysema. 4. Borderline heart size.
--- NOTE | 2023-02-10 14:47 | ECG_ITS ---
Measurements Intervals [place] Rate: 90 P: 63 SD: 189 QRS: 37 QRSD: 113 T: 50 QT: 377 QTc: 464 Interpretive Statements SINUS RHYTHM INCOMPLETE RIGHT BUNDLE BRANCH BLOCK LOW-VOLTAGE QRS IN LIMB LEADS MODERATE T-WAVE ABNORMALITY, CONSIDER ANTERIOR ISCHEMIA [-0.1+ mV T WAVE IN V3/V4] ABNORMAL ECG COMPARED TO ECG 01/14/2023 20:49:55 HEART RATE HAS DECREASED Electronically Signed On 02-11-2023 13:52:44 [employer]PORATE [employer]ER by Jayy Shen M.D.
[2023-02-10] MEDS: IPRATROPIUM BR 0.02% INH SOLN 0.5 MG/2.5 ML VIAL 1 MG INHALATION (15:08)
[2023-02-10] MEDS: ALBUTEROL SULFATE NEB 2.5 MG/3 ML INH 15 MG INHALATION (15:08)
[2023-02-10 15:50] LABS: Basophils Percent Auto 0.2 % (0.2-1.2); Eosinophils Absolute Auto 0.3 K/mm3 (0-0.3); Eosinophils Percent Auto 2.4 % (0-4.4); Hematocrit 28.9 % (42.0-52.0); Hemoglobin 8.6 g/dL (14.0-18.0); Immature Granulocyte Absolute 0.09 K/mm3 (0.00-0.031); Immature Granulocyte Percent A 0.7 % (0-0.5); Lymphocytes Absolute Auto 0.99 K/mm3 (0.9-3.2); Lymphocytes Percent Auto 8.1 % (18.3-44.2); Mean Corpuscular HGB Conc 29.8 g/dl (32-36); Mean Corpuscular Hemoglobin 22.9 pg (26-34); Mean Corpuscular Volume 77.1 fl (80-100); Mean Platelet Volume 9.4 fl (7.4-10.4); Monocytes Absolute Auto 1.1 K/mm3 (0.1-0.6); Neutrophils Absolute Auto 9.7 K/mm3 (1.3-6.7); Neutrophils Percent Auto 79.6 % (45.5-73.1); Platelet Count Result 362 k/mm3 (150-375); Red Blood Count 3.75 M/mm3 (4.6-6.20); White Blood Count 12.2 K/mm3 (4.5-10.0)
[2023-02-10 16:00] LABS: Alanine Aminotransferase 26 U/L (6-50); Albumin Level 3.7 g/dL (3.5-5.1); Alkaline Phosphatase 108 U/L (38-126); Anion Gap 10 mmol/L (8-16); Aspartate Amino Transferase 20 U/L (17-59); Bilirubin,Total 0.4 mg/dL (0.2-1.3); Blood Urea Nitrogen 25 mg/dL (9-20); Calcium 9.1 mg/dL (8.4-10.2); Carbon Dioxide 28 mmol/L (22-30); Chloride 93 mmol/L (98-107); Estimated CRCL calculation 125 ml/min; Estimated Glomerular Filt Rate > 60; Glucose 90 mg/dL (65-110); Potassium 3.8 mmol/L (3.4-5.0); Sodium 131 mmol/L (137-145)
[2023-02-10 16:11] LABS: NT Pro B Type Natriuretic Pept 1170 pg/mL (19.9-100); Troponin I 0.013 ng/mL (0.000-0.034)
[2023-02-10 16:20] LABS: Hypochromasia 1+ (NORMAL); Platelet Estimate Adequate (Adequate); Schistocytes None Seen (NORMAL)
[2023-02-10 16:21] LABS: Anisocytosis 3+ (NORMAL)
--- NOTE | 2023-02-10 16:26 | ED.SOB ---
HPI - SOB/Dyspnea General Chief Complaint: Shortness of Breath/Dyspnea Stated Complaint: respiratory distress Time Seen by Provider: 02/10/23 14:38 History of Present Illness HPI Narrative: Patient with history of COPD, lung cancer, presents here with increased dyspnea, he is not usually on oxygen at baseline however he has required oxygen today. No chest pain. He has issues moving his left arm and that is why he is in rehab. Related Data Home Medications Medication Instructions Recorded Confirmed aspirin 81 mg tablet,delayed 81 mg PO DAILY 01/31/19 01/11/23 release (Adult Low Dose Aspirin) wqilmwix-jqd-bddhm acid 0.4 1 tablet PO DAILY 07/10/20 01/11/23 mg-lycopene 300 mcg-lutein 250 mcg tablet (Centrum Silver) omega 4-bdn-kqb-fish oil 100 2 cap PO DAILY 04/02/21 01/11/23 mg-160 mg-1,000 mg capsule (Fish Oil) lisinopril 40 mg tablet 40 mg PO DAILY 09/21/22 01/11/23 Allergies Allergy/AdvReac Type Severity Reaction Status Date / Time venom-honey bee Allergy Severe ANAPHYLAXIS Verified 01/11/23 15:40 ciprofloxacin Allergy Intermediate Rash Verified 01/11/23 15:40 adhesive tape Allergy Mild BLISTERS Verified 01/11/23 15:40 Review of Systems Review of Systems: All systems reviewed & are unremarkable except as noted in HPI and below PMFSH Past Medical History Medical History (Updated 02/10/23 @ 17:22 by Lakeisha Castro MD) Abnormal EKG Acute exacerbation of chronic obstructive pulmonary disease (COPD) Anemia Antiplatelet or antithrombotic long-term use Anxiety Arthritis AVM (arteriovenous malformation) of stomach, acquired Bilateral carotid bruits Body mass index (BMI) 35.0-35.9, adult (10/15/18) CAD (coronary atherosclerotic disease) Carotid artery disease Chronic low back pain Chronic pain syndrome Cigarette nicotine dependence without complication Colovesical fistula COPD (chronic obstructive pulmonary disease) Diverticulitis WHITNEY (dyspnea on exertion) Elevated liver enzymes Emphysema of lung Esophageal ulcer Essential (primary) hypertension Gastritis GERD (gastroesophageal reflux disease) GI bleed Hypercholesterolemia Hypertension Liver disease Mixed hyperlipidemia Primary biliary cholangitis Rectal polyp Rotator cuff tear On the left without repair TIA (transient ischemic attack) 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 now sees okay Tobacco abuse Ulcer of esophagus without bleeding Surgical History Surgical History H/O inguinal hernia repair H/O rectal polypectomy H/O vasectomy History of appendectomy History of carpal tunnel surgery of left wrist History of colon resection Hx of tonsillectomy Family History Family History Father Family history of Alzheimer's disease Patient's father is , Onset Age: 88 Heart disease Dementia Sibling Family history of Parkinson's disease Cerebrovascular accident Hypertension Mother Family history of heart disease in male family member before age 55 Rheumatoid arthritis Family history of Alzheimer's disease Hypertension Grandparent Dementia Social History Social History Social History: Patient stated over the last week he dropped down to about half a pack a cigarettes or last maybe 1/3 of a pack. He lives with his dog. The patient may drink 6-10 stag beers in a week's time. The patient tells me that he does have medical marijuana 80 smokes though oils. Smoking packs per day: 0.5 Smoking cigarettes per day: 10.0 Years smoked: 50 Smoking pack-years: 25.00 Smoking status: Current every day smoker Tobacco type: cigarettes Second hand tobacco smoke exposure: Yes Alcohol intake: current Drinks per week: 3 Alcohol use details: BEERS/DRINKS Substance use: current Substance use type: marijuana Other substance usage details: MEDICAL CARD- COU
[2023-02-10] MEDS: predniSONE 20 MG TABLET 60 MG PO (16:50)
--- NOTE | 2023-02-10 17:43 | PC.NURSE ---
Pt removed his breathing treatment numerous times since it was started, encouraged by RN to finish it each time. Pt just finished treatment, is now maintaining SpO2 of 93-96% on RA. Repositioned in bed for comfort. Updated on admission room assignment.
--- NOTE | 2023-02-10 19:05 | ADMGEN ---
This patient, Dez Platt, was admitted to [address] [place] [address] Room 305-02 at 1840. Patient/family oriented to hospital policies and general routines including ID bracelet, bed and alarms, visiting hours, pain management, procedures, bathroom and other care routines, personal items, smoking policy, room service/diet, and visiting hours. Information on how to activate the Rapid Response Team has been discussed. Patient/Family are encouraged to report perceived risks to care and to ask questions if they do not understand what they are told or what they should do.
[2023-02-10] MEDS: AZITHROMYCIN 500 MG/NS 250 ML 500 MG/250 ML BAG 250 MG IVPB (19:15)
--- NOTE | 2023-02-10 20:12 | PC.NURSE ---
patient requesting ativan and pain medication informed MD Colbert. OK'd to continue all home medication.
[2023-02-10] MEDS: ACETAMINOPHEN 325 MG TABLET 650 MG PO (21:57)
[2023-02-10] MEDS: levETIRAcetam 500 MG TABLET PO (21:58)
[2023-02-10] MEDS: PANTOPRAZOLE 40 MG TABLET PO (21:58)
[2023-02-10] MEDS: hydrOXYzine HCL 10 MG TABLET PO (21:58)
--- NOTE | 2023-02-10 23:23 | PM.IMHP ---
H&P: HPI History of Present Illness Date/Time: 02/10/23 23:23 Chief Complaint: Patient transferred to the ER for evaluation from rehab with shortness of breath Narrative: He is an unfortunate 67 years old patient with history of lung cancer with Mets to the brain who is under treatment at [facility] in [place], [place]. He is rehab resident and was sent to the ER for evaluation and he is complaining of shortness of breath which is slowly worsening. Patient does not require any oxygen, but was requiring 3 L via nasal cannula at the ER. Workup was done which showed findings consistent with COPD exacerbation with possible pneumonia. Patient started on IV antibiotics and is being admitted for medical management and close monitoring. Review of Systems Review of Systems: he denies any chest pain, palpitations, fever rigor chills, dizziness, loss of consciousness or any falls All systems reviewed & are unremarkable except as noted in HPI and below PMFSH Past Medical History Medical History (Updated 02/10/23 @ 23:50 by Otilio Dubois MD) Abnormal EKG Acute exacerbation of chronic obstructive pulmonary disease (COPD) Anemia Antiplatelet or antithrombotic long-term use Anxiety Arthritis AVM (arteriovenous malformation) of stomach, acquired Bilateral carotid bruits Body mass index (BMI) 35.0-35.9, adult (10/15/18) CAD (coronary atherosclerotic disease) Carotid artery disease Chronic low back pain Chronic pain syndrome Cigarette nicotine dependence without complication Colovesical fistula COPD (chronic obstructive pulmonary disease) Diverticulitis WHITNEY (dyspnea on exertion) Elevated liver enzymes Emphysema of lung Esophageal ulcer Essential (primary) hypertension Gastritis GERD (gastroesophageal reflux disease) GI bleed Hypercholesterolemia Hypertension Liver disease Lung cancer metastatic to brain Mixed hyperlipidemia Nicotine dependence, cigarettes, with other nicotine-induced disorders Primary biliary cholangitis Rectal polyp Rotator cuff tear On the left without repair TIA (transient ischemic attack) 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 now sees okay Tobacco abuse Ulcer of esophagus without bleeding Surgical History Surgical History H/O inguinal hernia repair H/O rectal polypectomy H/O vasectomy History of appendectomy History of carpal tunnel surgery of left wrist History of colon resection Hx of tonsillectomy Family History Family History Father Family history of Alzheimer's disease Patient's father is , Onset Age: 88 Heart disease Dementia Sibling Family history of Parkinson's disease Cerebrovascular accident Hypertension Mother Family history of heart disease in male family member before age 55 Rheumatoid arthritis Family history of Alzheimer's disease Hypertension Grandparent Dementia Social History Social History Social History: Patient stated over the last week he dropped down to about half a pack a cigarettes or last maybe 1/3 of a pack. He lives with his dog. The patient may drink 6-10 stag beers in a week's time. The patient tells me that he does have medical marijuana 80 smokes though oils. Smoking packs per day: 0.5 Smoking cigarettes per day: 10.0 Years smoked: 50 Smoking pack-years: 25.00 Smoking status: Former smoker Second hand tobacco smoke exposure: Yes Additional smoking assessment comments: Pt quit smoking 1 month ago. Alcohol intake: former Drinks per week: 3 Alcohol use details: BEERS/DRINKS Substance use: current Substance use type: marijuana Other substance usage details: MEDICAL CARD- COUPLE TIMES A WEEK SMOKES Last use: 08/04/20 Lack of Transportation: No Lack of Food: Never True Current Housing: I Have Housing Concerned About Future Housing: No Difficu
[2023-02-11] VITALS (21 sets, daily range): BP systolic 95–143; BP diastolic 56–78; PULSE 58–92; RESP 13–20; TEMP 36.1–36.8; O2SAT 90–96; BMI 33.0
--- NOTE | 2023-02-11 | ECHO_ITS ---
Patient Info Name: Dez Platt Age: 67 years : 1955 Gender: Male Ht: 69 in Wt: 237 lbs BSA: 2.33 m2 HR: 56 bpm BP: 139 / 92 mmHg Heart Rhythm: Sinus Rhythm, Bradycardia Technical Quality: Fair Exam Date: 02/11/2023 8:44 AM Exam Location: Echo Lab Exam Room: 305 Patient Status: Inpatient Admit Date: 02/10/2023 Staff Ordering Physician: Mikaela Ray APRN Attending Provider: Dimas Maddox MD Referring Physician: Flor LEAL; Exam Type: CA echo doppler color flow Study Info Indications - chf copd Complete two-dimensional, color flow and Doppler transthoracic echocardiogram is performed. Summary 1. Complete two-dimensional, color flow and Doppler transthoracic echocardiogram is performed. 2. Limited study with limited views. Regional wall motion assessment limited due to poor endomyocardial border definition in several views. 3. Left ventricular chamber dimension is normal. 4. Left ventricular systolic function is normal, estimated at 60-65%. 5. There is moderately increased left ventricular wall thickness. 6. The left ventricular diastolic function is grade I diastolic dysfunction. 7. Right ventricular chamber dimension is normal. 8. Right ventricular systolic function is normal. Prominent moderator band, mild calcification of chordal apparatus. 9. There is trace mitral valve regurgitation. 10. There is mild aortic valve regurgitation. 11. There is trace tricuspid valve regurgitation. 12. No pulmonary hypertension, estimated pulmonary arterial systolic pressure is 27 mmHg. 13. The aortic root size at the sinus of Valsalva is mildly dilated 4.2cm. 14. The prox ascending aorta size is moderately dilated at 4.7cm. Consider CT chest if clinically indicated. Left Ventricle Left ventricular chamber dimension is normal. Left ventricular systolic function is normal, estimated at 60-65%. There is moderately increased left ventricular wall thickness. The left ventricular diastolic function is grade I diastolic dysfunction. Limited study with limited views. Regional wall motion assessment limited due to poor endomyocardial border definition in several views. Right Ventricle Right ventricular chamber dimension is normal. Right ventricular systolic function is normal. Prominent moderator band, mild calcification of chordal apparatus. Left Atria Left atrial chamber dimension is not well visualized. Right Atria Right atrial chamber dimension is not well visualized. Aortic Valve The aortic valve is not well visualized. There is mild aortic valve regurgitation. Pulmonic Valve The pulmonic valve is not well visualized. Mitral Valve The mitral valve has normal leaflets. There is trace mitral valve regurgitation. The mitral valve annulus is mildly calcified. Tricuspid Valve The tricuspid valve leaflets are normal. There is trace tricuspid valve regurgitation. No pulmonary hypertension, estimated pulmonary arterial systolic pressure is 27 mmHg. Pericardium/Pleural The pericardium appears normal. There is small pericardial effusion. Inferior Vena Cava Normal inferior vena cava with >50% collapse upon inspiration consistent with normal right atrial pressure, 5 mmHg. Aorta The aortic root size at the sinus of Valsalva is mildly dilated 4.2cm. The prox ascending aorta size is moderately dilated at 4.7cm. Consider CT chest if clinically indicated. There is mild aortic atherosclerosis. Left Ventricular Outflow Tract Name Value No
[2023-02-11] MEDS: FUROSEMIDE INJ 40 MG/4 ML VIAL 20 MG IV PUSH (01:33)
[2023-02-11] MEDS: methylPREDNISolone SOD SUCC 125 MG VIAL 60 MG IV PUSH ×4 (01:33→21:03)
[2023-02-11] MEDS: METOPROLOL SUCCINATE EXT REL 50 MG TABCR BY MOUTH ×2 (01:36→20:10)
[2023-02-11] MEDS: oxyCODONE HCL (*CRX) 5 MG TAB IR PO ×3 (01:37→16:52)
[2023-02-11] MEDS: ALBUTEROL SULFATE NEB 2.5 MG/3 ML INH INHALATION ×3 (02:55→14:16)
[2023-02-11 07:01] LABS: Hematocrit 28.2 % (42.0-52.0); Hemoglobin 8.4 g/dL (14.0-18.0); Immature Granulocyte Absolute 0.04 K/mm3 (0.00-0.031); Immature Granulocyte Percent A 0.8 % (0-0.5); Lymphocytes Absolute Auto 0.15 K/mm3 (0.9-3.2); Mean Corpuscular HGB Conc 29.8 g/dl (32-36); Mean Corpuscular Hemoglobin 23.1 pg (26-34); Mean Corpuscular Volume 77.7 fl (80-100); Mean Platelet Volume 8.9 fl (7.4-10.4); Monocytes Absolute Auto 0.1 K/mm3 (0.1-0.6); Monocytes Percent Auto 1.8 % (2.6-8.5); Neutrophils Absolute Auto 4.7 K/mm3 (1.3-6.7); Neutrophils Percent Auto 94.4 % (45.5-73.1); Platelet Count Result 332 k/mm3 (150-375); Red Blood Count 3.63 M/mm3 (4.6-6.20); White Blood Count 4.9 K/mm3 (4.5-10.0)
[2023-02-11 07:09] LABS: Anion Gap 8 mmol/L (8-16); Blood Urea Nitrogen 20 mg/dL (9-20); Calcium 9.4 mg/dL (8.4-10.2); Carbon Dioxide 30 mmol/L (22-30); Chloride 93 mmol/L (98-107); Estimated CRCL calculation 147 ml/min; Estimated Glomerular Filt Rate > 60; Glucose 124 mg/dL (65-110); Magnesium 1.9 mg/dL (1.6-2.3); Phosphorus 5.2 mg/dL (2.5-4.5); Potassium 4.3 mmol/L (3.4-5.0); Sodium 131 mmol/L (137-145)
[2023-02-11 07:43] LABS: Anisocytosis 2+ (NORMAL); Hypochromasia 2+ (NORMAL); Ovalocytes 1+ (NORMAL); Platelet Estimate Adequate (Adequate); Schistocytes None Seen (NORMAL); Target Cells 1+ (NORMAL)
--- NOTE | 2023-02-11 08:16 | PM.IMPN ---
Progress Note: A&P Assessment and Plan (1) Acute exacerbation of chronic obstructive pulmonary disease: Code(s): J44.1 - Chronic obstructive pulmonary disease with (acute) exacerbation Status: Acute Assessment and Plan: 02/11/23: Currently on 2 L nasal cannula Continue with Solu-Medrol Continue with Rocephin and azithromycin Continue with DuoNebs Patient received 20 mg of Lasix IV 1 dose PT and OT ordered Patient is a current every day smoker, nicotine patch has been ordered (2) Lung cancer metastatic to brain: Code(s): C34.90 - Malignant neoplasm of unspecified part of unspecified bronchus or lung; C79.31 - Secondary malignant neoplasm of brain Status: Chronic Assessment and Plan: 02/11/23: Of note Continue Keppra (3) Essential (primary) hypertension: Code(s): I10 - Essential (primary) hypertension Status: Chronic Assessment and Plan: 02/11/23: Blood pressures ranging Home medication restarted lisinopril and metoprolol Echocardiogram done today revealed normal LV systolic function estimated EF 60-65%, grade 1 diastolic dysfunction, RV function normal (4) Mixed hyperlipidemia: Code(s): E78.2 - Mixed hyperlipidemia Status: Chronic Assessment and Plan: 02/11/23: Continue atorvastatin (5) GERD (gastroesophageal reflux disease): Code(s): K21.9 - Gastro-esophageal reflux disease without esophagitis Status: Acute Assessment and Plan: 02/11/23: Continue Protonix (6) Anxiety: Code(s): F41.9 - Anxiety disorder, unspecified Status: Chronic Assessment and Plan: 02/11/23: Alprazolam ordered as needed for anxiety, discontinued clonazepam Time Spent With Patient Time with patient: Greater than 35 minutes Subjective Date/time seen: 02/11/23 08:16 Interval history: This is a 67 year old male who presented to the hospital on 02/10/23 with complaints of worsening shortness of breath. Patient has history of lung cancer with mets to the brain. Patient on 2L NC currently. Patient states that he wears 2-3 L at baseline. Work up in the hospital includes chest x-ray that revealed mild bilateral perihilar interstitial and subtle airspace opacities which could represent mild pulmonary edema or pneumonia, large left upper lobe mass concerning for primary bronchogenic carcinoma, emphysema. On examination patient is alert and oriented x3, lying in the bed. He reports pain in his right arm, leg, and side. VSS, he is on 2LNC, he is afebrile. He denies any nausea, vomiting, diarrhea, abdominal pain, fever, chills, chest pain, shortness of breath. Labs today revealed WBC 4.9, hemoglobin 8.4, hematocrit 28.2, platelet count 332, sodium 131, potassium 4.3, chloride 93, carbon dioxide 30, BUN 20, creatinine 0.5, blood sugars ranging 90-124, calcium 9.4, phosphorus 5.2, magnesium 1.9. Review of Systems Review of Systems: All systems reviewed & are unremarkable except as noted in HPI and below Constitutional: Constitutional: Reports as per HPI and Reports no additional constitutional complaints Eyes: Eyes: Reports as per HPI and Reports no additional eye complaints ENT: Reports system reviewed and no additional complaints, except as documented and Reports as per HPI Cardiovascular: Cardiovascular: Reports as per HPI and Reports no additional cardiovascular complaints Respiratory: Respiratory: Reports as per HPI and Reports no additional respiratory complaints Gastrointestinal: Gastrointestinal: Reports as per HPI and Reports no additional gastrointestinal complaints Genitourinary: Genitourinary: Reports no additional male genitourinary complaints and Reports as per HPI Musculoskeletal: Musculoskeletal: Reports no additional musculoskeletal complaints and Reports as per HPI Integumentary/Breasts: Skin/Breast: Reports system reviewed and no additional complaints, except as docu and Reports as per HPI Neurologic: Reports system
[2023-02-11] MEDS: ENOXAPARIN 40 MG/0.4 ML SYRINGE SUB-Q (09:30)
[2023-02-11] MEDS: LIDOCAINE 5% PATCH 1 PATCH TRANSDERM (09:30)
[2023-02-11] MEDS: ATORVASTATIN 10 MG TABLET PO ×2 (09:31)
[2023-02-11] MEDS: OMEGA 3 POLYUNSAT FATTY ACIDS 1 GM CAP 2 GM PO (09:31)
[2023-02-11] MEDS: ASPIRIN 81 MG ENTERIC TABLET PO ×2 (09:31→09:32)
[2023-02-11] MEDS: MULTIVITAMINS /C LUTEIN (CENTRUM SILVER) TABLET *BKC 1 TAB PO (09:31)
[2023-02-11] MEDS: PANTOPRAZOLE 40 MG TABLET PO (09:32)
[2023-02-11] MEDS: THERAPEUTIC MULTIVITAMINS/MINERALS TAB (*BKC) 1 TABLET PO (09:32)
[2023-02-11] MEDS: hydrOXYzine HCL 10 MG TABLET PO ×2 (09:32→16:51)
[2023-02-11] MEDS: ESCITALOPRAM OXALATE 10 MG TABLET 20 MG PO ×2 (09:32→09:33)
[2023-02-11] MEDS: CLOPIDOGREL BISULFATE 75 MG TABLET PO (09:32)
[2023-02-11] MEDS: levETIRAcetam 500 MG TABLET PO ×2 (09:32→20:10)
[2023-02-11] MEDS: clonazePAM (*CRX) 0.5 MG TABLET PO (09:33)
[2023-02-11] MEDS: DEXAMETHASONE 4 MG TABLET PO ×2 (09:33→16:52)
[2023-02-11] MEDS: lisinopriL 20 MG TABLET 40 MG PO (09:33)
[2023-02-11] MEDS: FLUTICASONE/UMECLIDIN/VILANTER 100-62.5-25 MCG ELLIPTA 1 PUFF INHALATION (10:15)
[2023-02-11] MEDS: ALPRAZolam (*CRX) 0.5 MG TABLET PO (16:51)
[2023-02-11] MEDS: ACETAMINOPHEN 325 MG TABLET 650 MG PO (20:10)
[2023-02-12] MEDS: hydrOXYzine HCL 10 MG TABLET PO (02:55)
[2023-02-12] MEDS: oxyCODONE HCL (*CRX) 5 MG TAB IR PO ×3 (02:56→21:34)
[2023-02-12 04:00] VITALS: BP 137/83; PULSE 58; RESP 14; TEMP 36.2; O2SAT 97
[2023-02-12] MEDS: methylPREDNISolone SOD SUCC 125 MG VIAL 60 MG IV PUSH ×3 (05:02→21:31)
[2023-02-12 07:09] LABS: Hematocrit 28.2 % (42.0-52.0); Hemoglobin 8.2 g/dL (14.0-18.0); Immature Granulocyte Absolute 0.05 K/mm3 (0.00-0.031); Lymphocytes Absolute Auto 0.24 K/mm3 (0.9-3.2); Lymphocytes Percent Auto 4.8 % (18.3-44.2); Mean Corpuscular HGB Conc 29.1 g/dl (32-36); Mean Corpuscular Hemoglobin 22.8 pg (26-34); Mean Corpuscular Volume 78.6 fl (80-100); Mean Platelet Volume 9.5 fl (7.4-10.4); Monocytes Absolute Auto 0.3 K/mm3 (0.1-0.6); Monocytes Percent Auto 5.9 % (2.6-8.5); Neutrophils Absolute Auto 4.4 K/mm3 (1.3-6.7); Neutrophils Percent Auto 88.3 % (45.5-73.1); Platelet Count Result 340 k/mm3 (150-375); Red Blood Count 3.59 M/mm3 (4.6-6.20)
[2023-02-12 07:19] LABS: Anion Gap 7 mmol/L (8-16); Blood Urea Nitrogen 27 mg/dL (9-20); Calcium 9.3 mg/dL (8.4-10.2); Carbon Dioxide 29 mmol/L (22-30); Chloride 96 mmol/L (98-107); Estimated CRCL calculation 142 ml/min; Estimated Glomerular Filt Rate > 60; Glucose 111 mg/dL (65-110); Potassium 3.9 mmol/L (3.4-5.0); Sodium 132 mmol/L (137-145)
--- NOTE | 2023-02-12 07:54 | PM.DS ---
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 Gastritis AVM Iron deficiency anemia Obesity DS: Discharge Diagnosis Discharge Diagnosis (1) Acute exacerbation of chronic obstructive pulmonary disease: Code(s): J44.1 - Chronic obstructive pulmonary disease with (acute) exacerbation Status: Acute (2) Lung cancer metastatic to brain: Code(s): C34.90 - Malignant neoplasm of unspecified part of unspecified bronchus or lung; C79.31 - Secondary malignant neoplasm of brain Status: Chronic (3) Essential (primary) hypertension: Code(s): I10 - Essential (primary) hypertension Status: Chronic (4) Mixed hyperlipidemia: Code(s): E78.2 - Mixed hyperlipidemia Status: Chronic (5) GERD (gastroesophageal reflux disease): Code(s): K21.9 - Gastro-esophageal reflux disease without esophagitis Status: Acute (6) Anxiety: Code(s): F41.9 - Anxiety disorder, unspecified Status: Chronic DS: Summary Hospital Course Reason for hospitalization: COPD with acute exacerbation Lung cancer with mets to brain Hospital Course: This is a 67 year old male who presented to the hospital on 02/10/23 with complaints of worsening shortness of breath. Patient has history of lung cancer with mets to the brain. Patient on 2L NC currently.? Patient states that he wears 2-3 L at baseline. Work up in the hospital includes chest x-ray that revealed mild bilateral perihilar interstitial and subtle airspace opacities which could represent mild pulmonary edema or pneumonia, large left upper lobe mass concerning for primary bronchogenic carcinoma, emphysema. Echo revealing normal LV systolic function with grade 1 diastolic dysfunction, EF 60-65%, RV function normal. He was placed on solu-medrol IV and neb treatments, his oxygen was weaned down. On examination today patient is alert and oriented x3, seems more agitated today, lying in the bed. VSS, he is on 2L NC which is his baseline, he remains afebrile. He reports that his pain is 9/10 and has been with his cancer diagnosis. He states it is controlled as long as the nurses stay on top of his pain medications. Labs today revealed hemoglobin 8.2, hematocrit 28.0, sodium 130, potassium 4.0, chloride 94, BUN 31, creatinine 0.6, blood sugars ranging 111-131. He denies any new complaints at this time. Lungs clear to auscultation, he is back to his baseline oxygen requirements according to him, he is stable for discharge back to his facility. He will need to follow up with PCP in 1 week. Final diagnosis: COPD with acute exacerbation Status at Discharge Cognitive/behavioral status at discharge: Alert and oriented x3 Functional status at discharge: uses cane/walker Overall status at discharge: patient is progressing back to baseline Time Spent with Patient Time attestation: Total time spent providing and/or coordinating discharge services: Time spent: Greater than 30 minutes Exam Narrative: General: In no acute distress, well nourished Head: atraumatic, no encephalopathy Eyes: EOMI, PERRLA, sclera clear ENT: moist mucous membranes, nasal passages clear Neck: supple, no JVD, no adenopathy, trachea midline Cardiac: Normal S1 and S2. No murmur, gallops or friction rubs, peripheral pulses intact. Respiratory: Lungs clear to auscultation, no adventitious lung sounds is currently on 2 L Gastrointestinal: soft, non-distended, non-tender, normoactive bowel sounds. : voiding without difficulty. Extremities: moves all extremities well, no edema, good ROM, strength 5/5 Skin: clean, dry, intact. No wounds or lesions. Neuro: Alert and oriented x4, cranial nerves intact, no neuro deficits. Psych: agitated, argumentative DS: Data Data Completed and Pending Completed studies during hospitalization: Chest x-ray Pending studies at discharge: Non
[2023-02-12 07:58] LABS: Anisocytosis 2+ (NORMAL); Hypochromasia 2+ (NORMAL); Platelet Estimate Adequate (Adequate)
[2023-02-12 07:59] LABS: Ovalocytes 1+ (NORMAL); Schistocytes Rare (NORMAL)
[2023-02-12 08:00] VITALS: O2SAT 97
[2023-02-12] MEDS: ESCITALOPRAM OXALATE 10 MG TABLET 20 MG PO (08:56)
[2023-02-12] MEDS: MULTIVITAMINS /C LUTEIN (CENTRUM SILVER) TABLET *BKC 1 TAB PO (08:56)
[2023-02-12] MEDS: PANTOPRAZOLE 40 MG TABLET PO (08:56)
[2023-02-12] MEDS: ENOXAPARIN 40 MG/0.4 ML SYRINGE SUB-Q (08:56)
[2023-02-12] MEDS: lisinopriL 20 MG TABLET 40 MG PO (08:57)
[2023-02-12] MEDS: levETIRAcetam 500 MG TABLET PO (08:57)
[2023-02-12] MEDS: DEXAMETHASONE 4 MG TABLET PO ×2 (08:57→16:13)
[2023-02-12] MEDS: FERROUS SULFATE 325 MG TABLET DR PO (08:57)
[2023-02-12] MEDS: OMEGA 3 POLYUNSAT FATTY ACIDS 1 GM CAP 2 GM PO (08:57)
[2023-02-12] MEDS: ATORVASTATIN 10 MG TABLET PO (08:57)
[2023-02-12] MEDS: ASPIRIN 81 MG ENTERIC TABLET PO (08:57)
[2023-02-12] MEDS: THERAPEUTIC MULTIVITAMINS/MINERALS TAB (*BKC) 1 TABLET PO (08:58)
[2023-02-12] MEDS: CLOPIDOGREL BISULFATE 75 MG TABLET PO (09:03)
[2023-02-12] MEDS: FLUTICASONE/UMECLIDIN/VILANTER 100-62.5-25 MCG ELLIPTA 1 PUFF INHALATION (09:16)
[2023-02-12 09:22] VITALS: O2SAT 97
--- NOTE | 2023-02-12 13:27 | PM.IMPN ---
Progress Note: A&P Assessment and Plan (1) Acute exacerbation of chronic obstructive pulmonary disease: Code(s): J44.1 - Chronic obstructive pulmonary disease with (acute) exacerbation Status: Acute Assessment and Plan: 02/11/23: Currently on 2 L nasal cannula Continue with Solu-Medrol Continue with Rocephin and azithromycin Continue with DuoNebs Patient received 20 mg of Lasix IV 1 dose PT and OT ordered Patient is a current every day smoker, nicotine patch has been ordered 02/12/23: Patient back to baseline oxygen needs no change to current treatment plan Patient is ready for discharge pending insurance approval back to SNF, case coordination working on this. (2) Lung cancer metastatic to brain: Code(s): C34.90 - Malignant neoplasm of unspecified part of unspecified bronchus or lung; C79.31 - Secondary malignant neoplasm of brain Status: Chronic Assessment and Plan: 02/11/23: Of note Continue Keppra 02/12/23: Discontinued Keppra as this is not something he has been taking at home. No signs of seizure activity this admission. (3) Essential (primary) hypertension: Code(s): I10 - Essential (primary) hypertension Status: Chronic Assessment and Plan: 02/11/23: Blood pressures ranging Home medication restarted lisinopril and metoprolol Echocardiogram done today revealed normal LV systolic function estimated EF 60-65%, grade 1 diastolic dysfunction, RV function normal 02/12/23: 110/73-137/83 No change to current treatment plan (4) Mixed hyperlipidemia: Code(s): E78.2 - Mixed hyperlipidemia Status: Chronic Assessment and Plan: 02/11/23: Continue atorvastatin (5) GERD (gastroesophageal reflux disease): Code(s): K21.9 - Gastro-esophageal reflux disease without esophagitis Status: Acute Assessment and Plan: 02/11/23: Continue Protonix (6) Anxiety: Code(s): F41.9 - Anxiety disorder, unspecified Status: Chronic Assessment and Plan: 02/11/23: Alprazolam ordered as needed for anxiety, discontinued clonazepam Time Spent With Patient Time with patient: Greater than 35 minutes Subjective Date/time seen: 02/12/23 13:27 Interval history: 02/11/23: This is a 67 year old male who presented to the hospital on 02/10/23 with complaints of worsening shortness of breath. Patient has history of lung cancer with mets to the brain. Patient on 2L NC currently. Patient states that he wears 2-3 L at baseline. Work up in the hospital includes chest x-ray that revealed mild bilateral perihilar interstitial and subtle airspace opacities which could represent mild pulmonary edema or pneumonia, large left upper lobe mass concerning for primary bronchogenic carcinoma, emphysema. On examination patient is alert and oriented x3, lying in the bed. He reports pain in his right arm, leg, and side. VSS, he is on 2LNC, he is afebrile. He denies any nausea, vomiting, diarrhea, abdominal pain, fever, chills, chest pain, shortness of breath. Labs today revealed WBC 4.9, hemoglobin 8.4, hematocrit 28.2, platelet count 332, sodium 131, potassium 4.3, chloride 93, carbon dioxide 30, BUN 20, creatinine 0.5, blood sugars ranging 90-124, calcium 9.4, phosphorus 5.2, magnesium 1.9. 02/12/23: On examination today patient is alert and oriented x3, lying in the bed. VSS, he remains afebrile, he is currently on 2L NC with oxygen saturation of 97%. He is reporting that his cancer pain is 9/10 on a regular basis and is controlled as long as nursing stays on top of his pain medications. He seems more agitated and argumentative today than he was yesterday possibly due to the metastatic brain cancer versus anger stage of grieving his diagnosis. Labs today reveal WBC 5.0, Hgb 8.2, Hct 28.2, Na+ 132, K+ 3.9, Chloride 96, BUN 27, Creatinine 0.5, BG ranging 90-124. Case management waiting for authorization from insurance to send him back to SNF. We will keep h
[2023-02-12 14:00] VITALS: BP 126/67; PULSE 86; RESP 20; TEMP 36.7; O2SAT 97
[2023-02-12] MEDS: ALPRAZolam (*CRX) 0.5 MG TABLET PO ×2 (15:26→21:34)
[2023-02-12 21:31] VITALS: PULSE 75
[2023-02-12] MEDS: METOPROLOL SUCCINATE EXT REL 50 MG TABCR BY MOUTH (21:31)
[2023-02-12 22:00] VITALS: BP 142/85; PULSE 75; RESP 22; TEMP 36.9; O2SAT 98
[2023-02-13] MEDS: MELATONIN 5 MG TABLET PO (01:50)
[2023-02-13] MEDS: oxyCODONE HCL (*CRX) 5 MG TAB IR PO ×2 (04:17→10:04)
[2023-02-13] MEDS: ALPRAZolam (*CRX) 0.5 MG TABLET PO ×3 (04:17→14:45)
[2023-02-13] MEDS: methylPREDNISolone SOD SUCC 125 MG VIAL 60 MG IV PUSH ×2 (05:40→14:45)
[2023-02-13 06:00] VITALS: BP 128/70; PULSE 78; RESP 20; TEMP 36.6; O2SAT 96
[2023-02-13 06:50] LABS: Hemoglobin 8.2 g/dL (14.0-18.0); Immature Granulocyte Absolute 0.04 K/mm3 (0.00-0.031); Immature Granulocyte Percent A 0.7 % (0-0.5); Lymphocytes Percent Auto 3.6 % (18.3-44.2); Mean Corpuscular HGB Conc 29.3 g/dl (32-36); Mean Corpuscular Hemoglobin 22.8 pg (26-34); Mean Platelet Volume 9.3 fl (7.4-10.4); Monocytes Absolute Auto 0.3 K/mm3 (0.1-0.6); Monocytes Percent Auto 5.3 % (2.6-8.5); Neutrophils Percent Auto 90.4 % (45.5-73.1); Platelet Count Result 333 k/mm3 (150-375); Red Blood Count 3.59 M/mm3 (4.6-6.20); Red Cell Distribution Width 22.7 % (11.5-14.5); White Blood Count 5.5 K/mm3 (4.5-10.0)
[2023-02-13 06:59] LABS: Anion Gap 3 mmol/L (8-16); Blood Urea Nitrogen 31 mg/dL (9-20); Calcium 9.2 mg/dL (8.4-10.2); Carbon Dioxide 33 mmol/L (22-30); Chloride 94 mmol/L (98-107); Estimated CRCL calculation 121 ml/min; Estimated Glomerular Filt Rate > 60; Glucose 131 mg/dL (65-110); Sodium 130 mmol/L (137-145)
[2023-02-13 07:50] LABS: Anisocytosis 2+ (NORMAL); Platelet Estimate Adequate (Adequate)
[2023-02-13 07:51] LABS: Ovalocytes 1+ (NORMAL); Schistocytes Rare (NORMAL); Target Cells 1+ (NORMAL)
[2023-02-13 07:52] LABS: Hypochromasia 2+ (NORMAL)
[2023-02-13] MEDS: FLUTICASONE/UMECLIDIN/VILANTER 100-62.5-25 MCG ELLIPTA 1 PUFF INHALATION (07:52)
[2023-02-13 07:54] VITALS: PULSE 83; RESP 22
[2023-02-13 07:56] VITALS: PULSE 83; RESP 22; O2SAT 95
[2023-02-13 08:00] VITALS: O2SAT 95
[2023-02-13] MEDS: OMEGA 3 POLYUNSAT FATTY ACIDS 1 GM CAP 2 GM PO (09:19)
[2023-02-13] MEDS: ENOXAPARIN 40 MG/0.4 ML SYRINGE SUB-Q (09:19)
[2023-02-13] MEDS: MULTIVITAMINS /C LUTEIN (CENTRUM SILVER) TABLET *BKC 1 TAB PO (09:20)
[2023-02-13] MEDS: CLOPIDOGREL BISULFATE 75 MG TABLET PO (09:20)
[2023-02-13] MEDS: PANTOPRAZOLE 40 MG TABLET PO (09:20)
[2023-02-13] MEDS: ESCITALOPRAM OXALATE 10 MG TABLET 20 MG PO (09:20)
[2023-02-13] MEDS: DEXAMETHASONE 4 MG TABLET PO (09:20)
[2023-02-13] MEDS: lisinopriL 20 MG TABLET 40 MG PO (09:20)
[2023-02-13] MEDS: ATORVASTATIN 10 MG TABLET PO (09:20)
[2023-02-13] MEDS: ASPIRIN 81 MG ENTERIC TABLET PO (09:21)
--- NOTE | 2023-02-13 09:39 | PCOTNOTE ---
The patient treatment was not able to be completed Patient wants to eat a hot breakfast first. Will follow up later. Will plan to continue treatment per plan of care.
--- NOTE | 2023-02-13 09:59 | PCPTNOTE ---
attempted PT eval 930- pt was eating breakfast and asked PT to come back later.
[2023-02-13 13:48] VITALS: BP 128/82; PULSE 70; RESP 16; TEMP 36.8; O2SAT 97
[2023-02-13] MEDS: ACETAMINOPHEN 325 MG TABLET 650 MG PO (14:46)
--- NOTE | 2023-02-13 15:18 | PC.NURSE ---
ATTEMPTED TO GIVE REPORT TO RECEIVING FACILITY. CALLED AT 1509. WHEN THIER ADJUSTMENT SUPERVISOR ATTEMPTED TO TRANSFER TO RECEIVING NURSE, THE PHONE WENT . TRIED CALLING BACK AND WAS PUT ON HOLD, AFTER A FEW MINUTES THE PHONE WENT AGAIN. TRIED CALLING A THIRD TIME AND GOT AN ANSWERING MACHINE. THIS NURSE LEFT A MESSAGE STATING PT IS COMING BACK BY AMBULANCE AND LEFT A CALL BACK NUMBER SO THEY CAN CALL AND GET REPORT.
== END 2023-02-13 17:25 | DRG 191 ==
LOC: ANHED 17:22 → ANH3MEDSUR 02-11 07:20
PROVIDERS: Family Medicine; Admitting Provider Internal Medicine; Emergency Provider Emergency Medicine; PCP Internal Medicine; Visit Provider Nurse Practitioner Acute Care
DX: J43.9 Emphysema, unspecified (principal); C34.90 Malignant neoplasm of unspecified part of unspecified bronchus or lung; C79.31 Secondary malignant neoplasm of brain; D50.9 Iron deficiency anemia, unspecified; E66.09 Other obesity due to excess calories; E78.2 Mixed hyperlipidemia; F17.210 Nicotine dependence, cigarettes, uncomplicated; F41.9 Anxiety disorder, unspecified; G89.4 Chronic pain syndrome; I10 Essential (primary) hypertension; I25.10 Atherosclerotic heart disease of native coronary artery without angina pectoris; K21.9 Gastro-esophageal reflux disease without esophagitis; K29.70 Gastritis, unspecified, without bleeding; K31.819 Angiodysplasia of stomach and duodenum without bleeding; Z79.82 Long term (current) use of aspirin; Z68.32 Body mass index [BMI] 32.0-32.9, adult; Z86.73 Personal history of transient ischemic attack (TIA), and cerebral infarction without residual deficits; Z90.49 Acquired absence of other specified parts of digestive tract; Z79.02 Long term (current) use of antithrombotics/antiplatelets
CPT/HCPCS: 36415; 71045; 80048; 80053; 83735; 83880; 84100; 84484; 85025; 93005; 93306; 94640; 96365; 96375; 97165; 97530; 99285; A9270; J0456; J0696; J1650; J1940; J2930; J7512; J8540

== ENCOUNTER 2023-03-08 13:05 | Emergency (ER) | payer MEDICARE, MEDICAID, SELFPAY ==
[2023-03-08] VITALS (8 sets, daily range): BP systolic 94–126; BP diastolic 73–86; PULSE 105–114; RESP 22–29; TEMP 36.6–37.6; O2SAT 87–100
--- NOTE | ~2023-03-08 | XR_ITS ---
XR chest 1V portable 03/08/2023 15:06 Indication: Shortness of breath Procedure: AP portable chest Comparison: Comparison to multiple prior studies sequentially, with oldest reviewed study dated 03/2018 external. Findings: Left upper lobe mass, consistent with bronchogenic carcinoma until proven otherwise. Diffus e bilateral interstitial infiltrates. Cardiomegaly. No significant effusion. No pneumothorax. Impression: 1: Diffuse bilateral interstitial infiltrates which may represent edema or pneumonia. 2: Left upper lobe mass measuring 8 cm, consistent with bronchogenic carcinoma until proven otherwise . Recommend correlation with CT chest with contrast. Reviewed, dictated and finalized at location B. NING [facility]EDER Impression: 1: Diffuse bilateral interstitial infiltrates which may represent edema or pneu monia. 2: Left upper lobe mass measuring 8 cm, consistent with bronchogenic carcinoma until proven otherwise. Recommend correlation with CT chest with contrast.
--- NOTE | 2023-03-08 13:07 | ECG_ITS ---
Measurements Intervals [place] Rate: 105 P: 66 DC: 186 QRS: 116 QRSD: 114 T: 29 QT: 342 QTc: 453 Interpretive Statements SINUS TACHYCARDIA RIGHT VENTRICULAR HYPERTROPHY AND ST-T CHANGE [SOME/ALL OF: PROMINENT R IN V1, LATE TRANSITION, RAD, DAISY, SSS, RIGHT PRECORDIA POSSIBLE INFERIOR MYOCARDIAL INFARCTION , OF INDETERMINATE AGE [30 ms Q WAVE IN II/aVF] COMPARED TO ECG 02/10/2023 17:00:53 SINUS TACHYCARDIA NOW PRESENT Electronically Signed On 03-08-2023 21:05:23 CDL INSTRUCTOR by Carlito Bardales M.D.
--- NOTE | 2023-03-08 13:16 | ED.SEIZURE ---
HPI - Seizure General Chief Complaint: Seizure Stated Complaint: Seizure History of Present Illness HPI Narrative: Patient is a 68-year-old male with history of lung cancer with mets to brain, left sided paralysis, COPD here with seizure. Patient had gamma knife radiation yesterday, currently lives at a facility. Son notes that around 11 this morning he began having seizure like activity, he was given 2 mg of Ativan by staff and EMS was called who provided him with some Versed. He has slowed down significantly per son but continues to have some twitching on the left side where he has known paralysis due to his brain masses. This morning, forms were consent forms were completed to initiate hospice care through [facility]. They additionally note history of COPD, his breathing seems to be around baseline per family. No fever or chills. Seizure History: Yes (2pm 02/10/23) Related Data Home Medications Medication Instructions Recorded Confirmed aspirin 81 mg tablet,delayed 81 mg PO DAILY 01/31/19 02/10/23 release (Adult Low Dose Aspirin) fouxwrhw-kap-duxgx acid 0.4 1 tablet PO DAILY 07/10/20 02/10/23 mg-lycopene 300 mcg-lutein 250 mcg tablet (Centrum Silver) omega 8-qho-mhd-fish oil 100 2 cap PO DAILY 04/02/21 02/10/23 mg-160 mg-1,000 mg capsule (Fish Oil) lisinopril 40 mg tablet 40 mg PO DAILY 09/21/22 02/10/23 fluticasone fur. 100 mcg-umeclid 1 inh inhalation DAILY 02/10/23 02/10/23 62.5 mcg-vilant 25 mcg inhalat.powder (Trelegy Ellipta) oxycodone 5 mg tablet 5 mg PO Q6H PRN Pain 02/10/23 02/10/23 Allergies Allergy/AdvReac Type Severity Reaction Status Date / Time venom-honey bee Allergy Severe ANAPHYLAXIS Verified 01/11/23 15:40 ciprofloxacin Allergy Intermediate Rash Verified 01/11/23 15:40 adhesive tape Allergy Mild BLISTERS Verified 01/11/23 15:40 Review of Systems Review of Systems: ROS unobtainable: Yes unobtainable due to mental status PMFSH Past Medical History Medical History (Updated 03/08/23 @ 16:43 by Karely San MD) Abnormal EKG Acute exacerbation of chronic obstructive pulmonary disease (COPD) Anemia Antiplatelet or antithrombotic long-term use Anxiety Arthritis AVM (arteriovenous malformation) of stomach, acquired Bilateral carotid bruits Body mass index (BMI) 35.0-35.9, adult (10/15/18) CAD (coronary atherosclerotic disease) Carotid artery disease Chronic low back pain Chronic pain syndrome Cigarette nicotine dependence without complication Colovesical fistula COPD (chronic obstructive pulmonary disease) Diverticulitis WHITNEY (dyspnea on exertion) Elevated liver enzymes Emphysema of lung Esophageal ulcer Essential (primary) hypertension Gastritis GERD (gastroesophageal reflux disease) GI bleed Hypercholesterolemia Hypertension Liver disease Lung cancer metastatic to brain Mixed hyperlipidemia Nicotine dependence, cigarettes, with other nicotine-induced disorders Primary biliary cholangitis Rectal polyp Rotator cuff tear On the left without repair TIA (transient ischemic attack) 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 now sees okay Tobacco abuse Ulcer of esophagus without bleeding Surgical History Surgical History H/O inguinal hernia repair H/O rectal polypectomy H/O vasectomy History of appendectomy History of carpal tunnel surgery of left wrist History of colon resection Hx of tonsillectomy Family History Family History Father Family history of Alzheimer's disease Patient's father is , Onset Age: 88 Heart disease Dementia Sibling Family history of Parkinson's disease Cerebrovascular accident Hypertension Mother Family history of heart disease in male family member before age 55 Rheumatoid arthritis Family history of Alzheimer's disease Hypertension Grandparent Dementia Social History Social History S
[2023-03-08] MEDS: levETIRAcetam 1000MG/NACL100ML 1,000 MG/100 ML BAG 400 MG IVPB ×3 (13:17→13:18)
[2023-03-08] MEDS: LORazepam INJ (*CRX) 2 MG/ML VIAL IV PUSH ×2 (13:18→15:01)
[2023-03-08] MEDS: methylPREDNISolone SOD SUCC 125 MG VIAL IV PUSH (13:18)
[2023-03-08] MEDS: LACTATED RINGERS 1,000 ML 999 ML IV CONT (13:43)
[2023-03-08] MEDS: SODIUM CHLORIDE 0.9% IV 1,000 ML 999 ML IV CONT (13:45)
[2023-03-08 13:46] LABS: Basophils Percent Auto 0.2 % (0.2-1.2); Eosinophils Absolute Auto 0.1 K/mm3 (0-0.3); Hematocrit 31.5 % (42.0-52.0); Immature Granulocyte Absolute 0.09 K/mm3 (0.00-0.031); Immature Granulocyte Percent A 1.1 % (0-0.5); Lymphocytes Absolute Auto 0.77 K/mm3 (0.9-3.2); Lymphocytes Percent Auto 9.5 % (18.3-44.2); Mean Corpuscular HGB Conc 28.6 g/dl (32-36); Mean Corpuscular Hemoglobin 23.3 pg (26-34); Mean Corpuscular Volume 81.4 fl (80-100); Mean Platelet Volume 9.6 fl (7.4-10.4); Monocytes Percent Auto 11.9 % (2.6-8.5); Neutrophils Absolute Auto 6.2 K/mm3 (1.3-6.7); Neutrophils Percent Auto 76.3 % (45.5-73.1); Platelet Count Result 416 k/mm3 (150-375); Red Blood Count 3.87 M/mm3 (4.6-6.20); Red Cell Distribution Width 23.7 % (11.5-14.5); White Blood Count 8.1 K/mm3 (4.5-10.0)
[2023-03-08 13:56] LABS: Prothrombin Time 13.9 Seconds (11.1-14.7)
[2023-03-08 13:58] LABS: Alanine Aminotransferase 17 U/L (6-50); Albumin Level 3.8 g/dL (3.5-5.1); Alkaline Phosphatase 94 U/L (38-126); Anion Gap 9 mmol/L (8-16); Aspartate Amino Transferase 30 U/L (17-59); Bilirubin,Total 0.4 mg/dL (0.2-1.3); Blood Urea Nitrogen 11 mg/dL (9-20); Calcium 10.1 mg/dL (8.4-10.2); Carbon Dioxide 28 mmol/L (22-30); Chloride 92 mmol/L (98-107); Estimated CRCL calculation 169 ml/min; Estimated Glomerular Filt Rate > 60; Glucose 97 mg/dL (65-110); Potassium 4.2 mmol/L (3.4-5.0); Sodium 129 mmol/L (137-145)
[2023-03-08 13:59] LABS: CRP 2.2 mg/dL (<1.0); Creatine Kinase 44 U/L (55-170); Magnesium 1.7 mg/dL (1.6-2.3)
[2023-03-08] MEDS: ALBUTEROL SULFATE NEB 2.5 MG/3 ML INH 15 MG INHALATION (14:02)
[2023-03-08] MEDS: IPRATROPIUM BR 0.02% INH SOLN 0.5 MG/2.5 ML VIAL 1.5 MG INHALATION (14:02)
[2023-03-08 14:03] LABS: Hypochromasia 2+ (NORMAL); Ovalocytes 2+ (NORMAL); Schistocytes Rare (NORMAL); Target Cells 1+ (NORMAL); Tear Drop Cells 1+ (NORMAL)
[2023-03-08 14:08] LABS: Troponin I < 0.012 ng/mL (0.000-0.034)
--- NOTE | 2023-03-08 14:10 | PC.NURSE ---
Pt son at bedside discussing POC for hospice w/ Joe/care coordination at this time
[2023-03-08 14:22] LABS: Influenza A QL RT-PCR Negative (Negative); Influenza B QL RT-PCR Negative (Negative); RSV RNA, RT-PCR Negative (Negative); SARS-CoV-2 RNA PCR Positive (Negative)
[2023-03-08] MEDS: MORPHINE SULFATE (*CRX) 4 MG/ML INJ IV PUSH (16:01)
[2023-03-08] MEDS: ONDANSETRON INJ 4 MG/2 ML VIAL IV PUSH (16:01)
== END 2023-03-08 18:20 ==
PROVIDERS: Emergency Provider Student in an Organized Health Care Education/Training Program; PCP Internal Medicine
DX: R56.9 Unspecified convulsions (principal); R09.02 Hypoxemia; R06.02 Shortness of breath; J44.9 Chronic obstructive pulmonary disease, unspecified; C34.90 Malignant neoplasm of unspecified part of unspecified bronchus or lung; C79.31 Secondary malignant neoplasm of brain; I25.10 Atherosclerotic heart disease of native coronary artery without angina pectoris; E78.2 Mixed hyperlipidemia; I10 Essential (primary) hypertension; Z86.73 Personal history of transient ischemic attack (TIA), and cerebral infarction without residual deficits; Z20.822 Contact with and (suspected) exposure to COVID-19; Z87.891 Personal history of nicotine dependence
CPT/HCPCS: 36415; 71045; 80053; 82550; 83735; 84484; 85025; 85610; 85730; 86140; 87637; 93005; 94640; 96361; 96365; 96367; 96375; 96376; 99284; J1100; J1953; J2060; J2270; J2405; J2930; J7030; J7120